=== PATIENT | female | born 1950 | race Caucasian/White ===

== ENCOUNTER → 2022-02-28 07:44 | Outpatient (CLI) | payer MEDICARE, SELFPAY ==
--- NOTE | 2022-02-28 | DI.MG.S_ITS ---
BILATERAL DIGITAL SCREENING MAMMOGRAM 3D/2D WITH CAD: 02/28/2022 CLINICAL: Routine screening. Personal history of left breast cancer. Family history of breast cancer. Comparison is made to exams dated: 03/05/2018 mammogram, 02/28/2018 ultrasound, 02/28/2018 mammogram - [facility], 05/02/2009 mammogram - [facility], and 03/05/2018 ultrasound biopsy - [facility]. Both breasts are heterogeneously dense, which may obscure small masses (category c / 51-75% glandular tissue). Current study was also evaluated with a Computer Aided Detection (CAD) system. There is a possible new asymmetry in the left breast posterior depth superior region seen on the mediolateral oblique view only. No other significant masses, calcifications, or other findings are seen in either breast. IMPRESSION: INCOMPLETE: NEEDS ADDITIONAL IMAGING EVALUATION The possible new asymmetry in the left breast is indeterminate. Additional views with possible ultrasound are recommended. This exam was interpreted at Station ID: [id number]. NOTE: For mammograms, a report in lay terms will be sent to the patient. Approximately 15% of breast malignancies will not be visualized mammographically. In the management of a palpable breast mass, a negative mammogram must not discourage biopsy of a clinically suspicious lesion. Electronically Signed By: Geoffrey Chong M.D., jr/fátima:03/01/2022 13:10:44 letter sent: Additional Imaging Needed ACR BI-RADS Category 0: Incomplete [id number]
== END ==
PROVIDERS: PCP Family Medicine; Referring Provider Family Medicine; Visit Provider Family Medicine
DX: Z12.31 Encounter for screening mammogram for malignant neoplasm of breast (principal); Z85.3 Personal history of malignant neoplasm of breast; Z80.3 Family history of malignant neoplasm of breast
CPT/HCPCS: 77063; 77067

== ENCOUNTER → 2022-03-26 13:28 | Outpatient (CLI) | payer MEDICARE, SELFPAY ==
--- NOTE | 2022-03-26 | DI.MG.S_ITS ---
UNILATERAL LEFT DIGITAL DIAGNOSTIC MAMMOGRAM 3D/2D WITH ADDITIONAL VIEWS: 03/26/2022 CLINICAL: Additional evaluation requested from prior study. Comparison is made to exams dated: 02/28/2022 mammogram - [facility], 03/05/2018 mammogram, and 02/28/2018 mammogram - [facility]. The left breast is heterogeneously dense, which may obscure small masses (category c / 51-75% glandular tissue). There is an oval lymph node in the left breast posterior depth superior region seen on the mediolateral oblique view only. Benign vascular calcifications in the left breast. Several clips. No other significant masses or calcifications are seen in the breast. IMPRESSION: INCOMPLETE: NEEDS ADDITIONAL IMAGING EVALUATION The oval lymph node in the left breast is indeterminate. A targeted ultrasound is recommended and will immediately follow. This exam was interpreted at Station ID: [id number]. NOTE: For mammograms, a report in lay terms will be sent to the patient. Approximately 15% of breast malignancies will not be visualized mammographically. In the management of a palpable breast mass, a negative mammogram must not discourage biopsy of a clinically suspicious lesion. Electronically Signed By: Regan Leach M.D. slc/:03/26/2022 14:10:42 ACR BI-RADS Category 0: Incomplete [id number]
--- NOTE | 2022-03-26 13:29 | DI.US.S_ITS ---
ULTRASOUND OF LEFT AXILLA: 03/26/2022 CLINICAL: Patient returns today to evaluate a focal asymmetry in the left breast. Comparison is made to exams dated: 03/26/2022 mammogram, 02/28/2022 mammogram - [facility], 03/05/2018 ultrasound biopsy, 03/05/2018 mammogram, 02/28/2018 mammogram, and 02/28/2018 ultrasound - [facility]. Color flow and real-time ultrasound of the left axilla were performed. Cuevas scale images of the real-time examination were reviewed. There is a 1.1 cm lymph node with uniform cortical thickening in the left axilla. This lymph node is hypoechoic with no fatty hilum. This correlates with mammography findings. There are calcifications within the mass. Color flow imaging demonstrates that there is vascularity present. There is a second immediately adjacent similar appearing suspicious lymph node. IMPRESSION: SUSPICIOUS OF MALIGNANCY The 1.1 cm lymph node with uniform cortical thickening is at a moderate suspicion for malignancy. An ultrasound guided biopsy of one of the nodes is recommended. Exam findings were discussed with the patient by Dr. Riley. This exam was interpreted at Station ID: [id number]. Electronically Signed By: Regan Leach M.D. slc/:03/26/2022 15:38:06 letter sent: Biopsy Required Ultrasound BI-RADS: 4b Moderate suspicion of malignancy
== END ==
PROVIDERS: PCP Family Medicine; Referring Provider Family Medicine; Visit Provider Family Medicine
DX: R92.8 Other abnormal and inconclusive findings on diagnostic imaging of breast (principal); R59.0 Localized enlarged lymph nodes
CPT/HCPCS: 76642; 77065; G0279

== ENCOUNTER → 2022-04-19 10:08 | Outpatient (CLI) | payer MEDICARE, SELFPAY ==
--- NOTE | 2022-04-19 | DI.MG.S_ITS ---
UNILATERAL LEFT DIGITAL DIAGNOSTIC MAMMOGRAM 3D/2D POST-PROCEDURE IMAGING FOR MARKER PLACEMENT: 04/19/2022 CLINICAL: Left post clip. Comparison is made to exams dated: 03/26/2022 ultrasound, 03/26/2022 mammogram, and 02/28/2022 mammogram - . There is a clip in the left axilla adjacent to the biopsied lymph node. IMPRESSION: POST PROCEDURE MAMMOGRAM FOR MARKER PLACEMENT Biopsy clip in the left axilla. This exam was interpreted at Station ID: [id number]. NOTE: For mammograms, a report in lay terms will be sent to the patient. Approximately 15% of breast malignancies will not be visualized mammographically. In the management of a palpable breast mass, a negative mammogram must not discourage biopsy of a clinically suspicious lesion. Electronically Signed By: Joan Moran M.D. fx/:04/20/2022 13:05:37 Entry: - 04/20/2022 13:05:37 ACR BI-RADS Category Post-procedure mammogram for marker placement
--- NOTE | 2022-04-19 | DI.US.S_ITS ---
ULTRASOUND GUIDED BIOPSY LEFT BREAST USING VACUUM DEVICE WITH POST MAMMOGRAPHIC AND ULTRASOUND IMAGIN04/19/2022 CLINICAL: Left axillary node biopsy. PATIENT CONSENT: Risks (minor bleeding, infection, vasovagal reaction and repeat procedure), benefits and alternatives were explained to the patient and written informed consent was obtained. Correlation is made to exams dated: 04/19/2022 mammogram, 03/26/2022 ultrasound, 03/26/2022 mammogram, 02/28/2022 mammogram - [facility], 03/05/2018 ultrasound biopsy, and 02/28/2018 ultrasound - [facility]. An ultrasound guided biopsy using real-time ultrasound was performed for the lymph node located in the left axillary tail. This was described on the previous ultrasound report. The skin was prepped in the usual manner. Local anesthetic was administered to the access site. The abnormality was approached from the lateral aspect. An 18 gauge biopsy needle was placed adjacent to the abnormality under ultrasound guidance. Once the needle was documented to be in the correct location, five specimens were obtained using the Mammotome biopsy system. Post procedure mammographic and ultrasound imaging demonstrates the clip at the targeted area. The specimens were sent to the laboratory for pathological analysis. IMPRESSION: ULTRASOUND GUIDED BIOPSY HIGH RISK BENIGN Ultrasound guided biopsy of the lymph node in the left axillary tail was successful. 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 Pathology results are concordant with imaging findings. A surgical consultation is recommended and excisional biopsy is recommended. This exam was interpreted at Station ID: [id number]. Joan Sawant M.D. fx,acr/:04/26/2022 16:02:30
--- NOTE | 2022-04-19 | PATH_ITS ---
[facility] Accession Number: [id number] No. of containers..01 Tissue . 01 Material submitted: . axilla - LEFT AXILLA POSTERIOR LYMPH NODE #2 . 01 Diagnosis: Left Axilla Posterior Lymph Node #2, Biopsy: Fibroadipose tissue and rare avulsed fragments of atypical ductal proliferation, cannot further characterize, see microscopic description. No lymphoid tissue is present on multiple deeper levels examined. Recommend excisional biopsy for definitive diagnosis. YANE 04/25/2022 1716 Local . 01 Electronically signed: . Norman Serna MD, Pathologist NPI- [id number] . 01 Gross description: . The specimen is received in formalin labeled with the patient's name, , and Lt. axilla LN, and consists of multiple greer to yellow soft tissue fragments aggregating to 1.5 x 0.2 x 0.1 cm. The specimen is filtered into a biopsy bag and submitted entirely in cassette A1. The specimen was removed on 04/19/2022 at 1200 hours, time in formalin not provided, cold ischemic time cannot be calculated, total fixation time is approximately 38 hours. ([id number]) /YANE 04/20/2022 1056 Local . 01 Microscopic: . Microscopic examination of the left axillary posterior lymph node biopsy reveals fibroadipose tissue and only rare avulsed, detached fragments of atypical ductal proliferation composed of cells with uniform appearance without significant pleomorphism, with focal cribriform formation and with rare mitotic figure. To further characterize those rare clusters of atypical cells and in view of abnormal imaging studies (lymph node and left breast) as well as reported personal history of left breast cancer (per submitted mammography and ultrasound reports) multiple deeper levels and a limited panel of immunostains is performed with the following results: . ER: Atypical cells diffuse, strong positive. GATA3: Atypical cells diffuse strong positive. CK5/6: Loss of expression on the atypical cells. P63: Loss of expression. Smooth muscle actin: Loss of expression. . Strong ER expression in conjunction with loss of CK5/6 expression argues against benign ductal hyperplasia of usual type, and supports atypical ductal hyperplasia (ADH) or ductal carcinoma in situ (DCIS). Although the myoepithelial markers p63 and smooth muscle actin are lost raising the possibility of an invasive process, this cannot be definitely supported due to the lack of architecture in this extremely limited biopsy without stroma around the atypical ducts. In addition, no intact breast tissue and no lymphoid tissue is present, on multiple deeper levels examined. . Recommend further followup and excisonal biopsy to accurately characterize the abormal reported radiologic findings. . As part of ongoing quality control engineering technician, this case was also reviewed by Dr. Neisha Wesley, who agrees with the interpretation. . . * This test was developed and its performance characteristics determined by [facility]. It has not been cleared or approved by the U.S. Food and Drug Administration. The FDA has determined that such clearance or approval is not necessary. This test is used for clinical purposes. It should not be regarded as investigational or for research. . 01 Pathologist provided ICD-10: R92.8 . 01 CPT . 989492, Z33478, K43110 Specimen Comment: A courtesy copy of this report has been sent to [facility] Pathology Performed at: 01 [facility] [address] [place] [address], [place], [place] [id number] MD Carmine Echols MD Phone: [phone]
== END ==
PROVIDERS: PCP Family Medicine; Referring Provider Family Medicine; Visit Provider Family Medicine
DX: N63.32 Unspecified lump in axillary tail of the left breast (principal); R59.0 Localized enlarged lymph nodes
CPT/HCPCS: 38505; 76942; 77065

== ENCOUNTER → 2022-04-26 06:51 | Outpatient (CLI) | payer MEDICARE, SELFPAY ==
--- NOTE | 2022-04-26 06:52 | DI.US.S_ITS ---
PROCEDURE: US SOFT TISSUE HEAD AND NECK INDICATIONS: LUMP IN NECK TECHNIQUE: Real-time scanning was performed of the neck region of interest, with image documentation. COMPARISON: None. FINDINGS: At the patient indicated area of clinical concern, the superficial soft tissues of the right posterior neck, a hypoechoic rounded structure is present measuring 1.3 x 1.3 x 1.3 cm. No internal vascularity visualized on Doppler imaging. There is posterior acoustic enhancement. The finding appears to abut the skin surface. IMPRESSION: A 1.3 cm hypoechoic structure is present within the superficial soft tissues at the patient indicated area of concern. It could represent an epidermoid cyst but other etiologies cannot be definitively excluded. Clinical follow-up is recommended and if indicated, such as an increase in size of the finding or development of symptoms such as pain, repeat imaging such as ultrasound or MR could be performed or surgical excision could be considered. Dictated by: Roberto Schmitz M.D. on 04/26/2022 at 9:48 Approved by: Roberto Schmitz M.D. on 04/26/2022 at 9:54
== END ==
PROVIDERS: PCP Family Medicine; Referring Provider Family Medicine; Visit Provider Family Medicine
DX: R22.1 Localized swelling, mass and lump, neck (principal)
CPT/HCPCS: 76536

== ENCOUNTER 2022-05-15 11:37 | Day surgery (SDC) | payer MEDICARE, SELFPAY ==
[2022-05-11 13:15] VITALS: BMI 28.0
--- NOTE | 2022-05-15 12:13 | SUR.PREOP ---
Pt surgery cancelled by MD due to emergency.
== END 2022-05-15 11:40 | disposition home or self-care (01) ==
LOC: OR 11:38
PROVIDERS: PCP Family Medicine; Referring Provider Surgery; Visit Provider Surgery

== ENCOUNTER 2022-05-18 11:51 | Day surgery (SDC) | payer MEDICARE, SELFPAY ==
[2022-05-16 15:04] VITALS: BMI 28.0
--- NOTE | 2022-05-18 | PATH_ITS ---
[facility] Accession Number: [id number] No. of containers..02 Tissue . 01 Material submitted: . PART A: lymph node - RIGHT AXILLARY NODE PART B: lymph node - LEFT AXILLARY NODE . 01 Clinical history: . B: SINGLE STITCH SUPERIOR, LONG LATERAL, DOUBLE ANTERIOR . 01 Diagnosis: A. Right Axillary Node, Excision: One nodule (19 mm) positive for invasive carcinoma, consistent with breast origin by immunohistochemistry studies. Calcifications present. No lymphoid tissue identified. Please see comment. . B. Left Axillary Node, Excision: One nodule (20 mm) positive for invasive carcinoma, consistent with breast origin by immunohistochemistry studies. Calcifications present. Focally narrowly excised; inked margins not involved by tumor. No lymphoid tissue identified. Second nodule (30 mm) consists of a blood vessel with Monckeberg's medial calcific sclerosis; patchy foreign body giant cell reaction. Please see comment. MRV 05/25/2022 0900 Local . 01 Comment: A and B: Histologic features demonstrate lobulated nodules of tumor in a background of fibroadiopose tissue. Scant breast tissue elements present in part B. No lymphoid tissue is identified in A or B. Histologic features of parts A and B are similar. Immunohistochemistry studies are consistent with invasive breast carcinoma of no special type (ductal). . As part of routine quality control representative, this case was also reviewed by Dr. Anya Calvert, who agrees with the interpretation. . Preliminary results discussed with Alejandro, from Dr. Butler's care team on 05-22-22 at approximately 3:05 p.m. . 01 Electronically signed: . Naila Cummings MD, Pathologist NPI- [id number] . 01 Gross description: . A. Received in formalin, labeled with the patient's name, , and right axillary lymph node, and consists of a single greer lymph node candidate with a small amount of attached yellow adipose measuring 1.9 x 1.5 x 1.3 cm. The specimen is serially sectioned and submitted entirely in cassettes A1-A2. B. Received in formalin, labeled with the patient's name, , and left axillary nod, and consists of two yellow soft tissue fragments. The first is oriented with three sutures, a single stitch superior, a long stitch lateral, and a double stitch anterior per the requisition. The specimen measures 3.0 cm SI, 1.7 cm ML, and 1.7 cm AP and is inked as follows: Anterior yellow, posterior black, medial blue, lateral green, superior orange, inferior red. The specimen is serially sectioned from superior to inferior into five slices. The cut surface is significant for a hard, tubular structure consistent with a possible calcified vessel running from superior to inferior and measuring 0.1 cm in diameter. The remaining cut surface is yellow, soft adipose tissue with no additional lesions identified. The second fragment of tissue is consistent with a lymph node candidate with attached yellow adipose measuring 2.0 x 1.3 x 1.1 cm. The external surface is inked blue. Sectioning reveals a yellow to greer cut surface. The specimen is submitted entirely as follows: B1: First fragment slice 1 perpendicular. B2: First fragment slice 2. B3: First fragment slice 3. B4: First fragment slice 4. B5: First fragment slice 5 perpendicular. B6-B7: Entire second fragment. . The specimen was removed on 05/18/2022, time not provided. Cold ischemic time cannot be calculated. Total fixation time is approximately 53 hours. ([id number]) /[facility] 05/19/2022 1648 Local . 01 Microscopic: . An immunohistochemistry panel is performed to further evaluate the cells of interest. The control stains show appropriate reactivity. . RESULTS: GATA3: Positive. KELLY: Positive. S100: Negative. SOX10: Negative. E-cadherin: Positive, supports ductal differentiation. P63: Negative . Results support a breast carcinoma origin (KELLY, ER, and GATA3 positive) with ductal differentiation (E-cadherin positive). Melanoma and squamous markers are negative (SOX10, S100, P63). . CAP BREAST BIOMARKER REPORTING TEMPLATE: . Estrogen Receptor (ER) Status: Positive. Average intensity of staining: Strong staining, greater than 90% of tumor nuclei. Primary antibody: SP1 Progesterone Receptor (PgR) Status: Positive. Average intensity of staining: Weak staining, approximately 1-10% of tumor nuclei. Primary antibody: 1E2 HER2 (by immunohistochemistry): Negative at 1+/low HER2. Percentage of cells with uniform intense complete membrane stainin. Primary antibody: 4B5 HER2 (ERBB2) (by in situ hybridization): Not performed. . Cold Ischemia time cannot be calculated. Fixation Time: Approximately 53 hours. . Meets requirements in the latest version of the ASCO/CAP guidelines. Testing performed on Block Number: A1. . TECHNICAL NOTE: The scoring criteria for breast biomarkers by immunohistochemistry is based on the current ASCO/CAP guidelines (Manny et al, Arch Pathol Lab Med 2010: 134(6): 907-922 / Yoselin Vanessa, Arch Pathol Lab Med 2014: 138(2):241-256). Deparaffinized sections of formalin fixed tissue (along with appropriate positive controls) are incubated with the above antibody(s). Using the automated [place] stainer, tissue is incubated with the designated antibody* which is then localized by a non-biotin, dual polymer detection system. The external controls are reviewed for appropriate reactivity and found to be adequate. Results on the target cell population are indicated above. These tests have not been validated on decalcified tissue. * This test was developed and its performance characteristics determined by [facility]. It has not been cleared or approved by the U.S. Food and Drug Administration. The FDA has determined that such clearance or approval is not necessary. This test is used for clinical purposes. It should not be regarded as investigational or for research. . 01 Pathologist provided ICD-10: R59.1 . 01 CPT . 456268, 238046, Y51042, Z47993, 020168, 619818, 923750 Specimen Comment: A courtesy copy of this report has been sent to [phone] Performed at: 01 [facility] [address] [place] [address], [place], [place] [id number] MD Carmine Echols MD Phone: [phone]
[2022-05-18 12:22] VITALS: BP 190/96; PULSE 93; RESP 16; TEMP 36.8; O2SAT 96; BMI 28.0
[2022-05-18] MEDS: LACTATED RINGERS 1,000 ML 84 ML IV (12:48)
--- NOTE | 2022-05-18 12:48 | PM.PREOP ---
Pre-operative Note COVID-19 COVID-19 status: Negative Criteria for continued procedure: Expected advancement of disease process Interval Note History & Physical reviewed/Exam performed by Physician: Yes Changes to H&P: No H&P completed within 30 days and has changed as indicated here:: office H and P 05/09/22.
[2022-05-18] MEDS: GABAPENTIN 600 MG TABLET PO (13:04)
[2022-05-18] MEDS: ACETAMINOPHEN 325 MG TABLET 975 MG PO (13:04)
[2022-05-18] MEDS: CEFAZOLIN 2 GM/100 ML PREMIX 100 ML IV (13:06)
--- NOTE | 2022-05-18 13:32 | SUR.OPER ---
Supine on padded OR bed, head on pillow, arms secured on padded arm boards at <90 degrees abduction, legs uncrossed, safety belt at thigh, tape over blanket over lower legs.
[2022-05-18] MEDS: BUPIVACAINE 0.25% (PF) VIAL 30 ML INJ (13:42)
[2022-05-18] MEDS: EPINEPHrine 1 MG/ML 0.15 MG IM (13:42)
[2022-05-18 13:52] VITALS: BP 141/88; PULSE 82; RESP 12; TEMP 36.8; O2SAT 96
--- NOTE | 2022-05-18 13:52 | PM.OP.1 ---
Operative Date/Time/Diagnoses Date of procedure: 05/18/22 Time of procedure: 13:52 Pre-op diagnosis: Bilateral axillary masses Post-op diagnosis: same Procedure & Clinicians Procedure: Excisional biopsy bilateral axillary mass Same procedure as scheduled: Yes Indications: Bilateral axillary mass Surgeon: Angelica Rosenthal Click Yes if Unassisted: Yes Anesthesia Type: General and Local Operative Notes Findings: Right posterior axillary mass likely adenopathy. Left anterior axillary mass combination of breast tissue and adenopathy Closure Type: primary Specimen(s): other (1. Right axillary lymph node, 2. Left breast tissue, 3. Left axillary lymph node ) Estimated Blood Loss (mL): 5 Blood products transfused: none Procedure in detail: Preop diagnosis: Bilateral axillary mass Postop diagnosis: Same Operative procedure: Bilateral axillary mass excisional biopsies Surgeon: Sera Rosenthal MD Findings: Right posterior axillary mass, lymph node Right anterior axillary mass 1. Breast tissue, 2. Lymph node? Anesthetic: General with LMA intubation along with local Procedure: Patient placed in a supine position. Prepped and draped in sterile fashion to expose both axillary areas. Right axilla was treated 1st using 15 blade for sharp incision followed by Metzenbaum scissors for excision of palpable posterior axillary mass. Hemostasis achieved with direct pressure and electrocautery. Skin closed with a running 3-0 Stratafix. Tissue glue over the incision. Left anterior axillary mass was addressed using 15 blade for creation of the wound. And excision of breast tissue using Metzenbaum scissors. Specimen marked single short superior, single long lateral, double short anterior. Hemostasis achieved with electrocautery. Second specimen more posterior to the 1st specimen was taken with Metzenbaum scissors without orientation markings. Again hemostasis achieved with electrocautery and direct pressure. One was closed in a two-layer fashion using interrupted 3-0 Vicryl for subcutaneous tissue. Skin closed with a running 3-0 Stratafix. Tissue glue placed for external dressing. Patient was awakened, extubated, taken to recovery room in stable condition. Needle, instrument, sponge counts were correct. Specimen: 1. Right axillary lymph node, 2. Left breast tissue, 3. Left lymph node. Blood loss: 5 mL Complications: none Post-operative Condition: stable Disposition: PACU
[2022-05-18 13:57] VITALS: BP 150/88; PULSE 82; RESP 16; O2SAT 94
[2022-05-18 14:02] VITALS: BP 158/103; PULSE 85; RESP 12; O2SAT 94
[2022-05-18 14:09] VITALS: BP 150/101; PULSE 78; RESP 16; TEMP 36.6; O2SAT 94
== END 2022-05-18 14:27 | disposition home or self-care (01) ==
PROVIDERS: PCP Family Medicine; Referring Provider Surgery; Visit Provider Surgery
PROC: (CPT 38500; principal; 2022-05-18 13:15)
DX: C77.3 Secondary and unspecified malignant neoplasm of axilla and upper limb lymph nodes (principal); Z17.0 Estrogen receptor positive status [ER+]; Z85.3 Personal history of malignant neoplasm of breast
CPT/HCPCS: 38500; J0171; J0690; J1100; J2405; J2704; J3010

== ENCOUNTER → 2022-05-30 13:57 | Outpatient (CLI) | payer MEDICARE, SELFPAY ==
[2022-05-30 14:34] LABS: Add Manual Diff / Slide Review NO; Basophils Absolute Auto 100 /uL (0-100); Basophils Percent Auto 0.7 % (0-2); Eosinophils Absolute Auto 0 /uL (0-450); Eosinophils Percent Auto 0.3 % (2-4); Hematocrit 40.2 % (36-46); Hemoglobin 13.6 g/dL (12.0-16.0); Lymphocytes Absolute Auto 1600 /uL (1100-4500); Lymphocytes Percent Auto 21.1 % (25-40); Mean Corpuscular HGB Conc 33.9 % (30-36); Mean Corpuscular Hemoglobin 31.6 PG (26-34); Mean Corpuscular Volume 93.2 fL (80-100); Monocytes Absolute Auto 800 /uL (0-900); Monocytes Percent Auto 10.7 % (3-14); Neutrophils Absolute Auto 5300 /uL (1500-7000); Neutrophils Percent Auto 67.2 % (50-75); Platelet Count 310 X10^3/uL (150-400); Red Blood Cell Count 4.32 X10^6/uL (4.0-5.2); Red Cell Distribution Width 13.9 % (11.6-14.8); White Blood Cell Count 7.8 X10^3/uL (4.5-11.0)
[2022-05-30 15:04] LABS: Alanine Aminotransferase 30 IU/L (<35); Albumin 4.6 g/dL (3.5-5.0); Albumin Globulin Ratio 1.4 (1.0-2.8); Alkaline Phosphatase 106 U/L (38-126); Aspartate Aminotransferase 45 IU/L (14-36); BUN Creatinine Ratio 21.7 (6-22); Bilirubin Total 0.5 mg/dL (0.2-1.3); Blood Urea Nitrogen 15 mg/dL (7-17); Calcium 9.4 mg/dL (8.4-10.2); Carbon Dioxide 25 mmol/L (22-32); Chloride 95 mmol/L (98-107); Estimated Glomerular Filt Rate > 60 mL/min (>60); Globulin 3.3 g/dL (1.7-4.1); Glucose 108 mg/dL (80-110); HEMOLYSIS < 15 (0-50); Potassium 4.3 mmol/L (3.4-5.1); Sodium 132 mmol/L (137-145); Total Protein 7.9 g/dL (6.3-8.2)
--- NOTE | 2022-05-31 10:04 | ONC.MSW ---
Description: New Referral Navigation T/C Reason for Referral: Breast Cancer w/lymphadenopathy Activity: Reviewed referral and EMR for medical status, acuity, and immediate needs. Pt recently dx with recurrent breast cancer, first dx in 2019 at [facility], had a lumpectomy followed by radiation. All imaging is in the EMR, pathology is in the EMR. Called pt to discuss referral and hx of breast cancer. Discussed the role of navigation services and assessed immediate needs, no immediate needs identified at this time. Confirmed her initial consult visit for 06/07 at 11:20am.
== END ==
PROVIDERS: PCP Family Medicine; Referring Provider Surgery; Visit Provider Surgery
DX: C50.919 Malignant neoplasm of unspecified site of unspecified female breast (principal)
CPT/HCPCS: 36415; 80053; 85025

== ENCOUNTER → 2022-06-12 12:05 | Outpatient (CLI) | payer MEDICARE, SELFPAY ==
--- NOTE | 2022-06-12 12:06 | DI.MRI.S_ITS ---
BREAST MRI OF BOTH BREASTS: 06/12/2022 CLINICAL: Malignant neoplasm of breast. PROCEDURE: MR BREAST BI WO/W CON INDICATIONS: Breast cancer TECHNIQUE: The patient was placed prone in a dedicated breast imaging coil. Precontrast axial STIR and 3D FLASH without fat saturation sequences were obtained. Both before and after bolus injection of contrast, sequential 1-minute axial 3D FLASH with fat saturation sequences for 3 time points, with subtraction images and maximum intensity projections (MIP's) generated. Delayed sagittal FLASH images with fat saturation were also obtained. Computer-aided detection, including computer algorithm analysis of MRI image data for lesion detection and characterization, pharmacokinetic analysis, with further physician review for interpretation, was performed. COMPARISON: Outside Film, MR, MR BREAST RIGHT WITH/WITHOUT CONTRAST, 04/10/2018, 12:49. FINDINGS: Image quality: Excellent. There is minimal background parenchymal enhancement. Right breast: There are multiple new enhancing breast masses in the right breast when compared with the prior MRI dated April 10, 2018. A financial services representative enhancing nodule is present at 2 o'clock at a middle depth which measures 8 x 9 mm in the axial plane (series 12/image 90). Another enhancing mass is present at a posterior depth at 7 o'clock which measures 1.1 x 1.5 cm (series 12/image 71). 2 similar enhancing mass lesions are present within the inferior aspect of the axilla (series 12/image 40). Left breast: A probable lumpectomy cavity is noted within the upper outer quadrant of the left breast with trace fluid centrally and mild rim enhancement. An enhancing mass is present anterior to this surgical bed. Additionally, multiple other enhancing mass lesions are present which are new when compared with the prior study and are suspicious for recurrent, multicentric disease. 3 financial services representative subcentimeter enhancing masses are visualized at the level of the nipple, 2 of which are on the medial side of the breast and 1 of which is on the lateral side (series 12/image 77). A similar lobulated enhancing mass lesion is present at 12 o'clock at middle depth and measures 1.3 x 1.3 cm in the axial plane (series 12/image 82). Miscellaneous: No abnormal right axillary lymph nodes are visualized. There are multiple abnormal left axillary lymph nodes which appear to have thickened cortices and absence of fatty delisa. Multiple enhancing foci are present within the sternum, some of which have an expansile lytic appearance suggesting multiple bony metastases. There is likely an enhancing expansile lesion at the costosternal junction of an inferior right rib (series 12/image 48). In enhancing soft tissue mass is present within the anterior aspect of an inferior left rib (series 12/image 30). Multiple nonenhancing T1 hypointense, T2 hyperintense foci are present throughout the liver suggesting the presence of hepatic cysts; however these are incompletely characterized on this limited view. IMPRESSION: INCOMPLETE: NEEDS ADDITIONAL IMAGING EVALUATION 1. Multiple bilateral enhancing mass lesions throughout the breast suggesting diffuse metastatic disease. Fat necrosis could also be considered in the differential diagnosis. Second-look ultrasound of the bilateral breasts is recommended to further characterize the enhancing mass lesions in order to differentiate true suspicious masses from fat necrosis. 2. Multiple suspicious bony lesions in the visualized portions of the ribs and the sternum suspicious for multifocal bony metastasis. CT of the chest, abdomen and pelvis is recommended to further characterize the bony abnormalities and evaluate for potential metastatic disease. 3. Multiple abnormal left axillary lymph nodes suspicious for kody metastasis. Electronically Signed By: Minda Lemus M.D. lk/:06/12/2022 16:01:50 letter sent: Additional Imaging Needed ACR BI-RADS Category 0: Incomplete [id number]
== END ==
PROVIDERS: PCP Family Medicine; Referring Provider Surgery; Visit Provider Surgery
DX: C50.919 Malignant neoplasm of unspecified site of unspecified female breast (principal); N63.12 Unspecified lump in the right breast, upper inner quadrant; N63.13 Unspecified lump in the right breast, lower outer quadrant; N63.25 Unspecified lump in the left breast, overlapping quadrants; R59.0 Localized enlarged lymph nodes; M89.9 Disorder of bone, unspecified
CPT/HCPCS: 77049

== ENCOUNTER → 2022-06-16 11:27 | Outpatient (CLI) | payer MEDICARE, SELFPAY ==
[2022-06-16 12:51] LABS: Add Manual Diff / Slide Review NO; Basophils Absolute Auto 100 /uL (0-100); Basophils Percent Auto 0.8 % (0-2); Eosinophils Absolute Auto 0 /uL (0-450); Eosinophils Percent Auto 0.6 % (2-4); Hematocrit 39.8 % (36-46); Hemoglobin 13.5 g/dL (12.0-16.0); Lymphocytes Absolute Auto 2100 /uL (1100-4500); Lymphocytes Percent Auto 29.8 % (25-40); Mean Corpuscular HGB Conc 33.9 % (30-36); Mean Corpuscular Hemoglobin 31.1 PG (26-34); Mean Corpuscular Volume 91.9 fL (80-100); Monocytes Absolute Auto 800 /uL (0-900); Monocytes Percent Auto 11.2 % (3-14); Neutrophils Absolute Auto 4000 /uL (1500-7000); Neutrophils Percent Auto 57.6 % (50-75); Platelet Count 396 X10^3/uL (150-400); Red Blood Cell Count 4.34 X10^6/uL (4.0-5.2); Red Cell Distribution Width 13.5 % (11.6-14.8); White Blood Cell Count 6.9 X10^3/uL (4.5-11.0)
[2022-06-16 13:17] LABS: Alanine Aminotransferase 31 IU/L (<35); Albumin 4.2 g/dL (3.5-5.0); Albumin Globulin Ratio 1.4 (1.0-2.8); Alkaline Phosphatase 134 U/L (38-126); Aspartate Aminotransferase 67 IU/L (14-36); BUN Creatinine Ratio 12.5 (6-22); Bilirubin Total 0.3 mg/dL (0.2-1.3); Blood Urea Nitrogen 8 mg/dL (7-17); Calcium 9.4 mg/dL (8.4-10.2); Carbon Dioxide 26 mmol/L (22-32); Chloride 97 mmol/L (98-107); Estimated Glomerular Filt Rate > 60 mL/min (>60); Glucose 124 mg/dL (80-110); HEMOLYSIS < 15 (0-50); Potassium 4.8 mmol/L (3.4-5.1); Sodium 135 mmol/L (137-145); Total Protein 7.2 g/dL (6.3-8.2)
[2022-06-16 13:48] LABS: Carcinoembryonic Antigen 22.1 ng/mL (0.1-3.0)
[2022-06-16 13:48] LABS: TSH w/ Reflex to FT4 1.75 uIU/mL (0.47-4.68)
[2022-06-21 14:58] LABS: Cancer Antigen 27.29 33.4 U/mL (0.0-38.6)
== END ==
PROVIDERS: PCP Family Medicine; Referring Provider Internal Medicine Hematology & Oncology; Visit Provider Internal Medicine Hematology & Oncology
DX: C44.90 Unspecified malignant neoplasm of skin, unspecified (principal); C50.919 Malignant neoplasm of unspecified site of unspecified female breast; E07.9 Disorder of thyroid, unspecified; C77.3 Secondary and unspecified malignant neoplasm of axilla and upper limb lymph nodes
CPT/HCPCS: 36415; 80053; 82378; 84443; 85025; 86300

== ENCOUNTER → 2022-06-18 15:14 | Outpatient (CLI) | payer MEDICARE, SELFPAY ==
--- NOTE | 2022-06-18 | DI.MRI.S_ITS ---
PROCEDURE: MR ORBITS FACE NECK WO/W CON INDICATIONS: cardiomyopathy TECHNIQUE: Noncontrast sagittal T1 spin echo, axial FLAIR, axial gradient echo, axial diffusion and ADC acquired through the brain. Coronal STIR, thin-slice axial T1 spin echo through the orbits. After the administration of contrast, thin-slice axial and coronal T1 spin echo with fat saturation through the orbits, axial and coronal and sagittal T1 spin echo with fat saturation through the brain. COMPARISON: None. FINDINGS: Image quality: Excellent. Orbits: Globes are symmetrical. Note is made of bilateral lens replacements.The optic nerves are normal in size, without abnormal signal or enhancement. No retrobulbar masses or fat abnormalities. The extra-ocular muscles are normal and symmetric in appearance. Lacrimal glands are normal. Optic chiasm is normal. Periorbital soft tissues appear normal. CSF spaces: Ventricles are normal in size and shape. Basal cisterns are patent. No extra-axial fluid collections. Brain: No intracranial bleeds or mass effects. No abnormal intracranial enhancement. Cuevas-white matter interface is intact. Diffusion weighted images demonstrate no acute ischemic insults. Pituitary gland appears normal, without sellar or suprasellar masses. Brainstem appears normal. Normal intravascular flow voids are present. Skull and face: Several foci of abnormally increased bone marrow signal can be seen within the calvarium. There is soft tissue thickening with enhancement seen adjacent to the right temporal lesion. Sinuses: Prominent abnormal fluid can be seen within the left mastoid air cells. The right mastoid air cells appear clear. No significant paranasal sinus disease can be seen. IMPRESSION: No significant orbital abnormality is seen. No orbital masses are seen. High suspicion for calvarial metastatic disease. Adjacent to the right temporal lesion, there is thickening and enhancement seen involving the scalp, which is attributed to metastatic disease. - If it would be helpful for clinical management decision making in this patient with this given history, a percutaneous biopsy of the right scalp lesion is likely possible. - A dedicated whole bladder nuclear medicine bone scan may also be helpful for further evaluation. Dictated by: Rock Cedeno M.D. on 06/18/2022 at 15:49 Approved by: Rock Cedeno M.D. on 06/18/2022 at 15:53
== END ==
PROVIDERS: PCP Family Medicine; Referring Provider Internal Medicine Hematology & Oncology; Visit Provider Internal Medicine Hematology & Oncology
DX: C79.51 Secondary malignant neoplasm of bone (principal); C50.919 Malignant neoplasm of unspecified site of unspecified female breast; I42.7 Cardiomyopathy due to drug and external agent; H53.9 Unspecified visual disturbance; R22.0 Localized swelling, mass and lump, head
CPT/HCPCS: 70543; 93005

== ENCOUNTER → 2022-07-18 14:54 | Outpatient (CLI) | payer MEDICARE, SELFPAY ==
[2022-07-18 15:54] LABS: Add Manual Diff / Slide Review NO; Basophils Absolute Auto 0 /uL (0-100); Basophils Percent Auto 0.8 % (0-2); Eosinophils Absolute Auto 0 /uL (0-450); Eosinophils Percent Auto 0.5 % (2-4); Hematocrit 33.8 % (36-46); Hemoglobin 11.7 g/dL (12.0-16.0); Lymphocytes Absolute Auto 1500 /uL (1100-4500); Lymphocytes Percent Auto 54.1 % (25-40); Mean Corpuscular HGB Conc 34.6 % (30-36); Mean Corpuscular Volume 92.6 fL (80-100); Monocytes Absolute Auto 100 /uL (0-900); Monocytes Percent Auto 5.4 % (3-14); Neutrophils Absolute Auto 1100 /uL (1500-7000); Neutrophils Percent Auto 39.2 % (50-75); Platelet Count 285 X10^3/uL (150-400); Red Blood Cell Count 3.65 X10^6/uL (4.0-5.2); Red Cell Distribution Width 13.8 % (11.6-14.8); White Blood Cell Count 2.7 X10^3/uL (4.5-11.0)
[2022-07-18 16:10] LABS: Alanine Aminotransferase 20 IU/L (<35); Albumin 4.1 g/dL (3.5-5.0); Albumin Globulin Ratio 1.5 (1.0-2.8); Alkaline Phosphatase 114 U/L (38-126); Aspartate Aminotransferase 31 IU/L (14-36); BUN Creatinine Ratio 17.5 (6-22); Bilirubin Total 0.7 mg/dL (0.2-1.3); Blood Urea Nitrogen 14 mg/dL (7-17); Carbon Dioxide 27 mmol/L (22-32); Chloride 97 mmol/L (98-107); Estimated Glomerular Filt Rate > 60 mL/min (>60); Globulin 2.7 g/dL (1.7-4.1); Glucose 96 mg/dL (80-110); HEMOLYSIS < 15 (0-50); Potassium 4.4 mmol/L (3.4-5.1); Sodium 133 mmol/L (137-145); Total Protein 6.8 g/dL (6.3-8.2)
[2022-07-18 16:37] LABS: Carcinoembryonic Antigen 46.5 ng/mL (0.1-3.0)
[2022-07-19 14:09] LABS: CA 15-3 32.2 U/mL (0.0-25.0)
== END ==
PROVIDERS: PCP Family Medicine; Referring Provider Student in an Organized Health Care Education/Training Program; Visit Provider Student in an Organized Health Care Education/Training Program
DX: C50.412 Malignant neoplasm of upper-outer quadrant of left female breast (principal); Z17.0 Estrogen receptor positive status [ER+]
CPT/HCPCS: 36415; 80053; 82378; 85025; 86300

== ENCOUNTER → 2022-08-08 11:49 | Outpatient (CLI) | payer MEDICARE, SELFPAY ==
[2022-08-08 12:56] LABS: Add Manual Diff / Slide Review NO; Basophils Absolute Auto 100 /uL (0-100); Basophils Percent Auto 1.6 % (0-2); Eosinophils Absolute Auto 0 /uL (0-450); Eosinophils Percent Auto 0.1 % (2-4); Hematocrit 33.5 % (36-46); Hemoglobin 11.4 g/dL (12.0-16.0); Lymphocytes Absolute Auto 1600 /uL (1100-4500); Lymphocytes Percent Auto 51.4 % (25-40); Mean Corpuscular HGB Conc 33.9 % (30-36); Mean Corpuscular Hemoglobin 32.1 PG (26-34); Mean Corpuscular Volume 94.8 fL (80-100); Monocytes Absolute Auto 700 /uL (0-900); Monocytes Percent Auto 20.8 % (3-14); Neutrophils Absolute Auto 800 /uL (1500-7000); Neutrophils Percent Auto 26.1 % (50-75); Platelet Count 358 X10^3/uL (150-400); Red Blood Cell Count 3.53 X10^6/uL (4.0-5.2); White Blood Cell Count 3.2 X10^3/uL (4.5-11.0)
[2022-08-08 13:30] LABS: Alanine Aminotransferase 24 IU/L (<35); Albumin 4.5 g/dL (3.5-5.0); Albumin Globulin Ratio 1.7 (1.0-2.8); Alkaline Phosphatase 131 U/L (38-126); Aspartate Aminotransferase 37 IU/L (14-36); BUN Creatinine Ratio 16.7 (6-22); Bilirubin Total 0.4 mg/dL (0.2-1.3); Blood Urea Nitrogen 10 mg/dL (7-17); Calcium 8.7 mg/dL (8.4-10.2); Carbon Dioxide 28 mmol/L (22-32); Chloride 94 mmol/L (98-107); Estimated Glomerular Filt Rate > 60 mL/min (>60); Globulin 2.7 g/dL (1.7-4.1); Glucose 104 mg/dL (80-110); HEMOLYSIS < 15 (0-50); Potassium 4.7 mmol/L (3.4-5.1); Sodium 131 mmol/L (137-145); Total Protein 7.2 g/dL (6.3-8.2)
[2022-08-15 14:50] LABS: Add Manual Diff / Slide Review NO; Basophils Absolute Auto 100 /uL (0-100); Basophils Percent Auto 1.3 % (0-2); Eosinophils Absolute Auto 0 /uL (0-450); Eosinophils Percent Auto 0.4 % (2-4); Hematocrit 33.8 % (36-46); Hemoglobin 11.6 g/dL (12.0-16.0); Lymphocytes Absolute Auto 2200 /uL (1100-4500); Lymphocytes Percent Auto 41.4 % (25-40); Mean Corpuscular HGB Conc 34.4 % (30-36); Mean Corpuscular Hemoglobin 32.9 PG (26-34); Mean Corpuscular Volume 95.5 fL (80-100); Monocytes Absolute Auto 900 /uL (0-900); Monocytes Percent Auto 17.5 % (3-14); Neutrophils Absolute Auto 2000 /uL (1500-7000); Neutrophils Percent Auto 39.4 % (50-75); Platelet Count 400 X10^3/uL (150-400); Red Blood Cell Count 3.54 X10^6/uL (4.0-5.2); Red Cell Distribution Width 18.2 % (11.6-14.8); White Blood Cell Count 5.2 X10^3/uL (4.5-11.0)
[2022-08-15 15:23] LABS: Alanine Aminotransferase 26 IU/L (<35); Albumin 4.5 g/dL (3.5-5.0); Albumin Globulin Ratio 1.5 (1.0-2.8); Alkaline Phosphatase 152 U/L (38-126); Aspartate Aminotransferase 37 IU/L (14-36); BUN Creatinine Ratio 21.3 (6-22); Bilirubin Total 0.5 mg/dL (0.2-1.3); Blood Urea Nitrogen 13 mg/dL (7-17); Calcium 8.5 mg/dL (8.4-10.2); Carbon Dioxide 27 mmol/L (22-32); Chloride 97 mmol/L (98-107); Estimated Glomerular Filt Rate > 60 mL/min (>60); Glucose 110 mg/dL (80-110); HEMOLYSIS < 15 (0-50); Potassium 4.1 mmol/L (3.4-5.1); Sodium 135 mmol/L (137-145); Total Protein 7.5 g/dL (6.3-8.2)
== END ==
PROVIDERS: PCP Family Medicine; Referring Provider Student in an Organized Health Care Education/Training Program; Visit Provider Student in an Organized Health Care Education/Training Program
DX: C50.412 Malignant neoplasm of upper-outer quadrant of left female breast (principal); Z17.0 Estrogen receptor positive status [ER+]
CPT/HCPCS: 36415; 80053; 85025

== ENCOUNTER → 2022-09-20 13:04 | Outpatient (CLI) | payer MEDICARE, SELFPAY ==
[2022-09-20 14:25] LABS: Add Manual Diff / Slide Review NO; Basophils Absolute Auto 100 /uL (0-100); Basophils Percent Auto 3.3 % (0-2); Eosinophils Absolute Auto 0 /uL (0-450); Eosinophils Percent Auto 0.3 % (2-4); Hematocrit 34.5 % (36-46); Lymphocytes Absolute Auto 1400 /uL (1100-4500); Lymphocytes Percent Auto 43.1 % (25-40); Mean Corpuscular HGB Conc 34.7 % (30-36); Monocytes Absolute Auto 500 /uL (0-900); Monocytes Percent Auto 14.6 % (3-14); Neutrophils Absolute Auto 1200 /uL (1500-7000); Neutrophils Percent Auto 38.7 % (50-75); Platelet Count 324 X10^3/uL (150-400); Red Blood Cell Count 3.42 X10^6/uL (4.0-5.2); Red Cell Distribution Width 22.6 % (11.6-14.8); White Blood Cell Count 3.2 X10^3/uL (4.5-11.0)
[2022-09-20 14:35] LABS: Macrocytosis 2+
== END ==
PROVIDERS: PCP Family Medicine; Referring Provider Student in an Organized Health Care Education/Training Program; Visit Provider Student in an Organized Health Care Education/Training Program
DX: Z17.0 Estrogen receptor positive status [ER+] (principal); C50.412 Malignant neoplasm of upper-outer quadrant of left female breast
CPT/HCPCS: 36415; 85025

== ENCOUNTER → 2022-10-29 16:11 | Outpatient (CLI) | payer MEDICARE, SELFPAY ==
[2022-10-29 17:27] LABS: Add Manual Diff / Slide Review NO; Basophils Absolute Auto 100 /uL (0-100); Basophils Percent Auto 2.1 % (0-2); Eosinophils Absolute Auto 0 /uL (0-450); Eosinophils Percent Auto 0.6 % (2-4); Hemoglobin 11.3 g/dL (12.0-16.0); Lymphocytes Absolute Auto 1700 /uL (1100-4500); Lymphocytes Percent Auto 47.4 % (25-40); Mean Corpuscular HGB Conc 34.2 % (30-36); Mean Corpuscular Hemoglobin 35.7 PG (26-34); Mean Corpuscular Volume 104.4 fL (80-100); Monocytes Absolute Auto 600 /uL (0-900); Monocytes Percent Auto 15.8 % (3-14); Neutrophils Absolute Auto 1200 /uL (1500-7000); Neutrophils Percent Auto 34.1 % (50-75); Platelet Count 297 X10^3/uL (150-400); Red Blood Cell Count 3.16 X10^6/uL (4.0-5.2); Red Cell Distribution Width 17.9 % (11.6-14.8); White Blood Cell Count 3.6 X10^3/uL (4.5-11.0)
== END ==
PROVIDERS: PCP Family Medicine; Referring Provider Nurse Practitioner; Visit Provider Nurse Practitioner
DX: Z17.0 Estrogen receptor positive status [ER+] (principal); C50.412 Malignant neoplasm of upper-outer quadrant of left female breast
CPT/HCPCS: 36415; 85025

== ENCOUNTER → 2022-11-26 14:10 | Outpatient (CLI) | payer MEDICARE, SELFPAY ==
[2022-11-26 14:57] LABS: Add Manual Diff / Slide Review NO; Basophils Absolute Auto 0 /uL (0-100); Basophils Percent Auto 1.4 % (0-2); Eosinophils Absolute Auto 0 /uL (0-450); Eosinophils Percent Auto 0.4 % (2-4); Hematocrit 33.6 % (36-46); Hemoglobin 11.5 g/dL (12.0-16.0); Lymphocytes Absolute Auto 1600 /uL (1100-4500); Lymphocytes Percent Auto 58.3 % (25-40); Mean Corpuscular HGB Conc 34.4 % (30-36); Mean Corpuscular Hemoglobin 36.7 PG (26-34); Mean Corpuscular Volume 106.7 fL (80-100); Monocytes Absolute Auto 400 /uL (0-900); Monocytes Percent Auto 14.6 % (3-14); Neutrophils Absolute Auto 700 /uL (1500-7000); Neutrophils Percent Auto 25.3 % (50-75); Platelet Count 228 X10^3/uL (150-400); Red Blood Cell Count 3.15 X10^6/uL (4.0-5.2); Red Cell Distribution Width 17.3 % (11.6-14.8); White Blood Cell Count 2.7 X10^3/uL (4.5-11.0)
[2022-11-26 15:17] LABS: Alanine Aminotransferase 26 IU/L (<35); Albumin 4.6 g/dL (3.5-5.0); Albumin Globulin Ratio 1.8 (1.0-2.8); Alkaline Phosphatase 93 U/L (38-126); Aspartate Aminotransferase 39 IU/L (14-36); Bilirubin Total 0.3 mg/dL (0.2-1.3); Blood Urea Nitrogen 15 mg/dL (7-17); Calcium 9.7 mg/dL (8.4-10.2); Carbon Dioxide 27 mmol/L (22-32); Chloride 99 mmol/L (98-107); Estimated Glomerular Filt Rate > 60 mL/min (>60); Globulin 2.6 g/dL (1.7-4.1); Glucose 95 mg/dL (80-110); HEMOLYSIS < 15 (0-50); Potassium 4.7 mmol/L (3.4-5.1); Sodium 136 mmol/L (137-145); Total Protein 7.2 g/dL (6.3-8.2)
== END ==
PROVIDERS: PCP Family Medicine; Referring Provider Internal Medicine Hematology & Oncology; Visit Provider Internal Medicine Hematology & Oncology
DX: Z17.0 Estrogen receptor positive status [ER+] (principal); C50.412 Malignant neoplasm of upper-outer quadrant of left female breast
CPT/HCPCS: 36415; 80053; 85025

== ENCOUNTER → 2022-12-03 12:58 | Outpatient (CLI) | payer MEDICARE, SELFPAY ==
[2022-12-03 14:32] LABS: Add Manual Diff / Slide Review NO; Basophils Absolute Auto 0 /uL (0-100); Basophils Percent Auto 1.4 % (0-2); Eosinophils Absolute Auto 0 /uL (0-450); Eosinophils Percent Auto 0.7 % (2-4); Hematocrit 34.4 % (36-46); Hemoglobin 11.7 g/dL (12.0-16.0); Lymphocytes Absolute Auto 1600 /uL (1100-4500); Lymphocytes Percent Auto 47.5 % (25-40); Mean Corpuscular Hemoglobin 36.2 PG (26-34); Mean Corpuscular Volume 106.6 fL (80-100); Monocytes Absolute Auto 700 /uL (0-900); Monocytes Percent Auto 20.8 % (3-14); Neutrophils Absolute Auto 1000 /uL (1500-7000); Neutrophils Percent Auto 29.6 % (50-75); Platelet Count 350 X10^3/uL (150-400); Red Blood Cell Count 3.23 X10^6/uL (4.0-5.2); Red Cell Distribution Width 16.8 % (11.6-14.8); White Blood Cell Count 3.4 X10^3/uL (4.5-11.0)
== END ==
PROVIDERS: PCP Family Medicine; Referring Provider Internal Medicine Hematology & Oncology; Visit Provider Internal Medicine Hematology & Oncology
DX: D70.2 Other drug-induced agranulocytosis (principal)
CPT/HCPCS: 36415; 85025

== ENCOUNTER → 2023-01-01 09:51 | Outpatient (CLI) | payer MEDICARE, SELFPAY ==
[2023-01-01 11:18] LABS: Hematocrit 32.1 % (36-46); Hemoglobin 11.1 g/dL (12.0-16.0); Mean Corpuscular HGB Conc 34.4 % (30-36); Mean Corpuscular Hemoglobin 36.9 PG (26-34); Mean Corpuscular Volume 107.3 fL (80-100); Platelet Count 220 X10^3/uL (150-400); Red Cell Distribution Width 16.9 % (11.6-14.8)
[2023-01-01 11:23] LABS: Alanine Aminotransferase 31 IU/L (<35); Albumin 4.5 g/dL (3.5-5.0); Albumin Globulin Ratio 1.6 (1.0-2.8); Alkaline Phosphatase 66 U/L (38-126); Aspartate Aminotransferase 52 IU/L (14-36); BUN Creatinine Ratio 17.5 (6-22); Bilirubin Total 0.6 mg/dL (0.2-1.3); Blood Urea Nitrogen 17 mg/dL (7-17); Calcium 9.6 mg/dL (8.4-10.2); Carbon Dioxide 28 mmol/L (22-32); Chloride 104 mmol/L (98-107); Estimated Glomerular Filt Rate > 60 mL/min (>60); Globulin 2.8 g/dL (1.7-4.1); Glucose 115 mg/dL (80-110); Sodium 139 mmol/L (137-145); Total Protein 7.3 g/dL (6.3-8.2)
[2023-01-01 11:24] LABS: Add Manual Diff / Slide Review YES
[2023-01-01 11:26] LABS: HEMOLYSIS 56 (0-50)
[2023-01-01 11:45] LABS: Macrocytosis 1+; Neutrophils Absolute Manual 360 /uL (3000-5900); Total Cells Counted 100
[2023-01-01 11:51] LABS: Carcinoembryonic Antigen 37.7 ng/mL (0.1-3.0)
== END ==
PROVIDERS: PCP Family Medicine; Referring Provider Student in an Organized Health Care Education/Training Program; Visit Provider Student in an Organized Health Care Education/Training Program
DX: C50.412 Malignant neoplasm of upper-outer quadrant of left female breast (principal); Z17.0 Estrogen receptor positive status [ER+]
CPT/HCPCS: 36415; 80053; 82378; 85007; 85025; 86300

== ENCOUNTER → 2023-01-16 15:13 | Outpatient (CLI) | payer MEDICARE, SELFPAY ==
[2023-01-16 15:32] LABS: Add Manual Diff / Slide Review NO; Basophils Absolute Auto 100 /uL (0-100); Basophils Percent Auto 1.4 % (0-2); Eosinophils Absolute Auto 0 /uL (0-450); Eosinophils Percent Auto 0.1 % (2-4); Hematocrit 37.3 % (36-46); Hemoglobin 12.7 g/dL (12.0-16.0); Lymphocytes Absolute Auto 1800 /uL (1100-4500); Lymphocytes Percent Auto 31.4 % (25-40); Mean Corpuscular HGB Conc 33.9 % (30-36); Mean Corpuscular Hemoglobin 35.9 PG (26-34); Mean Corpuscular Volume 105.9 fL (80-100); Monocytes Absolute Auto 500 /uL (0-900); Monocytes Percent Auto 9.3 % (3-14); Neutrophils Absolute Auto 3300 /uL (1500-7000); Neutrophils Percent Auto 57.8 % (50-75); Platelet Count 401 X10^3/uL (150-400); Red Blood Cell Count 3.52 X10^6/uL (4.0-5.2); Red Cell Distribution Width 16.3 % (11.6-14.8); White Blood Cell Count 5.7 X10^3/uL (4.5-11.0)
== END ==
PROVIDERS: PCP Family Medicine; Referring Provider Nurse Practitioner; Visit Provider Nurse Practitioner
DX: C50.412 Malignant neoplasm of upper-outer quadrant of left female breast (principal); Z17.0 Estrogen receptor positive status [ER+]
CPT/HCPCS: 36415; 85025

== ENCOUNTER → 2023-02-20 08:43 | Outpatient (CLI) | payer MEDICARE, SELFPAY ==
[2023-02-20 10:15] LABS: Add Manual Diff / Slide Review NO; Basophils Absolute Auto 0 /uL (0-100); Basophils Percent Auto 1.6 % (0-2); Eosinophils Absolute Auto 0 /uL (0-450); Eosinophils Percent Auto 0.4 % (2-4); Hematocrit 33.9 % (36-46); Hemoglobin 11.6 g/dL (12.0-16.0); Lymphocytes Absolute Auto 1300 /uL (1100-4500); Lymphocytes Percent Auto 56.9 % (25-40); Mean Corpuscular HGB Conc 34.2 % (30-36); Mean Corpuscular Hemoglobin 37.3 PG (26-34); Monocytes Absolute Auto 400 /uL (0-900); Monocytes Percent Auto 19.2 % (3-14); Neutrophils Absolute Auto 500 /uL (1500-7000); Neutrophils Percent Auto 21.9 % (50-75); Platelet Count 213 X10^3/uL (150-400); Red Blood Cell Count 3.11 X10^6/uL (4.0-5.2); Red Cell Distribution Width 16.4 % (11.6-14.8); White Blood Cell Count 2.3 X10^3/uL (4.5-11.0)
[2023-02-20 10:44] LABS: Alanine Aminotransferase 24 IU/L (<35); Albumin 4.6 g/dL (3.5-5.0); Albumin Globulin Ratio 1.6 (1.0-2.8); Alkaline Phosphatase 93 U/L (38-126); Aspartate Aminotransferase 36 IU/L (14-36); BUN Creatinine Ratio 26.2 (6-22); Bilirubin Total 0.5 mg/dL (0.2-1.3); Blood Urea Nitrogen 16 mg/dL (7-17); Calcium 9.9 mg/dL (8.4-10.2); Carbon Dioxide 28 mmol/L (22-32); Chloride 98 mmol/L (98-107); Estimated Glomerular Filt Rate > 60 mL/min (>60); Globulin 2.8 g/dL (1.7-4.1); Glucose 99 mg/dL (80-110); HEMOLYSIS < 15 (0-50); Potassium 4.6 mmol/L (3.4-5.1); Sodium 135 mmol/L (137-145); Total Protein 7.4 g/dL (6.3-8.2)
[2023-02-20 11:12] LABS: Carcinoembryonic Antigen 5.7 ng/mL (0.1-3.0)
[2023-02-21 11:54] LABS: CA 15-3 45.4 U/mL (0.0-25.0)
== END ==
LOC: LAB 08:45
PROVIDERS: PCP Family Medicine; Referring Provider Student in an Organized Health Care Education/Training Program; Visit Provider Student in an Organized Health Care Education/Training Program
DX: C50.412 Malignant neoplasm of upper-outer quadrant of left female breast (principal); Z17.0 Estrogen receptor positive status [ER+]
CPT/HCPCS: 36415; 80053; 82378; 85025; 86300

== ENCOUNTER → 2023-02-27 08:50 | Outpatient (CLI) | payer MEDICARE, SELFPAY ==
[2023-02-27 09:24] LABS: Add Manual Diff / Slide Review NO; Basophils Absolute Auto 100 /uL (0-100); Basophils Percent Auto 2.2 % (0-2); Eosinophils Absolute Auto 0 /uL (0-450); Eosinophils Percent Auto 0.8 % (2-4); Hematocrit 36.8 % (36-46); Hemoglobin 12.4 g/dL (12.0-16.0); Lymphocytes Absolute Auto 1900 /uL (1100-4500); Lymphocytes Percent Auto 53.9 % (25-40); Mean Corpuscular HGB Conc 33.6 % (30-36); Mean Corpuscular Hemoglobin 36.1 PG (26-34); Mean Corpuscular Volume 107.4 fL (80-100); Monocytes Absolute Auto 600 /uL (0-900); Monocytes Percent Auto 18.4 % (3-14); Neutrophils Absolute Auto 900 /uL (1500-7000); Neutrophils Percent Auto 24.7 % (50-75); Platelet Count 285 X10^3/uL (150-400); Red Blood Cell Count 3.43 X10^6/uL (4.0-5.2); Red Cell Distribution Width 15.9 % (11.6-14.8); White Blood Cell Count 3.5 X10^3/uL (4.5-11.0)
== END ==
PROVIDERS: PCP Family Medicine; Referring Provider Student in an Organized Health Care Education/Training Program; Visit Provider Student in an Organized Health Care Education/Training Program
DX: D70.2 Other drug-induced agranulocytosis (principal)
CPT/HCPCS: 36415; 85025

== ENCOUNTER → 2023-03-06 13:20 | Outpatient (CLI) | payer MEDICARE, SELFPAY ==
[2023-03-06 14:06] LABS: Add Manual Diff / Slide Review NO; Basophils Absolute Auto 100 /uL (0-100); Basophils Percent Auto 1.4 % (0-2); Eosinophils Absolute Auto 0 /uL (0-450); Eosinophils Percent Auto 1.2 % (2-4); Hemoglobin 12.3 g/dL (12.0-16.0); Lymphocytes Absolute Auto 2100 /uL (1100-4500); Lymphocytes Percent Auto 53.7 % (25-40); Mean Corpuscular HGB Conc 33.1 % (30-36); Mean Corpuscular Volume 108.5 fL (80-100); Monocytes Absolute Auto 400 /uL (0-900); Monocytes Percent Auto 10.3 % (3-14); Neutrophils Absolute Auto 1300 /uL (1500-7000); Neutrophils Percent Auto 33.4 % (50-75); Platelet Count 347 X10^3/uL (150-400); Red Blood Cell Count 3.41 X10^6/uL (4.0-5.2); Red Cell Distribution Width 15.6 % (11.6-14.8); White Blood Cell Count 3.9 X10^3/uL (4.5-11.0)
[2023-03-06 15:22] LABS: Alanine Aminotransferase 30 IU/L (<35); Albumin 4.6 g/dL (3.5-5.0); Albumin Globulin Ratio 1.5 (1.0-2.8); Alkaline Phosphatase 63 U/L (38-126); Aspartate Aminotransferase 42 IU/L (14-36); BUN Creatinine Ratio 18.9 (6-22); Bilirubin Total 0.4 mg/dL (0.2-1.3); Blood Urea Nitrogen 14 mg/dL (7-17); Calcium 8.8 mg/dL (8.4-10.2); Carbon Dioxide 25 mmol/L (22-32); Chloride 106 mmol/L (98-107); Estimated Glomerular Filt Rate > 60 mL/min (>60); Glucose 80 mg/dL (80-110); HEMOLYSIS < 15 (0-50); Potassium 4.3 mmol/L (3.4-5.1); Sodium 143 mmol/L (137-145); Total Protein 7.6 g/dL (6.3-8.2)
[2023-03-06 15:50] LABS: Carcinoembryonic Antigen 28.8 ng/mL (0.1-3.0)
[2023-03-07 06:37] LABS: CA 15-3 44.1 U/mL (0.0-25.0)
== END ==
LOC: LAB 13:23
PROVIDERS: PCP Family Medicine; Referring Provider Student in an Organized Health Care Education/Training Program; Visit Provider Student in an Organized Health Care Education/Training Program
DX: C50.412 Malignant neoplasm of upper-outer quadrant of left female breast (principal); Z17.0 Estrogen receptor positive status [ER+]
CPT/HCPCS: 36415; 80053; 82378; 85025; 86300

== ENCOUNTER → 2023-04-02 09:24 | Outpatient (CLI) | payer MEDICARE, SELFPAY ==
[2023-04-02 13:30] LABS: Add Manual Diff / Slide Review NO; Basophils Absolute Auto 100 /uL (0-100); Basophils Percent Auto 0.8 % (0-2); Eosinophils Absolute Auto 0 /uL (0-450); Eosinophils Percent Auto 0.3 % (2-4); Hematocrit 33.1 % (36-46); Hemoglobin 11.3 g/dL (12.0-16.0); Lymphocytes Absolute Auto 2000 /uL (1100-4500); Lymphocytes Percent Auto 26.1 % (25-40); Mean Corpuscular HGB Conc 34.2 % (30-36); Mean Corpuscular Hemoglobin 36.6 PG (26-34); Monocytes Absolute Auto 1200 /uL (0-900); Monocytes Percent Auto 15.5 % (3-14); Neutrophils Absolute Auto 4400 /uL (1500-7000); Neutrophils Percent Auto 57.3 % (50-75); Platelet Count 119 X10^3/uL (150-400); Red Cell Distribution Width 16.1 % (11.6-14.8); White Blood Cell Count 7.7 X10^3/uL (4.5-11.0)
[2023-04-02 13:43] LABS: Alanine Aminotransferase 22 IU/L (<35); Albumin 4.6 g/dL (3.5-5.0); Albumin Globulin Ratio 1.5 (1.0-2.8); Alkaline Phosphatase 78 U/L (38-126); Aspartate Aminotransferase 30 IU/L (14-36); BUN Creatinine Ratio 40.9 (6-22); Bilirubin Total 0.5 mg/dL (0.2-1.3); Blood Urea Nitrogen 27 mg/dL (7-17); Calcium 9.2 mg/dL (8.4-10.2); Carbon Dioxide 26 mmol/L (22-32); Chloride 102 mmol/L (98-107); Estimated Glomerular Filt Rate > 60 mL/min (>60); Glucose 105 mg/dL (80-110); HEMOLYSIS < 15 (0-50); Potassium 4.3 mmol/L (3.4-5.1); Sodium 138 mmol/L (137-145); Total Protein 7.6 g/dL (6.3-8.2)
[2023-04-02 14:13] LABS: Carcinoembryonic Antigen 15.6 ng/mL (0.1-3.0)
[2023-04-02 20:48] LABS: Folate > 20.0 ng/mL (2.76-20.0); Vitamin B12 > 1000 pg/mL (239-931)
[2023-04-03 08:35] LABS: CA 15-3 38.9 U/mL (0.0-25.0)
== END ==
PROVIDERS: PCP Family Medicine; Referring Provider Student in an Organized Health Care Education/Training Program; Visit Provider Student in an Organized Health Care Education/Training Program
DX: C50.412 Malignant neoplasm of upper-outer quadrant of left female breast (principal); Z17.0 Estrogen receptor positive status [ER+]; Z79.899 Other long term (current) drug therapy; R79.89 Other specified abnormal findings of blood chemistry
CPT/HCPCS: 36415; 80053; 82378; 82607; 82746; 85025; 86300

== ENCOUNTER → 2023-04-29 08:10 | Outpatient (CLI) | payer MEDICARE, SELFPAY ==
--- NOTE | 2023-04-29 08:20 | DI.ECHO.S_ITS ---
[facility]---------+ [facility] +---------+ : : [address] : : : : [id number] : : : : Phone: [phone]+ Echocardiogram Report + + :Name: ESTHELA BUSBY Study Date: 04/29/2023 Height: 63 in : :[facility] ReadingLocation: Weight: 150 lb : : Gender: Female BSA: 1.7 m2 : :: 1950 Age: 73 yrs BP: 176/100 mmHg: :Reason For Study: FATIGUE, MURMUR, AV BLOCK : :Ordering Physician: ELEUTERIO, : :ANIL Performed By: Genesis Kraft : :Referring: ANIL MCCLELLAN : + + Interpretation Summary The ejection fraction is estimated to be 60-65%. There is mild mitral regurgitation. There is trace aortic regurgitation. There is mild tricuspid regurgitation. The right ventricular systolic pressure is estimated to be at least 40 mmHg based on an estimated right atrial pressure of 3 mm Hg. Procedure: A two-dimensional transthoracic echocardiogram with color flow and Doppler was performed. The study quality was technically adequate. There is no prior echocardiogram noted for this patient. The heart rate ranged between 79-89 bpm during the study. Left Ventricle: The left ventricle is normal in size and wall thickness. The ejection fraction is estimated to be 60-65%. Left ventricular wall motion is normal. Diastolic parameters suggest a relaxation abnormality of the left ventricle, consistent with probable normal filling pressures. Right Ventricle: The right ventricle is normal in size and function. Atria: The left atrial size is normal. Right atrial size is normal. There is no Doppler evidence for an interatrial shunt. Mitral Valve: The mitral valve leaflets are slightly calcified. There is mild mitral regurgitation. Aortic Valve: The aortic valve is trileaflet. The aortic valve opens well. There is no aortic valve stenosis. There is trace aortic regurgitation. Tricuspid Valve: The tricuspid valve is normal in structure and function. There is mild tricuspid regurgitation. The right ventricular systolic pressure is estimated to be at least 40 mmHg based on an estimated right atrial pressure of 3 mm Hg. Pulmonic Valve: The pulmonic valve leaflets are thin and pliable; valve motion is normal. There is trace pulmonic regurgitation. Great Vessels: The aortic root is normal size. The dimensions of the ascending aorta are normal. The IVC is of normal diameter and collapses greater than 50% with a sniff. This suggests a low right atrial pressure of 3 mm Hg. Pericardium/ Pleura There is no pericardial effusion. There is no pleural effusion. MMode/2D Measurements & Calculations LVIDd: 4.7 cm LVOT diam: 2.0 cm LVIDs: 3.5 cm Ao root diam: 3.9 cm FS: 26.6 % asc Aorta Diam: 3.8 cm EPSS: 0.76 cm Ao Arch Diam (Prox Trans): 2.8 cm IVSd: 0.83 cm LVPWd: 0.66 cm LV alvarado. diameter/BSA (cm/m^2): 2.8 LV sys. diameter/BSA (cm/m^2): 2.0 LA A2 area: 20.6 cm2 RA long axis: 5.0 cm LA A4 area: 12.8 cm2 RA area: 12.5 cm2 LA length (vol): 4.6 cm RA vol: 26.3 ml LA vol: 48.6 ml RA : 15.4 ml/m2 LA vol index: 28.4 ml/m2 IVC diam: 2.0 cm RVD1 (basal): 3.6 cm TAPSE: 1.9 cm Doppler Measurements & Calculations Ao V2 max: 181.9 cm/sec LVOT Max [place]: 128.0 cm/sec Ao V2 mean: 126.4 cm/sec LV V1 max P.6 mmHg Ao max P.2 mmHg LV V1 VTI: 24.3 cm Ao mean P.2 mmHg ABHISHEK(I,D): 2.0 cm2 Ao V2 VTI: 37.5 cm ABHISHEK(V,D): 2.2 cm2 sev ratio: 0.65 ABHISHEK indexed to BSA (cm^2/m^2): 1.2 MV E max [place]: 74.1 cm/sec TR max [place]: 302.1 cm/sec MV A max [place]: 108.4 cm/sec TR max P.5 mmHg MV E/A: 0.68 PA V2 max: 96.8 cm/sec Med Peak E' [place]: 11.0 cm/sec PA V2 mean: 73.2 cm/sec E/E' med: 6.7 PA mean P.3 mmHg Lat Peak E' [place]: 8.9 cm/sec PA pr(Accel): 46.5 mmHg E/E' lat: 8.3 E/e' average: 7.5 MV dec time: 0.30 sec SV(LVOT): 76.5 ml Reading Physician:12:32 PM
== END ==
LOC: ECHO 08:11
PROVIDERS: PCP Family Medicine; Referring Provider Family Medicine; Visit Provider Family Medicine
DX: I08.1 Rheumatic disorders of both mitral and tricuspid valves (principal); C50.412 Malignant neoplasm of upper-outer quadrant of left female breast; Z17.0 Estrogen receptor positive status [ER+]; E07.9 Disorder of thyroid, unspecified; R03.0 Elevated blood-pressure reading, without diagnosis of hypertension; R01.1 Cardiac murmur, unspecified
CPT/HCPCS: 36415; 80053; 82378; 85007; 85025; 86300; 93306

== ENCOUNTER → 2023-04-29 08:51 | Outpatient (CLI) | payer MEDICARE, SELFPAY ==
[2023-04-29 09:40] LABS: Hematocrit 32.5 % (36-46); Hemoglobin 11.1 g/dL (12.0-16.0); Mean Corpuscular HGB Conc 34.2 % (30-36); Mean Corpuscular Volume 107.9 fL (80-100); Platelet Count 152 X10^3/uL (150-400); Red Blood Cell Count 3.01 X10^6/uL (4.0-5.2); Red Cell Distribution Width 17.1 % (11.6-14.8); White Blood Cell Count 8.4 X10^3/uL (4.5-11.0)
[2023-04-29 09:41] LABS: Add Manual Diff / Slide Review YES
[2023-04-29 10:09] LABS: Alanine Aminotransferase 20 IU/L (<35); Albumin 4.3 g/dL (3.5-5.0); Albumin Globulin Ratio 1.5 (1.0-2.8); Alkaline Phosphatase 91 U/L (38-126); Aspartate Aminotransferase 30 IU/L (14-36); BUN Creatinine Ratio 23.3 (6-22); Bilirubin Total 0.5 mg/dL (0.2-1.3); Blood Urea Nitrogen 17 mg/dL (7-17); Calcium 9.2 mg/dL (8.4-10.2); Carbon Dioxide 29 mmol/L (22-32); Chloride 105 mmol/L (98-107); Estimated Glomerular Filt Rate > 60 mL/min (>60); Globulin 2.9 g/dL (1.7-4.1); Glucose 95 mg/dL (80-110); HEMOLYSIS < 15 (0-50); Potassium 4.7 mmol/L (3.4-5.1); Sodium 139 mmol/L (137-145); Total Protein 7.2 g/dL (6.3-8.2)
[2023-04-29 10:18] LABS: Macrocytosis 1+; Neutrophils Absolute Manual 4032 /uL (3000-5900); Total Cells Counted 100
[2023-04-29 10:19] LABS: Anisocytosis 1+
[2023-04-29 10:29] LABS: Carcinoembryonic Antigen 13.5 ng/mL (0.1-3.0)
[2023-05-01 00:11] LABS: CA 15-3 41.2 U/mL (0.0-25.0)
== END ==
LOC: LAB 08:52
PROVIDERS: PCP Family Medicine; Referring Provider Student in an Organized Health Care Education/Training Program; Visit Provider Student in an Organized Health Care Education/Training Program
DX: C50.412 Malignant neoplasm of upper-outer quadrant of left female breast (principal); Z17.0 Estrogen receptor positive status [ER+]
CPT/HCPCS: 36415; 80053; 82378; 85007; 85025; 86300

== ENCOUNTER → 2023-05-27 14:44 | Outpatient (CLI) | payer MEDICARE, SELFPAY ==
[2023-05-27 15:40] LABS: Hematocrit 32.2 % (36-46); Mean Corpuscular HGB Conc 34.2 % (30-36); Mean Corpuscular Hemoglobin 37.5 PG (26-34); Mean Corpuscular Volume 109.7 fL (80-100); Platelet Count 167 X10^3/uL (150-400); Red Blood Cell Count 2.94 X10^6/uL (4.0-5.2); Red Cell Distribution Width 17.1 % (11.6-14.8); White Blood Cell Count 10.4 X10^3/uL (4.5-11.0)
[2023-05-27 15:41] LABS: Add Manual Diff / Slide Review YES
[2023-05-27 16:01] LABS: Alanine Aminotransferase 21 IU/L (<35); Albumin 4.9 g/dL (3.5-5.0); Albumin Globulin Ratio 1.9 (1.0-2.8); Alkaline Phosphatase 88 U/L (38-126); Aspartate Aminotransferase 34 IU/L (14-36); BUN Creatinine Ratio 26.1 (6-22); Bilirubin Total 0.6 mg/dL (0.2-1.3); Blood Urea Nitrogen 18 mg/dL (7-17); Calcium 9.8 mg/dL (8.4-10.2); Carbon Dioxide 26 mmol/L (22-32); Chloride 102 mmol/L (98-107); Estimated Glomerular Filt Rate > 60 mL/min (>60); Globulin 2.6 g/dL (1.7-4.1); Glucose 96 mg/dL (80-110); HEMOLYSIS < 15 (0-50); Potassium 4.4 mmol/L (3.4-5.1); Sodium 136 mmol/L (137-145); Total Protein 7.5 g/dL (6.3-8.2)
[2023-05-27 16:34] LABS: Carcinoembryonic Antigen 16.1 ng/mL (0.1-3.0)
[2023-05-27 22:01] LABS: Neutrophils Absolute Manual 6656 /uL (3000-5900); Nucleated Red Blood Cells 2 #/Diff; Platelet Estimate Adequate on smear; RBC Morphology Normal Morphology; Total Cells Counted 100
[2023-05-27 22:02] LABS: Macrocytosis 1+; Toxic Granulation Present
[2023-05-28 10:50] LABS: CA 15-3 34.8 U/mL (0.0-25.0)
== END ==
PROVIDERS: PCP Family Medicine; Referring Provider Internal Medicine Medical Oncology; Visit Provider Internal Medicine Medical Oncology
DX: C50.412 Malignant neoplasm of upper-outer quadrant of left female breast (principal); Z17.0 Estrogen receptor positive status [ER+]
CPT/HCPCS: 36415; 80053; 82378; 85007; 85025; 86300

== ENCOUNTER → 2023-06-24 15:26 | Outpatient (CLI) | payer MEDICARE, SELFPAY ==
[2023-06-24 16:52] LABS: Hematocrit 30.1 % (36-46); Hemoglobin 10.4 g/dL (12.0-16.0); Mean Corpuscular HGB Conc 34.6 % (30-36); Mean Corpuscular Hemoglobin 37.8 PG (26-34); Mean Corpuscular Volume 109.2 fL (80-100); Platelet Count 336 X10^3/uL (150-400); Red Blood Cell Count 2.76 X10^6/uL (4.0-5.2); Red Cell Distribution Width 14.8 % (11.6-14.8); White Blood Cell Count 12.9 X10^3/uL (4.5-11.0)
[2023-06-24 16:58] LABS: Add Manual Diff / Slide Review YES
[2023-06-24 17:13] LABS: Neutrophils Absolute Manual 7482 /uL (3000-5900); RBC Morphology Normal Morphology; Total Cells Counted 100
[2023-06-24 20:30] LABS: Alanine Aminotransferase 17 IU/L (<35); Albumin 4.5 g/dL (3.5-5.0); Albumin Globulin Ratio 1.5 (1.0-2.8); Alkaline Phosphatase 118 U/L (38-126); Aspartate Aminotransferase 39 IU/L (14-36); BUN Creatinine Ratio 31.7 (6-22); Bilirubin Total 0.4 mg/dL (0.2-1.3); Blood Urea Nitrogen 20 mg/dL (7-17); Calcium 9.3 mg/dL (8.4-10.2); Carbon Dioxide 28 mmol/L (22-32); Chloride 100 mmol/L (98-107); Estimated Glomerular Filt Rate > 60 mL/min (>60); Glucose 100 mg/dL (80-110); HEMOLYSIS < 15 (0-50); Potassium 4.1 mmol/L (3.4-5.1); Sodium 136 mmol/L (137-145); Total Protein 7.5 g/dL (6.3-8.2)
[2023-06-24 20:59] LABS: Carcinoembryonic Antigen 11.7 ng/mL (0.1-3.0)
[2023-06-26 11:41] LABS: CA 15-3 38.1 U/mL (0.0-25.0); Cancer Antigen 27.29 43.9 U/mL (0.0-38.6)
== END ==
PROVIDERS: PCP Family Medicine; Referring Provider Internal Medicine Medical Oncology; Visit Provider Internal Medicine Medical Oncology
DX: C50.919 Malignant neoplasm of unspecified site of unspecified female breast (principal); Z17.0 Estrogen receptor positive status [ER+]
CPT/HCPCS: 36415; 80053; 82378; 85007; 85025; 86300

== ENCOUNTER → 2023-07-01 13:58 | Outpatient (CLI) | payer MEDICARE, SELFPAY ==
[2023-07-01 15:41] LABS: Hematocrit 32.2 % (36-46); Hemoglobin 11.1 g/dL (12.0-16.0); Mean Corpuscular HGB Conc 34.4 % (30-36); Mean Corpuscular Hemoglobin 37.8 PG (26-34); Mean Corpuscular Volume 109.9 fL (80-100); Platelet Count 240 X10^3/uL (150-400); Red Blood Cell Count 2.93 X10^6/uL (4.0-5.2); Red Cell Distribution Width 15.6 % (11.6-14.8); White Blood Cell Count 2.5 X10^3/uL (4.5-11.0)
[2023-07-01 15:42] LABS: Add Manual Diff / Slide Review YES
[2023-07-01 16:11] LABS: Alanine Aminotransferase 19 IU/L (<35); Albumin 4.3 g/dL (3.5-5.0); Albumin Globulin Ratio 1.8 (1.0-2.8); Alkaline Phosphatase 80 U/L (38-126); Aspartate Aminotransferase 33 IU/L (14-36); BUN Creatinine Ratio 12.6 (6-22); Bilirubin Total 0.3 mg/dL (0.2-1.3); Blood Urea Nitrogen 11 mg/dL (7-17); Calcium 9.2 mg/dL (8.4-10.2); Carbon Dioxide 33 mmol/L (22-32); Chloride 102 mmol/L (98-107); Estimated Glomerular Filt Rate > 60 mL/min (>60); Globulin 2.4 g/dL (1.7-4.1); Glucose 100 mg/dL (80-110); HEMOLYSIS < 15 (0-50); Potassium 4.7 mmol/L (3.4-5.1); Sodium 141 mmol/L (137-145); Total Protein 6.7 g/dL (6.3-8.2)
[2023-07-01 16:40] LABS: Carcinoembryonic Antigen 9.4 ng/mL (0.1-3.0)
[2023-07-01 19:28] LABS: Macrocytosis 2+
[2023-07-01 19:58] LABS: Neutrophils Absolute Manual 850 /uL (3000-5900); Platelet Estimate Adequate on smear; Total Cells Counted 100
[2023-07-02 07:36] LABS: CA 15-3 40.6 U/mL (0.0-25.0)
[2023-07-02 08:28] LABS: Cancer Antigen 27.29 39.6 U/mL (0.0-38.6)
== END ==
PROVIDERS: PCP Family Medicine; Referring Provider Internal Medicine Medical Oncology; Visit Provider Internal Medicine Medical Oncology
DX: C50.912 Malignant neoplasm of unspecified site of left female breast (principal); Z17.0 Estrogen receptor positive status [ER+]
CPT/HCPCS: 36415; 80053; 82378; 85007; 85025; 86300

== ENCOUNTER → 2023-07-23 11:30 | Outpatient (CLI) | payer MEDICARE, SELFPAY ==
[2023-07-23 14:56] LABS: Albumin 4.4 g/dL (3.5-5.0); Albumin Globulin Ratio 1.7 (1.0-2.8); Alkaline Phosphatase 94 U/L (38-126); Aspartate Aminotransferase 32 IU/L (14-36); BUN Creatinine Ratio 15.3 (6-22); Bilirubin Total 0.5 mg/dL (0.2-1.3); Blood Urea Nitrogen 11 mg/dL (7-17); Carbon Dioxide 29 mmol/L (22-32); Chloride 104 mmol/L (98-107); Estimated Glomerular Filt Rate > 60 mL/min (>60); Globulin 2.6 g/dL (1.7-4.1); Glucose 84 mg/dL (80-110); HEMOLYSIS < 15 (0-50); Sodium 138 mmol/L (137-145)
[2023-07-23 14:58] LABS: Add Manual Diff / Slide Review YES; Hematocrit 32.1 % (36-46); Hemoglobin 11.2 g/dL (12.0-16.0); Mean Corpuscular HGB Conc 34.9 % (30-36); Mean Corpuscular Hemoglobin 38.9 PG (26-34); Mean Corpuscular Volume 111.5 fL (80-100); Platelet Count 197 X10^3/uL (150-400); Red Blood Cell Count 2.88 X10^6/uL (4.0-5.2); Red Cell Distribution Width 14.8 % (11.6-14.8); White Blood Cell Count 12.3 X10^3/uL (4.5-11.0)
[2023-07-23 14:59] LABS: Alanine Aminotransferase 16 IU/L (<35); Calcium 8.8 mg/dL (8.4-10.2); Potassium 4.4 mmol/L (3.4-5.1)
[2023-07-23 15:10] LABS: Neutrophils Absolute Manual 7380 /uL (3000-5900); Total Cells Counted 100
[2023-07-23 15:11] LABS: Macrocytosis 1+
[2023-07-23 15:28] LABS: Carcinoembryonic Antigen 12.8 ng/mL (0.1-3.0)
[2023-07-24 23:40] LABS: CA 15-3 37.3 U/mL (0.0-25.0)
== END ==
LOC: LAB 11:33
PROVIDERS: PCP Family Medicine; Referring Provider Internal Medicine Medical Oncology; Visit Provider Internal Medicine Medical Oncology
DX: C50.412 Malignant neoplasm of upper-outer quadrant of left female breast (principal); Z17.0 Estrogen receptor positive status [ER+]
CPT/HCPCS: 36415; 80053; 82378; 85007; 85025; 86300

== ENCOUNTER → 2023-08-19 07:36 | Outpatient (CLI) | payer MEDICARE, SELFPAY ==
[2023-08-19 09:04] LABS: Hematocrit 33.7 % (36-46); Hemoglobin 11.5 g/dL (12.0-16.0); Mean Corpuscular HGB Conc 34.2 % (30-36); Mean Corpuscular Hemoglobin 37.8 PG (26-34); Mean Corpuscular Volume 110.6 fL (80-100); Platelet Count 234 X10^3/uL (150-400); Red Blood Cell Count 3.04 X10^6/uL (4.0-5.2); Red Cell Distribution Width 14.1 % (11.6-14.8); White Blood Cell Count 13.2 X10^3/uL (4.5-11.0)
[2023-08-19 09:06] LABS: Add Manual Diff / Slide Review YES
[2023-08-19 09:22] LABS: Alanine Aminotransferase 18 IU/L (<35); Albumin 4.5 g/dL (3.5-5.0); Albumin Globulin Ratio 1.6 (1.0-2.8); Alkaline Phosphatase 117 U/L (38-126); Aspartate Aminotransferase 30 IU/L (14-36); BUN Creatinine Ratio 18.9 (6-22); Bilirubin Total 0.6 mg/dL (0.2-1.3); Blood Urea Nitrogen 14 mg/dL (7-17); Carbon Dioxide 31 mmol/L (22-32); Chloride 96 mmol/L (98-107); Estimated Glomerular Filt Rate > 60 mL/min (>60); Globulin 2.9 g/dL (1.7-4.1); Glucose 137 mg/dL (80-110); HEMOLYSIS < 15 (0-50); Potassium 5.1 mmol/L (3.4-5.1); Sodium 135 mmol/L (137-145); Total Protein 7.4 g/dL (6.3-8.2)
[2023-08-19 09:28] LABS: Neutrophils Absolute Manual 9636 /uL (3000-5900); Total Cells Counted 100
[2023-08-19 09:31] LABS: Dohle Bodies 1+; Macrocytosis 2+; Toxic Granulation Present
[2023-08-19 09:53] LABS: Carcinoembryonic Antigen 10.2 ng/mL (0.1-3.0)
[2023-08-20 07:36] LABS: CA 15-3 36.3 U/mL (0.0-25.0)
== END ==
LOC: LAB 07:38
PROVIDERS: PCP Family Medicine; Referring Provider Internal Medicine Medical Oncology; Visit Provider Internal Medicine Medical Oncology
DX: C50.412 Malignant neoplasm of upper-outer quadrant of left female breast (principal); Z17.0 Estrogen receptor positive status [ER+]
CPT/HCPCS: 36415; 80053; 82378; 85007; 85025; 86300

== ENCOUNTER → 2023-09-17 13:30 | Outpatient (CLI) | payer MEDICARE, SELFPAY ==
[2023-09-17 14:49] LABS: Hematocrit 33.7 % (36-46); Hemoglobin 11.4 g/dL (12.0-16.0); Mean Corpuscular Hemoglobin 37.7 PG (26-34); Mean Corpuscular Volume 110.9 fL (80-100); Platelet Count 243 X10^3/uL (150-400); Red Blood Cell Count 3.04 X10^6/uL (4.0-5.2); Red Cell Distribution Width 14.3 % (11.6-14.8); White Blood Cell Count 12.5 X10^3/uL (4.5-11.0)
[2023-09-17 14:54] LABS: Add Manual Diff / Slide Review YES
[2023-09-17 15:04] LABS: Alanine Aminotransferase 16 IU/L (<35); Albumin 4.4 g/dL (3.5-5.0); Albumin Globulin Ratio 1.9 (1.0-2.8); Alkaline Phosphatase 101 U/L (38-126); Aspartate Aminotransferase 28 IU/L (14-36); BUN Creatinine Ratio 19.7 (6-22); Bilirubin Total 0.4 mg/dL (0.2-1.3); Blood Urea Nitrogen 14 mg/dL (7-17); Calcium 9.2 mg/dL (8.4-10.2); Carbon Dioxide 25 mmol/L (22-32); Chloride 104 mmol/L (98-107); Estimated Glomerular Filt Rate > 60 mL/min (>60); Globulin 2.3 g/dL (1.7-4.1); Glucose 102 mg/dL (80-110); HEMOLYSIS < 15 (0-50); Potassium 4.9 mmol/L (3.4-5.1); Sodium 136 mmol/L (137-145); Total Protein 6.7 g/dL (6.3-8.2)
[2023-09-17 15:31] LABS: Carcinoembryonic Antigen 11.5 ng/mL (0.1-3.0)
[2023-09-17 18:42] LABS: Macrocytosis 3+; Neutrophils Absolute Manual 7625 /uL (3000-5900); Platelet Estimate Adequate on smear; Total Cells Counted 100
[2023-09-18 06:11] LABS: Cancer Antigen 27.29 36.3 U/mL (0.0-38.6)
== END ==
PROVIDERS: PCP Family Medicine; Referring Provider Internal Medicine Medical Oncology; Visit Provider Internal Medicine Medical Oncology
DX: C50.412 Malignant neoplasm of upper-outer quadrant of left female breast (principal); Z17.0 Estrogen receptor positive status [ER+]
CPT/HCPCS: 36415; 80053; 82378; 85007; 85025; 86300

== ENCOUNTER → 2023-09-25 15:44 | Outpatient (CLI) | payer MEDICARE, SELFPAY ==
[2023-09-25 17:23] LABS: Uric Acid 7.2 mg/dL (2.5-6.2)
== END ==
PROVIDERS: PCP Family Medicine; Referring Provider Family Medicine; Visit Provider Family Medicine
DX: M10.9 Gout, unspecified (principal)
CPT/HCPCS: 36415; 84550

== ENCOUNTER → 2023-10-15 10:52 | Outpatient (CLI) | payer MEDICARE, SELFPAY ==
[2023-10-15 14:38] LABS: Hematocrit 34.5 % (36-46); Hemoglobin 11.9 g/dL (12.0-16.0); Mean Corpuscular HGB Conc 34.4 % (30-36); Mean Corpuscular Hemoglobin 38.1 PG (26-34); Mean Corpuscular Volume 110.7 fL (80-100); Platelet Count 245 X10^3/uL (150-400); Red Blood Cell Count 3.12 X10^6/uL (4.0-5.2); Red Cell Distribution Width 15.1 % (11.6-14.8)
[2023-10-15 14:39] LABS: Add Manual Diff / Slide Review YES
[2023-10-15 14:54] LABS: Alanine Aminotransferase 20 IU/L (<35); Albumin 4.7 g/dL (3.5-5.0); Albumin Globulin Ratio 1.7 (1.0-2.8); Alkaline Phosphatase 107 U/L (38-126); Aspartate Aminotransferase 34 IU/L (14-36); BUN Creatinine Ratio 18.8 (6-22); Bilirubin Total 0.5 mg/dL (0.2-1.3); Blood Urea Nitrogen 16 mg/dL (7-17); Calcium 9.5 mg/dL (8.4-10.2); Carbon Dioxide 22 mmol/L (22-32); Chloride 102 mmol/L (98-107); Estimated Glomerular Filt Rate > 60 mL/min (>60); Globulin 2.8 g/dL (1.7-4.1); Glucose 105 mg/dL (80-110); HEMOLYSIS < 15 (0-50); Potassium 4.6 mmol/L (3.4-5.1); Sodium 137 mmol/L (137-145); Total Protein 7.5 g/dL (6.3-8.2)
[2023-10-15 15:16] LABS: Neutrophils Absolute Manual 9000 /uL (3000-5900); Nucleated Red Blood Cells 1 #/Diff; Total Cells Counted 100
[2023-10-15 15:17] LABS: Macrocytosis 2+
[2023-10-15 15:25] LABS: Carcinoembryonic Antigen 12.6 ng/mL (0.1-3.0)
[2023-10-16 10:53] LABS: Uric Acid 8.3 mg/dL (2.5-6.2)
[2023-10-17 06:06] LABS: Cancer Antigen 27.29 58.9 U/mL (0.0-38.6)
== END ==
PROVIDERS: PCP Family Medicine; Referring Provider Internal Medicine Medical Oncology; Visit Provider Internal Medicine Medical Oncology
DX: C50.412 Malignant neoplasm of upper-outer quadrant of left female breast (principal); Z17.0 Estrogen receptor positive status [ER+]; M10.9 Gout, unspecified
CPT/HCPCS: 36415; 80053; 82378; 84550; 85007; 85025; 86300

== ENCOUNTER → 2023-11-12 06:53 | Outpatient (CLI) | payer MEDICARE, SELFPAY ==
[2023-11-12 08:22] LABS: Add Manual Diff / Slide Review NO; Basophils Absolute Auto 100 /uL (0-100); Basophils Percent Auto 0.5 % (0-2); Eosinophils Absolute Auto 0 /uL (0-450); Eosinophils Percent Auto 0.2 % (2-4); Hematocrit 34.2 % (36-46); Hemoglobin 11.5 g/dL (12.0-16.0); Lymphocytes Absolute Auto 1200 /uL (1100-4500); Mean Corpuscular HGB Conc 33.7 % (30-36); Mean Corpuscular Hemoglobin 38.1 PG (26-34); Monocytes Absolute Auto 1400 /uL (0-900); Monocytes Percent Auto 11.7 % (3-14); Neutrophils Absolute Auto 9500 /uL (1500-7000); Neutrophils Percent Auto 77.6 % (50-75); Platelet Count 186 X10^3/uL (150-400); Red Blood Cell Count 3.03 X10^6/uL (4.0-5.2); Red Cell Distribution Width 15.7 % (11.6-14.8); White Blood Cell Count 12.3 X10^3/uL (4.5-11.0)
[2023-11-12 08:36] LABS: Anisocytosis 1+
[2023-11-12 08:44] LABS: Alanine Aminotransferase 15 IU/L (<35); Albumin 4.4 g/dL (3.5-5.0); Albumin Globulin Ratio 1.9 (1.0-2.8); Alkaline Phosphatase 86 U/L (38-126); Aspartate Aminotransferase 26 IU/L (14-36); BUN Creatinine Ratio 14.5 (6-22); Bilirubin Total 0.4 mg/dL (0.2-1.3); Blood Urea Nitrogen 10 mg/dL (7-17); Calcium 9.2 mg/dL (8.4-10.2); Carbon Dioxide 29 mmol/L (22-32); Chloride 101 mmol/L (98-107); Estimated Glomerular Filt Rate > 60 mL/min (>60); Globulin 2.3 g/dL (1.7-4.1); Glucose 101 mg/dL (80-110); HEMOLYSIS < 15 (0-50); Potassium 4.2 mmol/L (3.4-5.1); Sodium 137 mmol/L (137-145); Total Protein 6.7 g/dL (6.3-8.2)
[2023-11-12 08:47] LABS: Cholesterol 159 mg/dL (140-199); HDL Cholesterol 84 mg/dL (40-60); LDL Cholesterol Calculated 57 mg/dL (<100); Triglycerides 92 mg/dL (35-150); Uric Acid 3.8 mg/dL (2.5-6.2)
[2023-11-12 09:13] LABS: TSH w/ Reflex to FT4 1.82 uIU/mL (0.47-4.68)
[2023-11-12 09:14] LABS: Carcinoembryonic Antigen 11.6 ng/mL (0.1-3.0)
[2023-11-13 06:05] LABS: Cancer Antigen 27.29 49.6 U/mL (0.0-38.6)
[2023-11-13 08:36] LABS: CA 15-3 44.5 U/mL (0.0-25.0)
== END ==
PROVIDERS: PCP Family Medicine; Referring Provider Internal Medicine Medical Oncology; Visit Provider Internal Medicine Medical Oncology
DX: Z00.00 Encounter for general adult medical examination without abnormal findings (principal); C50.412 Malignant neoplasm of upper-outer quadrant of left female breast; Z17.0 Estrogen receptor positive status [ER+]; M1A.9XX0 Chronic gout, unspecified, without tophus (tophi); E07.9 Disorder of thyroid, unspecified; R03.0 Elevated blood-pressure reading, without diagnosis of hypertension; F10.21 Alcohol dependence, in remission
CPT/HCPCS: 36415; 80053; 80061; 82378; 84443; 84550; 85025; 86300

== ENCOUNTER → 2023-12-09 10:32 | Outpatient (CLI) | payer MEDICARE, SELFPAY ==
[2023-12-09 11:44] LABS: Hematocrit 32.5 % (36-46); Hemoglobin 11.2 g/dL (12.0-16.0); Mean Corpuscular HGB Conc 34.4 % (30-36); Mean Corpuscular Hemoglobin 38.6 PG (26-34); Mean Corpuscular Volume 112.3 fL (80-100); Platelet Count 105 X10^3/uL (150-400); Red Cell Distribution Width 15.2 % (11.6-14.8); White Blood Cell Count 5.7 X10^3/uL (4.5-11.0)
[2023-12-09 11:59] LABS: Add Manual Diff / Slide Review YES
[2023-12-09 12:20] LABS: Alanine Aminotransferase 16 IU/L (<35); Albumin Globulin Ratio 1.7 (1.0-2.8); Alkaline Phosphatase 89 U/L (38-126); Aspartate Aminotransferase 29 IU/L (14-36); BUN Creatinine Ratio 29.4 (6-22); Bilirubin Total 0.5 mg/dL (0.2-1.3); Blood Urea Nitrogen 20 mg/dL (7-17); Calcium 8.8 mg/dL (8.4-10.2); Carbon Dioxide 25 mmol/L (22-32); Chloride 104 mmol/L (98-107); Estimated Glomerular Filt Rate > 60 mL/min (>60); Globulin 2.4 g/dL (1.7-4.1); Glucose 102 mg/dL (80-110); HEMOLYSIS < 15 (0-50); Potassium 4.1 mmol/L (3.4-5.1); Sodium 139 mmol/L (137-145); Total Protein 6.4 g/dL (6.3-8.2)
[2023-12-09 12:52] LABS: Carcinoembryonic Antigen 11.5 ng/mL (0.1-3.0)
[2023-12-09 13:45] LABS: Neutrophils Absolute Manual 4332 /uL (3000-5900); Platelet Estimate Decreased on smear; RBC Morphology Normal Morphology; Total Cells Counted 100
[2023-12-10 07:10] LABS: CA 15-3 44.7 U/mL (0.0-25.0)
[2023-12-10 08:36] LABS: Cancer Antigen 27.29 54.7 U/mL (0.0-38.6)
== END ==
LOC: LAB 10:35
PROVIDERS: PCP Family Medicine; Referring Provider Internal Medicine Medical Oncology; Visit Provider Internal Medicine Medical Oncology
DX: C50.412 Malignant neoplasm of upper-outer quadrant of left female breast (principal); Z17.0 Estrogen receptor positive status [ER+]; M1A.9XX0 Chronic gout, unspecified, without tophus (tophi)
CPT/HCPCS: 36415; 80053; 82378; 84550; 85007; 85025; 86300

== ENCOUNTER → 2024-01-06 12:30 | Outpatient (CLI) | payer MEDICARE, SELFPAY ==
[2024-01-06 14:06] LABS: Hematocrit 31.9 % (36-46); Hemoglobin 10.9 g/dL (12.0-16.0); Mean Corpuscular HGB Conc 34.1 % (30-36); Mean Corpuscular Hemoglobin 38.4 PG (26-34); Mean Corpuscular Volume 112.8 fL (80-100); Platelet Count 165 X10^3/uL (150-400); Red Blood Cell Count 2.83 X10^6/uL (4.0-5.2); Red Cell Distribution Width 15.6 % (11.6-14.8); White Blood Cell Count 8.1 X10^3/uL (4.5-11.0)
[2024-01-06 14:07] LABS: Add Manual Diff / Slide Review YES
[2024-01-06 14:19] LABS: Alanine Aminotransferase 19 IU/L (<35); Albumin Globulin Ratio 1.7 (1.0-2.8); Alkaline Phosphatase 97 U/L (38-126); Aspartate Aminotransferase 32 IU/L (14-36); BUN Creatinine Ratio 34.8 (6-22); Bilirubin Total 0.4 mg/dL (0.2-1.3); Blood Urea Nitrogen 23 mg/dL (7-17); Calcium 9.1 mg/dL (8.4-10.2); Carbon Dioxide 28 mmol/L (22-32); Chloride 104 mmol/L (98-107); Estimated Glomerular Filt Rate > 60 mL/min (>60); Globulin 2.3 g/dL (1.7-4.1); Glucose 79 mg/dL (80-110); HEMOLYSIS < 15 (0-50); Potassium 3.9 mmol/L (3.4-5.1); Sodium 139 mmol/L (137-145); Total Protein 6.3 g/dL (6.3-8.2)
[2024-01-06 14:20] LABS: Uric Acid 4.3 mg/dL (2.5-6.2)
[2024-01-06 14:29] LABS: Anisocytosis 1+; Macrocytosis 1+; Neutrophils Absolute Manual 6480 /uL (3000-5900); Total Cells Counted 100
[2024-01-06 14:50] LABS: Carcinoembryonic Antigen 11.5 ng/mL (0.1-3.0)
[2024-01-08 04:36] LABS: Cancer Antigen 27.29 57.8 U/mL (0.0-38.6)
[2024-01-08 07:11] LABS: CA 15-3 53.7 U/mL (0.0-25.0)
== END ==
LOC: LAB 12:33
PROVIDERS: PCP Family Medicine; Referring Provider Internal Medicine Medical Oncology; Visit Provider Internal Medicine Medical Oncology
DX: C50.412 Malignant neoplasm of upper-outer quadrant of left female breast (principal); M1A.9XX0 Chronic gout, unspecified, without tophus (tophi); Z17.0 Estrogen receptor positive status [ER+]
CPT/HCPCS: 36415; 80053; 82378; 84550; 85007; 85025; 86300

== ENCOUNTER → 2024-02-03 15:43 | Outpatient (CLI) | payer MEDICARE, SELFPAY ==
[2024-02-03 17:42] LABS: Hemoglobin 11.3 g/dL (12.0-16.0); Mean Corpuscular HGB Conc 34.3 % (30-36); Mean Corpuscular Hemoglobin 39.1 PG (26-34); Mean Corpuscular Volume 113.8 fL (80-100); Platelet Count 173 X10^3/uL (150-400); Red Cell Distribution Width 15.6 % (11.6-14.8); White Blood Cell Count 9.2 X10^3/uL (4.5-11.0)
[2024-02-03 17:46] LABS: Add Manual Diff / Slide Review YES
[2024-02-03 18:06] LABS: Alanine Aminotransferase 22 IU/L (<35); Albumin 4.8 g/dL (3.5-5.0); Albumin Globulin Ratio 1.8 (1.0-2.8); Alkaline Phosphatase 94 U/L (38-126); Aspartate Aminotransferase 42 IU/L (14-36); BUN Creatinine Ratio 20.6 (6-22); Bilirubin Total 0.6 mg/dL (0.2-1.3); Blood Urea Nitrogen 14 mg/dL (7-17); Calcium 8.8 mg/dL (8.4-10.2); Carbon Dioxide 28 mmol/L (22-32); Chloride 101 mmol/L (98-107); Estimated Glomerular Filt Rate > 60 mL/min (>60); Globulin 2.6 g/dL (1.7-4.1); Glucose 88 mg/dL (80-110); HEMOLYSIS < 15 (0-50); Potassium 4.3 mmol/L (3.4-5.1); Sodium 137 mmol/L (137-145); Total Protein 7.4 g/dL (6.3-8.2)
[2024-02-03 18:35] LABS: Carcinoembryonic Antigen 12.5 ng/mL (0.1-3.0); Neutrophils Absolute Manual 7176 /uL (3000-5900); Nucleated Red Blood Cells 1 #/Diff; Total Cells Counted 100
[2024-02-03 18:40] LABS: Macrocytosis 2+; Toxic Granulation Present
== END ==
PROVIDERS: PCP Family Medicine; Referring Provider Student in an Organized Health Care Education/Training Program; Visit Provider Student in an Organized Health Care Education/Training Program
DX: C50.412 Malignant neoplasm of upper-outer quadrant of left female breast (principal); Z17.0 Estrogen receptor positive status [ER+]
CPT/HCPCS: 36415; 80053; 82378; 85007; 85025

== ENCOUNTER → 2024-03-04 15:48 | Outpatient (CLI) | payer MEDICARE, SELFPAY ==
[2024-03-04 16:20] LABS: Hematocrit 32.2 % (36-46); Hemoglobin 11.1 g/dL (12.0-16.0); Mean Corpuscular HGB Conc 34.4 % (30-36); Mean Corpuscular Hemoglobin 39.5 PG (26-34); Mean Corpuscular Volume 114.9 fL (80-100); Platelet Count 135 X10^3/uL (150-400); Red Blood Cell Count 2.81 X10^6/uL (4.0-5.2); Red Cell Distribution Width 14.7 % (11.6-14.8)
[2024-03-04 16:36] LABS: Alanine Aminotransferase 23 IU/L (<35); Albumin 4.4 g/dL (3.5-5.0); Albumin Globulin Ratio 1.6 (1.0-2.8); Alkaline Phosphatase 110 U/L (38-126); Aspartate Aminotransferase 47 IU/L (14-36); BUN Creatinine Ratio 31.4 (6-22); Bilirubin Total 0.3 mg/dL (0.2-1.3); Blood Urea Nitrogen 22 mg/dL (7-17); Calcium 8.8 mg/dL (8.4-10.2); Carbon Dioxide 27 mmol/L (22-32); Chloride 101 mmol/L (98-107); Estimated Glomerular Filt Rate > 60 mL/min (>60); Globulin 2.7 g/dL (1.7-4.1); Glucose 90 mg/dL (80-110); HEMOLYSIS < 15 (0-50); Potassium 3.7 mmol/L (3.4-5.1); Sodium 136 mmol/L (137-145); Total Protein 7.1 g/dL (6.3-8.2)
[2024-03-04 16:38] LABS: Uric Acid 3.6 mg/dL (2.5-6.2)
[2024-03-04 16:41] LABS: Add Manual Diff / Slide Review YES
[2024-03-04 16:52] LABS: Neutrophils Absolute Manual 8100 /uL (3000-5900); Nucleated Red Blood Cells 2 #/Diff; Total Cells Counted 100
[2024-03-04 17:04] LABS: Macrocytosis 1+
[2024-03-04 17:07] LABS: Carcinoembryonic Antigen 11.4 ng/mL (0.1-3.0)
== END ==
PROVIDERS: PCP Family Medicine; Referring Provider Student in an Organized Health Care Education/Training Program; Visit Provider Student in an Organized Health Care Education/Training Program
DX: C50.412 Malignant neoplasm of upper-outer quadrant of left female breast (principal); Z17.0 Estrogen receptor positive status [ER+]; M1A.9XX0 Chronic gout, unspecified, without tophus (tophi)
CPT/HCPCS: 36415; 80053; 82378; 84550; 85007; 85025

== ENCOUNTER → 2024-03-19 14:10 | Outpatient (CLI) | payer MEDICARE, SELFPAY ==
[2024-03-19 14:59] LABS: Add Manual Diff / Slide Review NO; Basophils Absolute Auto 100 /uL (0-100); Basophils Percent Auto 1.9 % (0-2); Eosinophils Absolute Auto 0 /uL (0-450); Eosinophils Percent Auto 0.9 % (2-4); Hematocrit 34.5 % (36-46); Hemoglobin 11.9 g/dL (12.0-16.0); Lymphocytes Absolute Auto 300 /uL (1100-4500); Lymphocytes Percent Auto 12.5 % (25-40); Mean Corpuscular HGB Conc 34.4 % (30-36); Mean Corpuscular Hemoglobin 39.2 PG (26-34); Mean Corpuscular Volume 113.8 fL (80-100); Monocytes Absolute Auto 200 /uL (0-900); Neutrophils Absolute Auto 2100 /uL (1500-7000); Neutrophils Percent Auto 75.7 % (50-75); Platelet Count 297 X10^3/uL (150-400); Red Blood Cell Count 3.03 X10^6/uL (4.0-5.2); Red Cell Distribution Width 14.4 % (11.6-14.8); White Blood Cell Count 2.8 X10^3/uL (4.5-11.0)
[2024-03-19 15:20] LABS: Macrocytosis 1+
[2024-03-19 15:26] LABS: Alanine Aminotransferase 25 IU/L (<35); Albumin 4.5 g/dL (3.5-5.0); Albumin Globulin Ratio 1.8 (1.0-2.8); Alkaline Phosphatase 88 U/L (38-126); Aspartate Aminotransferase 48 IU/L (14-36); BUN Creatinine Ratio 23.3 (6-22); Bilirubin Total 0.5 mg/dL (0.2-1.3); Blood Urea Nitrogen 20 mg/dL (7-17); Calcium 9.1 mg/dL (8.4-10.2); Carbon Dioxide 27 mmol/L (22-32); Chloride 102 mmol/L (98-107); Estimated Glomerular Filt Rate > 60 mL/min (>60); Globulin 2.5 g/dL (1.7-4.1); Glucose 97 mg/dL (80-110); HEMOLYSIS < 15 (0-50); Potassium 4.9 mmol/L (3.4-5.1); Sodium 137 mmol/L (137-145)
[2024-03-19 16:00] LABS: Carcinoembryonic Antigen 11.7 ng/mL (0.1-3.0)
== END ==
LOC: LAB 14:14
PROVIDERS: PCP Family Medicine; Referring Provider Student in an Organized Health Care Education/Training Program; Visit Provider Student in an Organized Health Care Education/Training Program
DX: C50.412 Malignant neoplasm of upper-outer quadrant of left female breast (principal); Z17.0 Estrogen receptor positive status [ER+]
CPT/HCPCS: 36415; 80053; 82378; 85025

== ENCOUNTER → 2024-04-01 14:03 | Outpatient (CLI) | payer MEDICARE, SELFPAY ==
[2024-04-01 15:38] LABS: Alanine Aminotransferase 25 IU/L (<35); Albumin 4.4 g/dL (3.5-5.0); Albumin Globulin Ratio 1.5 (1.0-2.8); Alkaline Phosphatase 119 U/L (38-126); Aspartate Aminotransferase 43 IU/L (14-36); BUN Creatinine Ratio 22.2 (6-22); Bilirubin Total 0.3 mg/dL (0.2-1.3); Blood Urea Nitrogen 16 mg/dL (7-17); Calcium 9.3 mg/dL (8.4-10.2); Carbon Dioxide 27 mmol/L (22-32); Chloride 101 mmol/L (98-107); Estimated Glomerular Filt Rate > 60 mL/min (>60); Globulin 2.9 g/dL (1.7-4.1); Glucose 93 mg/dL (80-110); HEMOLYSIS < 15 (0-50); Potassium 4.6 mmol/L (3.4-5.1); Sodium 137 mmol/L (137-145); Total Protein 7.3 g/dL (6.3-8.2)
[2024-04-01 15:48] LABS: Add Manual Diff / Slide Review YES; Hematocrit 36.5 % (36-46); Hemoglobin 12.6 g/dL (12.0-16.0); Mean Corpuscular HGB Conc 34.5 % (30-36); Mean Corpuscular Hemoglobin 39.4 PG (26-34); Mean Corpuscular Volume 113.9 fL (80-100); Platelet Count 210 X10^3/uL (150-400); Red Cell Distribution Width 14.6 % (11.6-14.8)
[2024-04-01 16:07] LABS: Carcinoembryonic Antigen 12.1 ng/mL (0.1-3.0)
[2024-04-01 16:39] LABS: Macrocytosis 1+; Neutrophils Absolute Manual 6320 /uL (3000-5900); Total Cells Counted 100
== END ==
PROVIDERS: PCP Family Medicine; Referring Provider Student in an Organized Health Care Education/Training Program; Visit Provider Student in an Organized Health Care Education/Training Program
DX: C50.412 Malignant neoplasm of upper-outer quadrant of left female breast (principal); Z17.0 Estrogen receptor positive status [ER+]
CPT/HCPCS: 36415; 80053; 82378; 85007; 85025

== ENCOUNTER → 2024-04-27 14:48 | Outpatient (CLI) | payer MEDICARE, SELFPAY ==
[2024-04-27 15:37] LABS: Add Manual Diff / Slide Review YES; Hematocrit 37.8 % (36-46); Hemoglobin 12.9 g/dL (12.0-16.0); Mean Corpuscular HGB Conc 34.2 % (30-36); Mean Corpuscular Hemoglobin 39.1 PG (26-34); Mean Corpuscular Volume 114.4 fL (80-100); Platelet Count 243 X10^3/uL (150-400); Red Cell Distribution Width 14.3 % (11.6-14.8); White Blood Cell Count 12.4 X10^3/uL (4.5-11.0)
[2024-04-27 15:52] LABS: Neutrophils Absolute Manual 10168 /uL (3000-5900); Total Cells Counted 100
[2024-04-27 15:53] LABS: Alanine Aminotransferase 25 IU/L (<35); Albumin 4.4 g/dL (3.5-5.0); Albumin Globulin Ratio 1.8 (1.0-2.8); Alkaline Phosphatase 162 U/L (38-126); Aspartate Aminotransferase 40 IU/L (14-36); Bilirubin Total 0.5 mg/dL (0.2-1.3); Blood Urea Nitrogen 17 mg/dL (7-17); Calcium 9.1 mg/dL (8.4-10.2); Carbon Dioxide 23 mmol/L (22-32); Chloride 101 mmol/L (98-107); Estimated Glomerular Filt Rate > 60 mL/min (>60); Globulin 2.5 g/dL (1.7-4.1); Glucose 107 mg/dL (80-110); HEMOLYSIS < 15 (0-50); Macrocytosis 2+; Potassium 4.6 mmol/L (3.4-5.1); Sodium 137 mmol/L (137-145); Total Protein 6.9 g/dL (6.3-8.2)
[2024-04-27 16:24] LABS: Carcinoembryonic Antigen 11.3 ng/mL (0.1-3.0)
== END ==
PROVIDERS: PCP Family Medicine; Referring Provider Student in an Organized Health Care Education/Training Program; Visit Provider Student in an Organized Health Care Education/Training Program
DX: C50.412 Malignant neoplasm of upper-outer quadrant of left female breast (principal); Z17.0 Estrogen receptor positive status [ER+]
CPT/HCPCS: 36415; 80053; 82378; 85007; 85025

== ENCOUNTER → 2024-05-26 10:21 | Outpatient (CLI) | payer MEDICARE, SELFPAY ==
[2024-05-26 10:57] LABS: Add Manual Diff / Slide Review NO; Basophils Absolute Auto 100 /uL (0-100); Basophils Percent Auto 0.6 % (0-2); Eosinophils Absolute Auto 0 /uL (0-450); Eosinophils Percent Auto 0.4 % (2-4); Hematocrit 35.8 % (36-46); Hemoglobin 12.2 g/dL (12.0-16.0); Lymphocytes Absolute Auto 600 /uL (1100-4500); Lymphocytes Percent Auto 6.1 % (25-40); Mean Corpuscular HGB Conc 34.1 % (30-36); Mean Corpuscular Hemoglobin 39.3 PG (26-34); Mean Corpuscular Volume 115.2 fL (80-100); Monocytes Absolute Auto 1300 /uL (0-900); Monocytes Percent Auto 13.9 % (3-14); Neutrophils Absolute Auto 7100 /uL (1500-7000); Platelet Count 167 X10^3/uL (150-400); Red Cell Distribution Width 14.5 % (11.6-14.8)
[2024-05-26 11:06] LABS: Anisocytosis 1+
[2024-05-26 11:34] LABS: Alanine Aminotransferase 23 IU/L (<35); Albumin 4.2 g/dL (3.5-5.0); Albumin Globulin Ratio 1.8 (1.0-2.8); Alkaline Phosphatase 147 U/L (38-126); Aspartate Aminotransferase 43 IU/L (14-36); BUN Creatinine Ratio 17.6 (6-22); Bilirubin Total 0.4 mg/dL (0.2-1.3); Blood Urea Nitrogen 12 mg/dL (7-17); Calcium 8.6 mg/dL (8.4-10.2); Carbon Dioxide 26 mmol/L (22-32); Chloride 104 mmol/L (98-107); Estimated Glomerular Filt Rate > 60 mL/min (>60); Globulin 2.4 g/dL (1.7-4.1); Glucose 109 mg/dL (80-110); HEMOLYSIS < 15 (0-50); Potassium 4.5 mmol/L (3.4-5.1); Sodium 139 mmol/L (137-145); Total Protein 6.6 g/dL (6.3-8.2)
[2024-05-26 12:00] LABS: Carcinoembryonic Antigen 11.1 ng/mL (0.1-3.0)
== END ==
PROVIDERS: PCP Family Medicine; Referring Provider Student in an Organized Health Care Education/Training Program; Visit Provider Student in an Organized Health Care Education/Training Program
DX: C50.412 Malignant neoplasm of upper-outer quadrant of left female breast (principal); Z17.0 Estrogen receptor positive status [ER+]
CPT/HCPCS: 36415; 80053; 82378; 85025

== ENCOUNTER → 2024-06-01 09:18 | Outpatient (CLI) | payer MEDICARE, SELFPAY ==
[2024-06-01 16:08] LABS: Add Manual Diff / Slide Review NO; Basophils Absolute Auto 0 /uL (0-100); Basophils Percent Auto 1.2 % (0-2); Eosinophils Absolute Auto 0 /uL (0-450); Eosinophils Percent Auto 0.4 % (2-4); Hemoglobin 12.3 g/dL (12.0-16.0); Lymphocytes Absolute Auto 400 /uL (1100-4500); Mean Corpuscular HGB Conc 34.2 % (30-36); Mean Corpuscular Hemoglobin 39.3 PG (26-34); Monocytes Absolute Auto 500 /uL (0-900); Monocytes Percent Auto 12.8 % (3-14); Neutrophils Absolute Auto 3200 /uL (1500-7000); Neutrophils Percent Auto 75.6 % (50-75); Platelet Count 246 X10^3/uL (150-400); Red Blood Cell Count 3.13 X10^6/uL (4.0-5.2); Red Cell Distribution Width 14.5 % (11.6-14.8); White Blood Cell Count 4.2 X10^3/uL (4.5-11.0)
[2024-06-01 16:23] LABS: Alanine Aminotransferase 25 IU/L (<35); Albumin 4.2 g/dL (3.5-5.0); Albumin Globulin Ratio 1.7 (1.0-2.8); Alkaline Phosphatase 127 U/L (38-126); Aspartate Aminotransferase 45 IU/L (14-36); BUN Creatinine Ratio 28.4 (6-22); Bilirubin Total 0.6 mg/dL (0.2-1.3); Blood Urea Nitrogen 23 mg/dL (7-17); Calcium 9.2 mg/dL (8.4-10.2); Carbon Dioxide 25 mmol/L (22-32); Chloride 99 mmol/L (98-107); Estimated Glomerular Filt Rate > 60 mL/min (>60); Globulin 2.5 g/dL (1.7-4.1); Glucose 90 mg/dL (80-110); HEMOLYSIS < 15 (0-50); Potassium 4.4 mmol/L (3.4-5.1); Sodium 135 mmol/L (137-145); Total Protein 6.7 g/dL (6.3-8.2)
[2024-06-01 16:49] LABS: Macrocytosis 2+
[2024-06-01 16:53] LABS: Carcinoembryonic Antigen 10.9 ng/mL (0.1-3.0)
== END ==
PROVIDERS: PCP Family Medicine; Referring Provider Student in an Organized Health Care Education/Training Program; Visit Provider Student in an Organized Health Care Education/Training Program
DX: C50.412 Malignant neoplasm of upper-outer quadrant of left female breast (principal); Z17.0 Estrogen receptor positive status [ER+]
CPT/HCPCS: 36415; 80053; 82378; 85025

== ENCOUNTER → 2024-06-09 15:40 | Outpatient (CLI) | payer MEDICARE, SELFPAY ==
[2024-06-09 16:26] LABS: Creatine Kinase 47 U/L (30-135); Uric Acid 4.3 mg/dL (2.5-6.2)
[2024-06-09 16:38] LABS: Troponin I < 0.012 ng/mL (0.01-0.034)
[2024-06-09 16:59] LABS: TSH w/ Reflex to FT4 7.91 uIU/mL (0.47-4.68)
[2024-06-09 17:17] LABS: Vitamin B12 Reflex MMA if <400 > 1000 pg/mL (239-931)
[2024-06-09 17:26] LABS: Free T4, Direct Thyroxine 0.99 ng/dL (0.78-2.19)
== END ==
PROVIDERS: PCP Family Medicine; Referring Provider Family Medicine; Visit Provider Family Medicine
DX: E07.9 Disorder of thyroid, unspecified (principal); C50.919 Malignant neoplasm of unspecified site of unspecified female breast; M10.9 Gout, unspecified; C77.3 Secondary and unspecified malignant neoplasm of axilla and upper limb lymph nodes; R71.8 Other abnormality of red blood cells; R03.0 Elevated blood-pressure reading, without diagnosis of hypertension
CPT/HCPCS: 36415; 82550; 82607; 84439; 84443; 84484; 84550

== ENCOUNTER → 2024-06-15 09:22 | Outpatient (CLI) | payer MEDICARE, SELFPAY ==
--- NOTE | 2024-06-15 09:23 | DI.ECHO.S_ITS ---
[place]---------+ [facility] : : [address] : [address] : : [id number] : : Phone: [phone] Echocardiogram Report + + :Name: ESTHELA BUSBY Study Date: 06/15/2024 Height: 62.5 in: :[facility] ReadingLocation: Weight: 145 lb : : Gender: Female BSA: 1.7 m2 : :: 1950 Age: 74 yrs BP: 150/96 mmHg: :Reason For Study: TACHYCARDIA, ON CHEMO : :Ordering Physician: ELEUTERIO : :ANIL Performed By: Genesis Kraft : :Referring: ANIL MCCLELLAN : + + Interpretation Summary The ejection fraction is estimated to be 55-60%. Left ventricular global longitudinal strain average is -16.8%. Diastolic function could not be accurately assessed due to tachycardia. The right ventricle is normal in size and function. There is mild mitral regurgitation. There is mild aortic regurgitation. Pulmonary artery pressures cannot be estimated because of the lack of a measurable TR jet velocity but the IVC suggests a CVP of around 3 mmHg. The ascending aorta is mildly enlarged. No significant change compared to prior study 04/29/2023. Procedure: A two-dimensional transthoracic echocardiogram with color flow and Doppler was performed. The study quality was technically adequate. Comparison is made with the echocardiogram of 04/29/2023. The patient was in sinus tachycardia with heart rates between 90-101 bpm during the exam. Left Ventricle: The left ventricle is normal in size and wall thickness. The ejection fraction is estimated to be 55-60%. Left ventricular global longitudinal strain average is -16.8%. Diastolic function could not be accurately assessed due to tachycardia. Right Ventricle: The right ventricle is normal in size and function. Atria: The left atrial size is normal. Right atrial size is normal. There is no Doppler evidence for an interatrial shunt. Mitral Valve: The mitral valve leaflets are mildly calcified. The mitral valve mean gradient is 1.9 mmHg. There is no mitral valve stenosis. There is mild mitral regurgitation. Aortic Valve: The aortic valve is trileaflet. The aortic valve opens well. There is no aortic valve stenosis. There is mild aortic regurgitation. Tricuspid Valve: The tricuspid valve leaflets are thin and pliable. No tricuspid regurgitation. Pulmonary artery pressures cannot be estimated because of the lack of a measurable TR jet velocity but the IVC suggests a CVP of around 3 mmHg. Pulmonic Valve: The pulmonic valve leaflets are thin and pliable; valve motion is normal. There is no pulmonic valvular regurgitation. Great Vessels: The aortic root is normal size. The ascending aorta is mildly enlarged. The IVC is of normal diameter and collapses greater than 50% with a sniff. This suggests a low right atrial pressure of 3 mm Hg. Pericardium/ Pleura There is no pericardial effusion. There is no pleural effusion. MMode/2D Measurements & Calculations LVIDd: 4.7 cm LVOT diam: 2.1 cm LVIDs: 3.0 cm Ao root diam: 3.9 cm FS: 35.1 % asc Aorta Diam: 3.7 cm IVSd: 0.70 cm Ao Arch Diam (Prox Trans): 2.8 cm LVPWd: 0.69 cm LV alvarado. diameter/BSA (cm/m^2): 2.8 LV sys. diameter/BSA (cm/m^2): 1.8 LA A2 area: 17.3 cm2 RA long axis: 5.1 cm LA A4 area: 11.9 cm2 RA area: 12.7 cm2 LA length (vol): 4.7 cm RA vol: 26.9 ml LA vol: 37.1 ml RA : 16.0 ml/m2 LA vol index: 22.1 ml/m2 IVC diam: 1.4 cm RVD1 (basal): 2.6 cm RVD2 (mid): 2.4 cm TAPSE: 1.4 cm Doppler Measurements & Calculations Ao V2 max: 140.9 cm/sec LVOT Max [place]: 112.3 cm/sec Ao V2 mean: 100.9 cm/sec LV V1 max P.0 mmHg Ao max P.0 mmHg LV V1 VTI: 21.0 cm Ao mean P.5 mmHg ABHISHEK(I,D): 2.9 cm2 Ao V2 VTI: 26.0 cm ABHISHEK(V,D): 2.8 cm2 sev ratio: 0.81 ABHISHEK indexed to BSA (cm^2/m^2): 1.7 AI P1/2t: 349.8 msec AI dec slope: 407.2 cm/sec2 Med Peak E' [place]: 9.6 cm/sec MV V2 mean: 64.6 cm/sec Lat Peak E' [place]: 5.8 cm/sec MV mean P.9 mmHg MVA(VTI): 4.0 cm2 MV V2 VTI: 18.6 cm SV(LVOT): 74.6 ml Reading Physician:12:39 PM
== END ==
PROVIDERS: PCP Family Medicine; Referring Provider Family Medicine; Visit Provider Family Medicine
DX: I77.89 Other specified disorders of arteries and arterioles (principal); I44.0 Atrioventricular block, first degree; R00.0 Tachycardia, unspecified; C50.919 Malignant neoplasm of unspecified site of unspecified female breast; C77.3 Secondary and unspecified malignant neoplasm of axilla and upper limb lymph nodes; I08.0 Rheumatic disorders of both mitral and aortic valves; R71.8 Other abnormality of red blood cells; E07.9 Disorder of thyroid, unspecified; R03.0 Elevated blood-pressure reading, without diagnosis of hypertension
CPT/HCPCS: 93306

== ENCOUNTER → 2024-06-22 08:01 | Outpatient (CLI) | payer MEDICARE, SELFPAY ==
--- NOTE | 2024-07-20 15:31 | PC.NURSE ---
Cardiac Rehab: Dylano uploaded and sent to [facility]. Noted from Milly CARMONA notification. This RN called [facility] and spoke to profile trimmer to inform PCP Dylano has been uploaded and sent.
== END ==
LOC: CAR 08:01
PROVIDERS: PCP Family Medicine; Referring Provider Family Medicine; Visit Provider Family Medicine
DX: R00.2 Palpitations (principal); R00.0 Tachycardia, unspecified; E07.9 Disorder of thyroid, unspecified; R03.0 Elevated blood-pressure reading, without diagnosis of hypertension; C77.3 Secondary and unspecified malignant neoplasm of axilla and upper limb lymph nodes
CPT/HCPCS: 93242

== ENCOUNTER → 2024-08-19 07:00 | Outpatient (CLI) | payer MEDICARE, SELFPAY ==
[2024-08-19 07:44] LABS: Blood Urea Nitrogen 13 mg/dL (7-17); Calcium 9.1 mg/dL (8.4-10.2); Carbon Dioxide 26 mmol/L (22-32); Chloride 105 mmol/L (98-107); Estimated Glomerular Filt Rate > 60 mL/min (>60); Glucose 109 mg/dL (70-99); HEMOLYSIS < 15 (0-50); Potassium 4.8 mmol/L (3.4-5.1); Sodium 139 mmol/L (137-145)
[2024-08-19 07:57] LABS: Glucose 108 mg/dL (70-99)
[2024-08-19 08:32] LABS: TSH w/ Reflex to FT4 0.43 uIU/mL (0.47-4.68)
[2024-08-19 14:09] LABS: Free T4, Direct Thyroxine 1.61 ng/dL (0.78-2.19)
== END ==
PROVIDERS: PCP Family Medicine
DX: E07.9 Disorder of thyroid, unspecified (principal); C50.412 Malignant neoplasm of upper-outer quadrant of left female breast; Z17.0 Estrogen receptor positive status [ER+]
CPT/HCPCS: 36415; 80048; 82947; 84439; 84443

== ENCOUNTER → 2024-12-24 10:59 | Outpatient (CLI) | payer MEDICARE, SELFPAY ==
[2024-12-24 11:39] LABS: Add Manual Diff / Slide Review NO; Hematocrit 35.0 % (36-46); Hemoglobin 12.1 g/dL (12.0-16.0); Lymphocytes Absolute Auto 700 /uL (1100-4500); Mean Corpuscular HGB Conc 34.5 % (30-36); Mean Corpuscular Hemoglobin 36.4 PG (26-34); Mean Corpuscular Volume 105.5 fL (80-100); Platelet Count 251 X10^3/uL (150-400)
[2024-12-24 11:59] LABS: Alanine Aminotransferase 37 IU/L (<35); Albumin 3.6 g/dL (3.5-5.0); Albumin Globulin Ratio 1.7 (1.0-2.8); Alkaline Phosphatase 121 U/L (38-126); Blood Urea Nitrogen 13 mg/dL (7-17); Calcium 8.3 mg/dL (8.4-10.2); Carbon Dioxide 25 mmol/L (22-32); Chloride 103 mmol/L (98-107); Estimated Glomerular Filt Rate > 60 mL/min (>60); Globulin 2.1 g/dL (1.7-4.1); Glucose 124 mg/dL (70-99); HEMOLYSIS < 15 (0-50); Potassium 4.1 mmol/L (3.4-5.1); Sodium 136 mmol/L (137-145); Total Protein 5.7 g/dL (6.3-8.2)
[2024-12-24 12:29] LABS: Carcinoembryonic Antigen 12.8 ng/mL (0.1-3.0)
== END ==
PROVIDERS: PCP Family Medicine; Referring Provider Student in an Organized Health Care Education/Training Program; Visit Provider Student in an Organized Health Care Education/Training Program
DX: C50.412 Malignant neoplasm of upper-outer quadrant of left female breast (principal); Z17.0 Estrogen receptor positive status [ER+]
CPT/HCPCS: 36415; 80053; 82378; 85025

== ENCOUNTER → 2024-12-26 10:52 | Outpatient (CLI) | payer MEDICARE, SELFPAY ==
--- NOTE | 2024-12-26 10:53 | DI.RAD.S_ITS ---
PROCEDURE: XR FINGER RT MIN 2V INDICATIONS: redness, pain to 5th MCP joint area TECHNIQUE: AP hand, 2 views of the 5th finger(s) acquired. COMPARISON: None. FINDINGS: Bones: No fractures or dislocations. No suspicious bony lesions. Mild joint space narrowing of the interphalangeal joint and base of the thumb. Soft tissues: Soft tissue edema of the 5th digit. IMPRESSION: Soft tissue edema of the 5th digit without osseous erosions. Dictated by: David Chong M.D. on 12/26/2024 at 10:11 Approved by: David Chong M.D. on 12/26/2024 at 10:13
[2024-12-26 11:26] LABS: Add Manual Diff / Slide Review NO; Hematocrit 36.2 % (36-46); Hemoglobin 12.4 g/dL (12.0-16.0); Lymphocytes Absolute Auto 800 /uL (1100-4500); Mean Corpuscular HGB Conc 34.3 % (30-36); Mean Corpuscular Hemoglobin 36.4 PG (26-34); Mean Corpuscular Volume 106.1 fL (80-100); Platelet Count 264 X10^3/uL (150-400)
[2024-12-26 11:47] LABS: Uric Acid 4.3 mg/dL (2.5-6.2)
== END ==
PROVIDERS: PCP Family Medicine; Referring Provider Physician Assistant; Visit Provider Physician Assistant
DX: M79.644 Pain in right finger(s) (principal)
CPT/HCPCS: 36415; 73140; 84550; 85025; 85651

== ENCOUNTER 2025-01-09 19:04 | Inpatient (IN) | payer MEDICARE, SELFPAY ==
[2025-01-09] VITALS (15 sets, daily range): BP systolic 78–109; BP diastolic 47–58; PULSE 102–135; RESP 11–27; TEMP 36.7–37.6; O2SAT 84–99; BMI 26.1
--- NOTE | 2025-01-09 19:13 | ED.WEAKNESS ---
HPI - Weakness General Chief complaint: Weakness Stated complaint: Generalized weakness Time Seen by Provider: 01/09/25 19:12 History of Present Illness HPI Narrative: 75-year-old female with a past medical history of metastatic/recurrent breast cancer, alcoholism in remission for 4 years is followed at [facility]. Patient is metastatic disease has progressed nerve brought into the ED via EMS from home for evaluation of generalized weakness, she states that she had a treatment for her recurrent/metastatic left breast cancer 14 days ago, she states that she is supposed to see her oncologist on Saturday. 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 He denies any symptoms such as headache visual disturbance chest pain shortness breath fever chills nausea vomiting abdominal pain or any other GI/ symptoms at this time. She states that she just feels generalized weak. On my exam no focal deficits NIH of 0. According to medics patient was slightly hypotensive prior to arrival receive a proximally 100 cc of fluids. Related Data Home Medications ?Medication ?Instructions ?Recorded ?Confirmed acetaminophen 325 mg capsule 325 mg PO QID PRN Pain (Scale 06/18/22 12/26/24 (Tylenol) Score 4-6) zoledronic acid 4 mg/5 mL 4 mg IV .q3 mos 05/13/23 12/26/24 intravenous solution alprazolam 1 mg tablet mg PO 09/20/23 12/26/24 calcium carb 1,000 mg-mag hydrox tab PO 09/25/23 12/26/24 200 mg-simeth 40 mg chewable tablet capecitabine 500 mg tablet mg PO 12/26/24 12/26/24 lidocaine-prilocaine 2.5 %-2.5 % topical 12/26/24 12/26/24 topical cream lorazepam 0.5 mg tablet mg PO 12/26/24 12/26/24 metronidazole 0.75 % topical gel topical BID 12/26/24 12/26/24 olanzapine 5 mg tablet 5 mg PO ONCE PM 12/26/24 12/26/24 ondansetron 8 mg disintegrating 8 mg PO Q8H PRN nausea/vomiting 12/26/24 12/26/24 tablet prochlorperazine maleate 10 mg 10 mg PO Q6H PRN nausea/vomiting 12/26/24 12/26/24 tablet Previous Rx's ?Medication ?Instructions ?Recorded levothyroxine 125 mcg tablet 62.5 mcg (1/2 x 125 mcg) PO DAILY 11/24/24 #45 tabs allopurinol 100 mg tablet 100 mg PO DAILY #90 tabs 12/24/24 Allergies Allergy/AdvReac Type Severity Reaction Status Date / Time No Known Drug Allergies Allergy Verified 01/09/25 19:13 Review of Systems Review of Systems Narrative: General: Positive generalized weakness Denies fever, chills, weight loss HEENT: Denies headache, eye drainage, eye irritation, head trauma, sore throat, voice change Cardiovascular: Denies any chest pain, palpitations, tachycardia Respiratory: Denies any shortness of breath, cough, wheeze, stridor GI/: Denies any abdominal pain, nausea, vomiting, diarrhea, bright red blood per rectum, melanotic stools, urinary frequency, urinary retention, dysuria, hematuria MSK: Denies any joint pain, muscle pains, swelling Skin: Denies any rashes, lesions, discoloration Neuro: Denies any headache, lightheadedness, dizziness, fainting, weakness Psych: Denies SI/HI Patient History Medical History (Updated 01/09/25 @ 22:20 by Navid Silverman DO) History of alcoholism Arthritis Depression Anxiety Hemorrhoids Fibroids Skin cancer Thyroid disease Breast cancer, left (2019) Surgical History (Updated 06/07/22 @ 12:48 by Esther Loaiza MD) Hx of bilateral breast reduction surgery History of lumpectomy of left breast (2019) Social History household members: other alcohol intake: former substance use type: does not use Exam Narrative Exam Narrative: General: Cooperative, well-developed, not in acute distress HEENT: Normocephalic, atraumatic, PERRLA, normal sclera, eyelids normal Neck: Active full range of motion, atraumatic Chest: Normal to inspection, negative crepitus, no overlying erythema ecchymosis Respiratory: Normal respiratory effort, not in acute respiratory distress, clear to auscultation bilaterally negative cough, wheeze, tachypnea, rhonchi, rales Cardiology: Regular rate rhythm negative gallop, murmur, rubs GI/: No tenderness to palpation, soft, non rigid, normal to inspection, exam deferred MSK: Full active range of motion in all 4 extremities, atraumatic, no tenderness to palpation of any bony prominences Skin: Patient with right subclavicular port, No rashes or lesions noted Neuro: Patient is blind at baseline to the right eye, she has no focal deficits NIH of 0 Alert awake oriented x3, moves all 4 extremities spontaneously, cranial nerves intact, able to answer all questions appropriately follows commands appropriately Psych: Cooperative, negative suicidal or homicidal ideations Initial Vital Signs Initial Vital Signs: Vital Signs Temperature 99.7 F H 01/09/25 19:14 Pulse Rate 123 H 01/09/25 19:14 Respiratory Rate 21 01/09/25 19:14 Blood Pressure 109/55 L 01/09/25 19:14 Pulse Oximetry 92 01/09/25 19:14 Oxygen Delivery Method Room Air 01/09/25 19:14 Course Orders Ordered: ED Orders 01/09/25 19:00 Complete Blood Count AUTO DIFF Stat Comprehensive Metabolic Panel Stat Lactate (Lactic Acid) Stat Lipase Stat Magnesium Stat NT-proBNP (BNP-Adult 18+) Stat PTT Partial Thromboplastin Wagner Stat Prothrombin Time INR Stat Troponin & CK Cardiac Panel Stat 01/09/25 19:15 XR chest 1V Stat EKG-12 Lead Stat 01/09/25 19:16 CT head/brain wo con Stat 01/09/25 19:30 Blood Culture Stat 01/09/25 19:39 Respiratory Panel (Film Array) Stat 01/09/25 20:10 CT angio chest PE protocol Stat 01/09/25 20:11 CT abdomen pelvis w con Stat 01/09/25 20:53 EKG-12 Lead Stat 01/09/25 20:54 EKG-12 Lead Stat 01/09/25 22:18 GI Panel (Film Array) Stat Discontinued Medications Sodium Chloride (Normal Saline 0.9%) 1,000 mls @ 1,000 mls/hr IV BOLUS ONE Stop: 01/09/25 20:18 Last Infusion: 01/09/25 20:32 Dose: Infused Documented By: Admin: 01/09/25 19:30 Dose: 1,000 mls/hr Documented By: DARIEL Vancomycin HCl/Dextrose (Vancomycin) 1,500 mg in 300 mls @ 200 mls/hr IV NOW ONE Stop: 01/09/25 21:37 Last Admin: 01/09/25 20:52 Dose: 200 mls/hr Documented By: DARIEL Piperacillin Sod/Tazobactam (Sod 4.5 gm/ Sodium Chloride) 100 mls @ 200 mls/hr IV STAT ONE Stop: 01/09/25 20:09 Last Infusion: 01/09/25 20:59 Dose: Infused Documented By: Admin: 01/09/25 20:28 Dose: 200 mls/hr Documented By: DARIEL Potassium Chloride (Potassium Chloride 20 Meq Tab) 40 meq PO NOW ONE Stop: 01/09/25 20:20 Last Admin: 01/09/25 20:51 Dose: 40 meq Documented By: ELIAS Vital Signs Vital signs: Vital Signs - 8 hr 01/09/25 19:14 01/09/25 20:58 Temperature 99.7 F H Pulse Rate 123 H 130 H Respiratory Rate 21 18 Blood Pressure 109/55 L 102/52 L Pulse Oximetry 92 98 Oxygen Delivery Method Room Air Room Air MDM - Weakness Lab Data 01/09/25 19:00 01/09/25 19:00 Labs: Lab Results 01/09/25 01/09/25 01/09/25 Range/Units 19:00 19:00 19:39 WBC 2.8 L (4.5-11.0) X10^3/uL RBC 3.65 L (4.0-5.2) X10^6/uL Hgb 13.2 (12.0-16.0) g/dL Hct 38.6 (36-46) % MCV 105.9 H (80-100) fL MCH 36.1 H (26-34) PG MCHC 34.1 (30-36) % RDW 17.2 H (11.6-14.8) % Plt Count 219 (150-400) X10^3/uL Neut % (Auto) 71.4 (50-75) % Lymph % (Auto) 9.7 L (25-40) % [place] % (Auto) 17.1 H (3-14) % Eos % (Auto) 1.3 L (2-4) % Baso % (Auto) 0.5 (0-2) % Neut # (Auto) 2000 (1909-0503) /uL Lymph # (Auto) 300 L (5363-3492) /uL [place] # (Auto) 500 (0-900) /uL Eos # (Auto) 0 (0-450) /uL Baso # (Auto) 0 (0-100) /uL PT 28.0 H (9.4-12.5) SECONDS INR 2.5 H (0.9-1.3) APTT 29 (25.1-36.5) SECONDS Sodium 130 L (137-145) mmol/L Potassium 3.3 L (3.4-5.1) mmol/L Chloride 95 L (98-107) mmol/L Carbon Dioxide 28 (22-32) mmol/L BUN 17 (7-17) mg/dL Creatinine 0.58 (0.52-1.04) mg/dL Estimated GFR > 60 (>60) mL/min BUN/Creatinine Ratio 29.3 H (6-22) Glucose 151 H (70-99) mg/dL Lactate 2.0 (0.7-2.1) mmol/L Calcium 7.5 L (8.4-10.2) mg/dL Magnesium 1.9 (1.6-2.3) mg/dL Total Bilirubin 1.3 (0.2-1.3) mg/dL AST 54 H (14-36) IU/L ALT 24 (<35) IU/L Alkaline Phosphatase 111 (38-126) U/L Total Creatine Kinase Cancelled 131 Troponin I < 0.012 (0.01-0.034) ng/mL NT-Pro-B Natriuret Pep 1150 H (<450) pg/mL Total Protein 5.6 L (6.3-8.2) g/dL Albumin 2.9 L (3.5-5.0) g/dL Globulin 2.7 (1.7-4.1) g/dL Albumin/Globulin Ratio 1.1 (1.0-2.8) Lipase 67 (23-300) U/L Chlamy pneumoniae PCR Not detected (Not Detect) Adenovirus (PCR) Not detected (Not Detect) B. pertussis DNA (PCR) Not detected (Not Detect) B.parapertussis DNA PCR Not detected (Not Detecte) Coronavirus OC43 (PCR) Not detected (Not Detect) Coronavirus HKU1 (PCR) Not detected (Not Detect) Coronavirus 229E (PCR) Not detected (Not Detect) SARS-CoV-2 (PCR) Not detected (Not Detecte) Coronavirus NL63 (PCR) Not detected (Not Detect) Human Metapneumovir PCR Not detected (Not Detect) Influenza Type A (PCR) Not detected (Not Detect) Influenza Type B (PCR) Not detected (Not Detect) M. pneumoniae (PCR) Not detected (Not Detect) Parainfluenza 1 (PCR) Not detected (Not Detect) Parainfluenza 2 (PCR) Not detected (Not Detect) Parainfluenza 3 (PCR) Not detected (Not Detect) Parainfluenza 4 (PCR) Not detected (Not Detect) RSV (PCR) Not detected (Not Detect) Entero/Rhino (PCR) Not detected (Not Detect) ECG Data Interpretation: EKG interpreted ED physician, sinus tachycardia 132 beats per minute QTC 447, normal axis, nonspecific ST changes, no STEMI MDM Narrative Medical decision making narrative: 75-year-old female with a past medical history of metastatic/recurrent left-sided breast cancer currently undergoing treatment last treatment of (capecitabine) was 14 days ago at [facility], she does have baseline blindness of her right eye, hunting from home via EMS for evaluation of generalized weakness. She has no focal deficits NIH of 0 at time of evaluation. Was also informed by medics patient was slightly hypotensive prior to arrival. Patient lab work did show a leukopenia of 2.8, slightly decreased secondary to patient's recent chemotherapy, patient also with noted slight hypokalemia 3.3 this was repleted, also with a slight hypocalcemia calcemia 7.5 and hypoalbuminemia of 2.9, corrected 8.4, troponin negative, EKG nonischemic in nature. Did order broad-spectrum antibiotics given leukopenia, as well as patient stating was feeling febrile with generalized weakness. Additional information was obtained patient states that she has been having diarrhea ongoing for the past several days last loose stool was this afternoon. Patient's CT scan of head without any acute intracranial abnormality, chest x-ray without any acute findings, CTA of the chest no PE, however noted dilated main pulmonary arteries seen in pulmonary hypertension, she has osseous metastatic disease noted, bilateral pulmonary nodules noted as well. EKG just showing sinus tachycardia, respiratory panel negative CT scan of the abdomen showing enteritis versus possible early/partial small bowel obstruction therefore discussed case with general surgery Dr. Butler, who agrees we will just medically managed at this time, states will see patient in the morning no additional/repeat imaging necessary at this time, no necessary NG tube placement at this time. Given patient with eyes weakness unable to stand bear weight ambulate at her baseline, as well as persistent tachycardia patient will be admitted to the ED for further evaluation treatment. The patient's management plan was discussed Dr. Schmitz, who agrees to admit the patient to their service and assumes care of this patient at this time. Full admission orders will be placed by the primary team. Discharge Plan Departure Patient Disposition: Admitted As Inpatient Clinical Impression: Leukopenia, Generalized weakness, Tachycardia
--- NOTE | 2025-01-09 19:15 | DI.RAD.S_ITS ---
PROCEDURE: XR CHEST 1V INDICATIONS: weakness TECHNIQUE: One view of the chest was acquired. COMPARISON: Outside CT chest abdomen pelvis 06/19/2023. FINDINGS: Surgical changes and devices: Right chest wall port catheter with distal tip projecting over the right atrium. Lungs and pleura: Bilateral nodular opacities. Streaky opacities in the lingula. No significant pleural effusions or pneumothorax. Mediastinum: Mediastinal contours appear normal. Heart size is normal. Bones and chest wall: No suspicious bony lesions. Overlying soft tissues appear unremarkable. IMPRESSION: Lingular streaky opacities favored to represent atelectasis. Bilateral nodular opacities, which may represent nodules seen on prior CT in June 2023 Approved by: Cristy Richmond M.D.,Ph.D. on 01/09/2025 at 20:43
--- NOTE | 2025-01-09 19:16 | DI.CT.S_ITS ---
PROCEDURE: CT HEAD/BRAIN WO CON INDICATIONS: gen weakness TECHNIQUE: Noncontrast 4.5 mm thick angled axial sections acquired from the foramen magnum to the vertex, with coronal and sagittal reformats. For radiation dose reduction, the following was used: automated exposure control, adjustment of mA and/or kV according to patient size. COMPARISON: None. FINDINGS: Image quality: Diagnostic. CSF spaces: Basal cisterns are patent. No extra-axial fluid collections. The ventricles are symmetric in size and shape. Brain: No intracranial bleeds or mass effect. There is cerebral volume loss, with resultant ventricular and sulcal prominence. There are periventricular and deep white matter chronic small vessel ischemic changes. There is intracranial internal carotid artery atherosclerosis. Skull and face: Calvarium and visualized facial bones appear intact, without suspicious lesions. Sinuses: Visualized sinuses and mastoids are clear. IMPRESSION: No acute intracranial pathology. Approved by: Cristy Richmond M.D.,Ph.D. on 01/09/2025 at 20:58
[2025-01-09] MEDS: SODIUM CHLORIDE 0.9% 1,000 ML 1000 ML IV (19:30)
[2025-01-09 19:38] LABS: INR 2.5 (0.9-1.3); Prothrombin Time 28.0 SECONDS (9.4-12.5)
[2025-01-09 19:40] LABS: Add Manual Diff / Slide Review NO; Hematocrit 38.6 % (36-46); Hemoglobin 13.2 g/dL (12.0-16.0); Lymphocytes Absolute Auto 300 /uL (1100-4500); Mean Corpuscular HGB Conc 34.1 % (30-36); Mean Corpuscular Hemoglobin 36.1 PG (26-34); Mean Corpuscular Volume 105.9 fL (80-100); PTT Partial Thromboplastin Tim 29 SECONDS (25.1-36.5); Platelet Count 219 X10^3/uL (150-400)
[2025-01-09 19:42] LABS: Alanine Aminotransferase 24 IU/L (<35); Albumin 2.9 g/dL (3.5-5.0); Albumin Globulin Ratio 1.1 (1.0-2.8); Alkaline Phosphatase 111 U/L (38-126); Blood Urea Nitrogen 17 mg/dL (7-17); Calcium 7.5 mg/dL (8.4-10.2); Carbon Dioxide 28 mmol/L (22-32); Chloride 95 mmol/L (98-107); Estimated Glomerular Filt Rate > 60 mL/min (>60); Globulin 2.7 g/dL (1.7-4.1); Glucose 151 mg/dL (70-99); HEMOLYSIS < 15 (0-50); Lactate (Lactic Acid) 2.0 mmol/L (0.7-2.1); Lipase 67 U/L (23-300); Magnesium 1.9 mg/dL (1.6-2.3); Potassium 3.3 mmol/L (3.4-5.1); Sodium 130 mmol/L (137-145); Total Protein 5.6 g/dL (6.3-8.2)
[2025-01-09 19:43] LABS: Creatine Kinase 131 U/L (30-135)
--- NOTE | 2025-01-09 19:43 | EKG_ITS ---
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
[2025-01-09 19:51] LABS: NT-proBNP (BNP-Adult 18+) 1150 pg/mL (<450)
[2025-01-09 19:55] LABS: Troponin I < 0.012 ng/mL (0.01-0.034)
--- NOTE | 2025-01-09 20:10 | DI.CT.S_ITS ---
PROCEDURE: CT ANGIO CHEST PE PROTOCOL INDICATIONS: Tachycardia, rule out PE, history of left breast CA TECHNIQUE: After the administration of intravenous contrast, 2 mm thick sections acquired from the pulmonary apices to the posterior costophrenic angles. 3-dimensional maximum intensity projection (MIP) coronal and sagittal reformats were then acquired through the thorax. For radiation dose reduction, the following was used: automated exposure control, adjustment of mA and/or kV according to patient size. COMPARISON: Outside CT chest abdomen pelvis 06/19/2023, same-day CT abdomen pelvis with contrast 01/09/2025. FINDINGS: Image quality: Diagnostic. Pulmonary arteries: Main pulmonary artery is dilated measuring 3.7 cm in caliber. Pulmonary arteries demonstrate no intraluminal filling defects to suggest central pulmonary embolism. Lower Neck: No enlarged lymph nodes. Thyroid: No thyroid nodules which require sonographic follow up, per consensus guidelines. Axillae: No enlarged lymph nodes. Chest Wall: Right chest wall port catheter with tip terminating in the right atrium. Bones: Diffuse osseous metastases seen throughout the axial and appendicular skeleton. Healing sternal fracture. Chronic T12 compression fracture. Lungs and Pleura: No pneumothorax. Trace left pleural effusion. Medial right middle lobe and right lower lobe opacities with associated volume loss. Smooth interlobular septal thickening predominantly upper lobes. There is right upper lobe irregular solid nodule measuring 1.4 x 0.8 cm (5/100), previously 1.4 x 1.1 cm on 06/19/2023). Left lower lobe solid nodule measuring 1.3 x 0.9 cm (5/143), previously 1.0 x 0.7 cm. Lingular atelectasis. Additional bilateral solid nodules are again seen some which have decreased in size since June 2023 exam. Heart: Heart size is normal. No pericardial effusion. Thoracic Vessels: No aortic aneurysm. Mediastinum and Krista: No enlarged lymph nodes. Esophagus: No wall thickening. No hiatal hernia. Upper Abdomen: Separately dictated IMPRESSION: No pulmonary embolus. Dilated main pulmonary artery measuring up to 3.7 cm which can be seen in the setting of pulmonary hypertension. Bilateral pulmonary nodules, some of which have increased in size, others have decreased in size since prior CT in June 2023. Lingular and medial right lung atelectasis, although underlying malignancy cannot entirely be excluded. Diffuse osseous metastasis. Chronic T12 compression fracture. Approved by: Cristy Richmond M.D.,Ph.D. on 01/09/2025 at 21:11
--- NOTE | 2025-01-09 20:11 | DI.CT.S_ITS ---
PROCEDURE: CT ABDOMEN PELVIS W CON INDICATIONS: History of metastatic cancer, sepsis TECHNIQUE: After the administration of intravenous contrast, axial sections acquired from the lung bases to the pubic symphysis. Coronal and sagittal reformats were performed. For radiation dose reduction, the following was used: automated exposure control, adjustment of mA and/or kV according to patient size. COMPARISON: Same-day CT chest PE 01/09/2025, outside CT chest abdomen pelvis 06/19/2023 FINDINGS: Image quality: Diagnostic. Lower Chest: Separately dictated ABDOMEN: Liver: Multiple low-density lesions, many of which are new since prior CT in June 2023. Gallbladder: Layering sludge, small stones in the dependent portion of the gallbladder. No significant wall thickening or pericholecystic fluid. Biliary ducts: No biliary dilation. Pancreas: No ductal dilation. Spleen: Size is within normal limits. Adrenal Glands: No adrenal nodules. Kidneys and Ureters: No hydronephrosis. No solid mass. No complex renal cystic lesion which requires follow up. Stomach and Bowel: Distal small bowel wall thickening and dilation measuring up to 3.3 cm in caliber. No transition point identified. Peritoneum: Trace free fluid in the abdomen and pelvis. No free air. Ventral Wall: No significant ventral hernia. Abdominal Nodes: No retroperitoneal or mesenteric adenopathy by size criteria. Vessels: Aorta and inferior vena cava are normal in size. PELVIS: Pelvic Organs: Calcified uterine fibroids.. Bladder: No bladder wall thickening, accounting for underdistention. Pelvic Nodes: No enlarged lymph nodes. Miscellaneous: No inguinal hernias are seen. Bones: Diffuse osseous metastases. Chronic T12 compression fracture. IMPRESSION: Distal small bowel wall thickening with a few loops of fluid filled and dilated small bowel measuring up to 3.3 cm in caliber without definite transition point identified. Findings may represent enteritis. Early/partial small bowel obstruction cannot be excluded. Multiple hepatic hypodensities, new since prior CT in June 2023 concerning for metastatic disease. Trace abdominal ascites. Diffuse osseous metastasis. T12 chronic compression deformity. Approved by: Cristy Richmond M.D.,Ph.D. on 01/09/2025 at 22:19
[2025-01-09] MEDS: PIPERACILLIN/TAZO 4.5 GM in SODIUM CHLORIDE 0.9% 100 ML IV (20:28)
[2025-01-09 20:36] LABS: Coronavirus NL 63 Not Detected (Not Detect); SARS- CoV-2 Not Detected (Not Detecte)
[2025-01-09] MEDS: POTASSIUM CHLORIDE 20 MEQ TAB 40 MEQ PO (20:51)
[2025-01-09] MEDS: VANCOMYCIN 1,500 MG/300 ML PIGGYBACK 200 MG IV (20:52)
--- NOTE | 2025-01-09 21:00 | EKG_ITS ---
[address] [address] Test Date: 2025-01-09 Pat Name: Marry Mg Department: [facility] Room: Gender: Female Environmental Field Professional: SANGITA : 1950 Requested By: Order Number: [id number] Reading MD: Afshin Faustin Measurements Intervals [place] Rate: 108 P: [place]: QRS: -35 QRSD: 72 T: 18 QT: 326 QTc: 436 Interpretive Statements Accelerated Junctional rhythm with premature supraventricular complexes Left axis deviation Inferior infarct , age undetermined Anterior infarct , age undetermined Electronically Signed On 01-16-2025 7:22:45 PST by Afshin Faustin
[2025-01-09] MEDS: SODIUM CHLORIDE 0.9% 1,000 ML 100 ML IV (23:07)
[2025-01-10] VITALS (7 sets, daily range): BP systolic 91–124; BP diastolic 45–78; PULSE 74–109; RESP 16–20; TEMP 36.3–36.8; O2SAT 94–99; BMI 26.1
--- NOTE | 2025-01-10 00:20 | PC.NURSE ---
Patient admitted to ACU at 23:50. Alert and oriented x 4. Hypotensive, received order for 1L NS bolus. NPO. Oriented to room and call light. Call light within reach.
[2025-01-10] MEDS: SODIUM CHLORIDE 0.9% 1,000 ML 1000 ML IV ×2 (00:55→08:34)
--- NOTE | 2025-01-10 01:49 | PM.HP.1 ---
History of Present Illness History of Present Illness Date Patient Seen: 01/10/25 Time Patient Seen: 01:49 Chief complaint: Generalized weakness Narrative: 75-year-old female with past medical history of metastatic and recurrent breast cancer currently on chemotherapy, alcoholism in remission for the last 4 years, anxiety, and hypothyroidism presents with generalized weakness. Per the patient report the patient had treatment for her recurrent metastatic left breast cancer 14 days ago. Since then the patient has had increasing generalized weakness. The patient however denies any recent fever, chills, nausea, vomiting, diarrhea, chest pain or shortness of breath. Denies any dysuria or coughing. When EMS arrived the patient was found to be slightly hypotensive and IV fluid bolus was given. In the emergency room, the patient was having low normal blood pressure with initial blood pressure 109/55. The patient however was saturating well on room air without any signs of fever. Labs shows a WBC of 2.8 potassium 3.3 sodium 130 and the rest are relatively benign with negative viral respiratory panel. Lactate is also normal. The patient was initially given vancomycin and Zosyn due to concern of sepsis with hypotension. The patient was in sinus tachycardic with heart rate in the [address] angio of the chest shows no PE and chest x-ray shows no acute finding. CT scan of the abdomen shows enteritis versus possible early partial small bowel obstruction. General surgeon Dr. Urena was consulted who agreed that the patient should be admitted for medical management and will see the patient in the morning. FOR[facility] Medical History (Updated 01/09/25 @ 22:20 by Navid Silverman DO) History of alcoholism Arthritis Depression Anxiety Hemorrhoids Fibroids Skin cancer Thyroid disease Breast cancer, left (2019) Surgical History (Updated 06/07/22 @ 12:48 by Esther Loaiza MD) Hx of bilateral breast reduction surgery History of lumpectomy of left breast (2019) Social History household members: other Smoking Status: Never smoker alcohol intake: former substance use type: does not use Meds Home Medications and Allergies Home Medications ?Medication ?Instructions ?Recorded ?Confirmed ?Type acetaminophen 325 mg capsule 325 mg PO QID PRN Pain (Scale 06/18/22 01/10/25 History (Tylenol) Score 4-6) zoledronic acid 4 mg/5 mL 4 mg IV .q3 mos 05/13/23 01/10/25 History intravenous solution alprazolam 1 mg tablet 1 mg PO Q6H PRN anxiety 09/20/23 01/10/25 History calcium carb 1,000 mg-mag hydrox 1 tab PO DAILY 09/25/23 01/10/25 History 200 mg-simeth 40 mg chewable tablet levothyroxine 125 mcg tablet 62.5 mcg (1/2 x 125 mcg) PO DAILY 11/24/24 01/10/25 Rx #45 tabs allopurinol 100 mg tablet 100 mg PO DAILY #90 tabs 12/24/24 01/10/25 Rx capecitabine 500 mg tablet 500 mg PO .COMPLEX 12/26/24 01/10/25 History lidocaine-prilocaine 2.5 %-2.5 % See Rx Instructions topical 12/26/24 01/10/25 History topical cream .COMPLEX metronidazole 0.75 % topical gel 1 applic topical BID 12/26/24 01/10/25 History olanzapine 5 mg tablet 5 mg PO ONCE PM 12/26/24 01/10/25 History Allergies Allergy/AdvReac Type Severity Reaction Status Date / Time No Known Drug Allergies Allergy Verified 01/09/25 19:13 Review of Systems Review of Systems ROS: Yes All systems reviewed with the patient and are negative except as otherwise documented Exam Vital Signs (past 8 hours): - 01/09/25 19:14 01/09/25 19:20 01/09/25 19:22 Temperature 99.7 F H Pulse Rate 123 H 117 H 120 H Respiratory Rate 21 21 Blood Pressure 109/55 L Pulse Oximetry 92 91 92 Oxygen Delivery Method Room Air Oxygen Flow Rate 01/09/25 19:22 01/09/25 19:30 01/09/25 19:30 Temperature Pulse Rate 121 H Respiratory Rate 23 Blood Pressure 109/55 L 93/55 L Pulse Oximetry 93 Oxygen Delivery Method Oxygen Flow Rate 01/09/25 20:28 01/09/25 20:30 01/09/25 20:47 Temperature Pulse Rate 135 H 132 H Respiratory Rate 23 21 Blood Pressure 102/52 L Pulse Oximetry 84 L 90 L Oxygen Delivery Method Oxygen Flow Rate 01/09/25 20:47 01/09/25 20:58 01/09/25 21:00 Temperature Pulse Rate 125 H 130 H 129 H Respiratory Rate 25 H 18 23 Blood Pressure 102/52 L Pulse Oximetry 94 98 99 Oxygen Delivery Method Room Air Oxygen Flow Rate 01/09/25 21:00 01/09/25 21:30 01/09/25 21:30 Temperature Pulse Rate 121 H Respiratory Rate 11 L Blood Pressure 99/58 L 80/52 L Pulse Oximetry 98 Oxygen Delivery Method Oxygen Flow Rate 01/09/25 21:32 01/09/25 22:00 01/09/25 22:00 Temperature Pulse Rate 125 H 109 H Respiratory Rate 27 H 25 H Blood Pressure 89/57 L Pulse Oximetry 97 98 Oxygen Delivery Method Oxygen Flow Rate 01/09/25 22:30 01/09/25 22:30 01/09/25 22:53 Temperature Pulse Rate 102 H Respiratory Rate 18 Blood Pressure 83/52 L Pulse Oximetry 97 Oxygen Delivery Method Nasal Cannula Oxygen Flow Rate 01/09/25 23:00 01/09/25 23:00 01/09/25 23:53 Temperature 98.0 F Pulse Rate 118 H 118 H Respiratory Rate 17 20 Blood Pressure 94/51 L 78/47 L Pulse Oximetry 96 94 Oxygen Delivery Method Oxygen Flow Rate 0 01/10/25 01:05 Temperature Pulse Rate 109 H Respiratory Rate Blood Pressure 93/45 L Pulse Oximetry 99 Oxygen Delivery Method Oxygen Flow Rate 2 Oxygen Delivery Method Nasal Cannula Oxygen Flow Rate 2 Narrative Exam Narrative: Physical Exam: GENERAL: The patient is not in any acute distressed. Awake and alert. HEENT: Nonicteric sclerae, PERRLA, EOMI. Oropharynx clear. Moist mucous membranes. Conjunctivae appear well perfused. HEART: Regular rate and rhythm without murmurs. No lower extremities edema. LUNGS: Clear to auscultation bilaterally. No wheezing, crackles or rhonchi ABDOMEN: Soft, positive bowel sounds, nontender. SKIN: No rash, no excessive bruising, petechiae, or purpura. NEUROLOGIC: AxO x 3. Cranial nerves II-XII intact without motor/sensory deficit. Objective Labs 01/09/25 19:00 01/09/25 19:00 Labs: Laboratory Results - last 24 hr 01/09/25 01/09/25 01/09/25 19:00 19:00 19:39 WBC 2.8 L RBC 3.65 L Hgb 13.2 Hct 38.6 MCV 105.9 H MCH 36.1 H MCHC 34.1 RDW 17.2 H Plt Count 219 Neut % (Auto) 71.4 Lymph % (Auto) 9.7 L [place] % (Auto) 17.1 H Eos % (Auto) 1.3 L Baso % (Auto) 0.5 Neut # (Auto) 2000 Lymph # (Auto) 300 L [place] # (Auto) 500 Eos # (Auto) 0 Baso # (Auto) 0 PT 28.0 H INR 2.5 H APTT 29 Sodium 130 L Potassium 3.3 L Chloride 95 L Carbon Dioxide 28 BUN 17 Creatinine 0.58 Estimated GFR > 60 BUN/Creatinine Ratio 29.3 H Glucose 151 H Lactate 2.0 Calcium 7.5 L Magnesium 1.9 Total Bilirubin 1.3 AST 54 H ALT 24 Alkaline Phosphatase 111 Total Creatine Kinase Cancelled 131 Troponin I < 0.012 NT-Pro-B Natriuret Pep 1150 H Total Protein 5.6 L Albumin 2.9 L Globulin 2.7 Albumin/Globulin Ratio 1.1 Lipase 67 Chlamy pneumoniae PCR Not detected Adenovirus (PCR) Not detected B. pertussis DNA (PCR) Not detected B.parapertussis DNA PCR Not detected Coronavirus OC43 (PCR) Not detected Coronavirus HKU1 (PCR) Not detected Coronavirus 229E (PCR) Not detected SARS-CoV-2 (PCR) Not detected Coronavirus NL63 (PCR) Not detected Human Metapneumovir PCR Not detected Influenza Type A (PCR) Not detected Influenza Type B (PCR) Not detected M. pneumoniae (PCR) Not detected Parainfluenza 1 (PCR) Not detected Parainfluenza 2 (PCR) Not detected Parainfluenza 3 (PCR) Not detected Parainfluenza 4 (PCR) Not detected RSV (PCR) Not detected Entero/Rhino (PCR) Not detected Assessment & Plan Assessment & Plan narrative: Enteritis with possible early small obstruction. Met the patient to medical telemetry under observation. Of note the patient is medically stable at this time. General surgery Dr. Butler consulted. NPO. IV fluid. IV antiemetics. Hold off any antibiotics for now. Generalized weakness. Likely due to dehydration as above. Treat as above with IV fluid and monitor. PT OT. Dehydration. IV fluid. Leukopenic. Likely related to recent chemotherapy. Monitor for now. Lactate normal and patient afebrile. No signs of infection. UA still pending so we will continue to follow-up follow that. Patient did receive empiric vancomycin and Zosyn in the ER. Will hold off any further antibiotics until evidence of infection. Anxiety. Resume home medication. Hypothyroidism. Resume home Synthroid. DVT prophylaxis heparin subcu. CODE STATUS DNR/DNI. Disposition likely home in 1 to 2 days. - As the provider of this telehealth evaluation, requested by the patient's evaluating physician, I attest that I introduced myself to the patient, provided my credentials and determined that telemedicine via a real-time, 2 way interactive audio and video platform is an appropriate and effective means of providing this service. - I reviewed the patient's chart and had a discussion with the member of the patient's treatment team. - The patient and I mutually agreed with continuation of this evaluation via telemedicine. The patient consented for the telemedicine evaluation. - This virtual encounter was taken place from [place] by Dr. Soto Schmitz. The patient was evaluated at [facility]. The encounter was approximately 35 minutes. The nurse was present during the entire time of the encounter and was able assists with the stethoscope to listen to the patients. Time-Based Coding :: [TOTAL MINUTES] spent with patient and on the chart (including review of chart, obtaining history, exam, reviewing outside data, placing orders, documenting exam and treatment plan, and counseling patient) on [DATE].
[2025-01-10 02:07] LABS: Appearance Urine UA CLEAR; Bilirubin Urine UA 2+ (NEGATIVE); Color Urine UA YELLOW; Glucose Urine UA NEGATIVE (Negative); Ketones Urine UA 1+ (NEGATIVE); Leukocyte Esterase Urine UA NEGATIVE (NEGATIVE); Nitrite Urine UA POSITIVE (Negative); Occult Blood Urine UA NEGATIVE (Negative); Protein Urine UA 1+ (Negative); Specific Gravity Urine UA 1.015 (1.000-1.035); Urobilinogen Urine UA 0.2 E.U./dL (0.2)
[2025-01-10 02:25] LABS: pH Urine UA 5.5 (4.5-8.0)
[2025-01-10 02:26] LABS: Culture Indicated Urine Specimen Cultured; Ictotest Urine Negative (Negative)
[2025-01-10 03:22] LABS: Clostridium difficile toxin AB Not Detected (Not Detect); Enteroaggregative E.coli Not Detected (Not Detect); Enteropathogenic E.coli Not Detected (Not Detect); Enterotoxigenic E.coli It/st Not Detected (Not Detect); Plesiomonsa shigelloides Not Detected (Not Detect); Shiga-like toxin-prod E.coli Not Detected (Not Detect)
[2025-01-10] MEDS: LEVOTHYROXINE 125 MCG TABLET 62.5 MCG PO (06:14)
[2025-01-10 07:38] LABS: Hematocrit 29.9 % (36-46); Hemoglobin 10.1 g/dL (12.0-16.0); Mean Corpuscular HGB Conc 33.8 % (30-36); Mean Corpuscular Hemoglobin 35.9 PG (26-34); Mean Corpuscular Volume 106.2 fL (80-100); Platelet Count 154 X10^3/uL (150-400)
[2025-01-10 07:55] LABS: Blood Urea Nitrogen 15 mg/dL (7-17); Carbon Dioxide 23 mmol/L (22-32); Chloride 105 mmol/L (98-107); Estimated Glomerular Filt Rate > 60 mL/min (>60); Glucose 120 mg/dL (70-99); HEMOLYSIS < 15 (0-50); Sodium 131 mmol/L (137-145)
[2025-01-10 08:00] LABS: Potassium 3.1 mmol/L (3.4-5.1)
[2025-01-10 08:15] LABS: Calcium 6.3 mg/dL (8.4-10.2)
[2025-01-10 08:20] LABS: Add Manual Diff / Slide Review YES
[2025-01-10 08:24] LABS: Band Neutrophils Percent 6.0 % (3-7); Eosinophils Percent Manual 5.0 % (2-4); Lymphocytes Percent Manual 14.0 % (25-45); Monocytes Percent Manual 18.0 % (2-11); Neutrophils Absolute Manual 1449 /uL (3000-5900); Segmented Neutrophils Percent 57.0 % (38-70); Total Cells Counted 100
[2025-01-10 08:25] LABS: Anisocytosis 1+; Macrocytosis 1+; Toxic Granulation Present
--- NOTE | 2025-01-10 09:08 | P.CONS_ITS ---
History of Present Illness Consult details Date Patient Seen: 01/10/25 Time Patient Seen: 09:08 Chief complaint: Generalized weakness Reason for consult: Abnormal CT scan Narrative: Marry is a 75-year-old woman with metastatic breast cancer who presented to the emergency room last night for weakness. She also endorses that she has had occasional vomiting and diarrhea for several weeks. A CT scan showed some dilated, thickened loops of small bowel in the radiologist suggested a possibility of a bowel obstruction. She has been fatigued and sleeping a lot. She is not certain if she has been passing flatus because she is sleeping most of the time. Meds Home Medications and Allergies Home Medications ?Medication ?Instructions ?Recorded ?Confirmed ?Type acetaminophen 325 mg capsule 325 mg PO QID PRN Pain (S desirae 06/18/22 01/10/25 History (Tylenol) Score 4-6) zoledronic acid 4 mg/5 mL 4 mg IV .q3 mos 05/13/23 History intravenous solution alprazolam 1 mg tablet 1 mg PO Q6H PRN anxiety 11/0401/10/25 History calcium carb 1,000 mg-mag hydrox 1 tab PO DAILY 01/10/25 History 200 mg-simeth 40 mg chewable tablet levothyroxine 125 mcg tablet 62.5 mcg (1/2 x 125 mcg) PO DAILY 11/24/24 01/10/25 Rx #45 tabs allopurinol 100 mg tablet 100 mg PO DAILY #90 tabs 01/10/25 Rx capecitabine 500 mg tablet 500 mg PO .COMPLEX 12/26/24 01/10/25 History lidocaine-prilocaine 2.5 %-2.5 % See Rx Instructions t opical 12/26/24 01/10/25 History topical cream .COMPLEX metronidazole 0.75 % topical gel 1 applic topical BID 12/26/24 01/10/25 History olanzapine 5 mg tablet 5 mg PO ONCE PM 12/26/24 History Allergies Allergy/AdvReac Type Severity Reaction Status Date / Time No Known Drug Allergies Allergy Verified 01/09/25 19:13 Exam Vital Signs (past 8 hours): - 01/10/25 02:51 01/10/25 04:00 01/10/25 08:14 Temperature 97.4 F L 98.0 F Pulse Rate 74 107 H Respiratory Rate 20 16 Blood Pressure 91/47 L 96/58 L Pulse Oximetry 99 98 98 Oxygen Delivery Method Nasal Cannula Oxygen Flow Rate 2 2 Fraction of Inspired Oxygen 28 Fraction of Inspired Oxygen 28 SaO2/FiO2 Ratio 353 Oxygen Delivery Method Nasal Cannula Oxygen Flow Rate 2 Narrative Exam Narrative: Abdomen is soft, nontender Objective Labs 01/10/25 07:00 01/10/25 07:00 Labs: Laboratory Results - last 24 hr 01/09/25 01/09/25 01/09/25 19:00 19:00 19:39 WBC 2.8 L RBC 3.65 L Hgb 13.2 Hct 38.6 MCV 105.9 H MCH 36.1 H MCHC 34.1 RDW 17.2 H Plt Count 219 Neut % (Auto) 71.4 Lymph % (Auto) 9.7 L [place] % (Auto) 17.1 H Eos % (Auto) 1.3 L Baso % (Auto) 0.5 Neut # (Auto) 2000 Lymph # (Auto) 300 L [place] # (Auto) 500 Eos # (Auto) 0 Baso # (Auto) 0 Total Counted Seg Neutrophils % Band Neutrophils % Lymphocytes % (Manual) Monocytes % (Manual) Eosinophils % (Manual) Neutrophils # (Manual) Toxic Granulation RBC Morphology Anisocytosis Macrocytosis PT 28.0 H INR 2.5 H APTT 29 Sodium 130 L Potassium 3.3 L Chloride 95 L Carbon Dioxide 28 BUN 17 Creatinine 0.58 Estimated GFR > 60 BUN/Creatinine Ratio 29.3 H Glucose 151 H Lactate 2.0 Calcium 7.5 L Magnesium 1.9 Total Bilirubin 1.3 AST 54 H ALT 24 Alkaline Phosphatase 111 Total Creatine Kinase Cancelled 131 Troponin I < 0.012 NT-Pro-B Natriuret Pep 1150 H Total Protein 5.6 L Albumin 2.9 L Globulin 2.7 Albumin/Globulin Ratio 1.1 Lipase 67 Urine Color Urine Appearance Urine pH Ur Specific [place] Urine Protein Urine Glucose (UA) Urine Ketones Urine Occult Blood Urine Nitrate Urine Bilirubin Ur Bilirubin Confirm Urine Urobilinogen Ur Leukocyte Esterase Urine RBC Urine WBC Ur Squamous Epith Cells Urine Bacteria Ur Culture Indicated? Vol Urine Centrifuged Stl C. cayetanensis PCR Stool Rotavirus (PCR) Stool Adenovirus (PCR) Stool Astrovirus (PCR) Stool Cryptosporidium PCR Stl E.coli Shiga Tox PCR St Sh/Enteroin Ecoli PCR Stl Enterotoxigenic E PCR Stool EPEC (PCR) Stl E. histolytica PCR Stool Giardia Lamblia PCR Stool Sapovirus (PCR) Stl P. shigelloides PCR St Y.enterocolitica PCR Stool Vibrio (PCR) Stl Vibrio cholerae PCR Stl Enteroaggr Ecoli PCR Stl Norovirus GI/GII PCR Chlamy pneumoniae PCR Not detected Adenovirus (PCR) Not detected B. pertussis DNA (PCR) Not detected B.parapertussis DNA PCR Not detected Campylobacter (PCR) C. difficile Tox (PCR) Coronavirus OC43 (PCR) Not detected Coronavirus HKU1 (PCR) Not detected Coronavirus 229E (PCR) Not detected SARS-CoV-2 (PCR) Not detected Coronavirus NL63 (PCR) Not detected Human Metapneumovir PCR Not detected Influenza Type A (PCR) Not detected Influenza Type B (PCR) Not detected M. pneumoniae (PCR) Not detected Parainfluenza 1 (PCR) Not detected Parainfluenza 2 (PCR) Not detected Parainfluenza 3 (PCR) Not detected Parainfluenza 4 (PCR) Not detected RSV (PCR) Not detected Entero/Rhino (PCR) Not detected Salmonella (PCR) 01/10/25 01/10/25 01/10/25 01:25 01:35 07:00 WBC 2.3 L RBC 2.81 L Hgb 10.1 L Hct 29.9 L MCV 106.2 H MCH 35.9 H MCHC 33.8 RDW 17.4 H Plt Count 154 Neut % (Auto) Not Reportable Lymph % (Auto) Not Reportable [place] % (Auto) Not Reportable Eos % (Auto) Not Reportable Baso % (Auto) Not Reportable Neut # (Auto) Lymph # (Auto) Not Reportable [place] # (Auto) Not Reportable Eos # (Auto) Baso # (Auto) Not Reportable Total Counted 100 Seg Neutrophils % 57.0 Band Neutrophils % 6.0 Lymphocytes % (Manual) 14.0 L Monocytes % (Manual) 18.0 H Eosinophils % (Manual) 5.0 H Neutrophils # (Manual) 1449 L Toxic Granulation Present H RBC Morphology See below Anisocytosis 1+ H Macrocytosis 1+ H PT INR APTT Sodium 131 L Potassium 3.1 L Chloride 105 Carbon Dioxide 23 BUN 15 Creatinine 0.48 L Estimated GFR > 60 BUN/Creatinine Ratio 31.3 H Glucose 120 H Lactate Calcium 6.3 L* Magnesium Total Bilirubin AST ALT Alkaline Phosphatase Total Creatine Kinase Troponin I NT-Pro-B Natriuret Pep Total Protein Albumin Globulin Albumin/Globulin Ratio Lipase Urine Color Yellow Urine Appearance Clear Urine pH 5.5 Ur Specific [place] 1.015 Urine Protein 1+ H Urine Glucose (UA) Negative Urine Ketones 1+ H Urine Occult Blood Negative Urine Nitrate Positive H Urine Bilirubin 2+ H Ur Bilirubin Confirm Negative Urine Urobilinogen 0.2 Ur Leukocyte Esterase Negative Urine RBC None seen Urine WBC 0-1/hpf Ur Squamous Epith Cells 1-5 /hpf Urine Bacteria Occasional (0-1) Ur Culture Indicated? Specimen cultured Vol Urine Centrifuged 10ml (spun) Stl C. cayetanensis PCR Not detected Stool Rotavirus (PCR) Not detected Stool Adenovirus (PCR) Not detected Stool Astrovirus (PCR) Not detected Stool Cryptosporidium PCR Not detected Stl E.coli Shiga Tox PCR Not detected St Sh/Enteroin Ecoli PCR Not detected Stl Enterotoxigenic E PCR Not detected Stool EPEC (PCR) Not detected Stl E. histolytica PCR Not detected Stool Giardia Lamblia PCR Not detected Stool Sapovirus (PCR) Not detected Stl P. shigelloides PCR Not detected St Y.enterocolitica PCR Not detected Stool Vibrio (PCR) Not detected Stl Vibrio cholerae PCR Not detected Stl Enteroaggr Ecoli PCR Not detected Stl Norovirus GI/GII PCR Not detected Chlamy pneumoniae PCR Adenovirus (PCR) B. pertussis DNA (PCR) B.parapertussis DNA PCR Campylobacter (PCR) Not detected C. difficile Tox (PCR) Not detected Coronavirus OC43 (PCR) Coronavirus HKU1 (PCR) Coronavirus 229E (PCR) SARS-CoV-2 (PCR) Coronavirus NL63 (PCR) Human Metapneumovir PCR Influenza Type A (PCR) Influenza Type B (PCR) M. pneumoniae (PCR) Parainfluenza 1 (PCR) Parainfluenza 2 (PCR) Parainfluenza 3 (PCR) Parainfluenza 4 (PCR) RSV (PCR) Entero/Rhino (PCR) Salmonella (PCR) Not detected [facility] Medical History (Updated 01/09/25 @ 22:20 by Navid Silverman DO) History of alcoholism Arthritis Depression Anxiety Hemorrhoids Fibroids Skin cancer Thyroid disease Breast cancer, left (2019) Surgical History (Updated 06/07/22 @ 12:48 by Esther Loaiza MD) Hx of bilateral breast reduction surgery History of lumpectomy of left breast (2019) Social History household members: other Tobacco & Substance Use Smoking Status: Never smoker alcohol intake: former substance use type: does not use Assessment & Plan Assessment and plan (1) Generalized weakness: Status: Acute Plan Based on the CT and her clinical picture I do not suspect she has a small-bowel obstruction. Her diarrhea and the appearance of her bowel on CT could reflect a viral infection or a drug reaction. Recommend supportive care. Time-Based Coding :: [TOTAL MINUTES] spent with patient and on the chart (including review of chart, obtaining history, exam, reviewing outside data, placing orders, documenting exam and treatment plan, and counseling patient) on [DATE]. PROFEE Charge Codes Inpatient or Observation consultation: 26344
[2025-01-10] MEDS: SODIUM CHLORIDE 0.9% 1,000 ML 100 ML IV ×2 (10:00→18:48)
[2025-01-10] MEDS: HEPARIN 5,000 UNIT/ML VIAL 5000 UNIT SUBCUT (10:36)
--- NOTE | 2025-01-10 10:46 | PT-IP ANOTE ---
PT checked in with Marry this am, she reports she is exhausted and wants to sleep. She denied working with PT this am. PT to check back in this afternoon with her this PM
--- NOTE | 2025-01-10 13:35 | PT-IP ANOTE ---
PT attempted to work with pt again however she just got back to bed from being up in the chair for lunch. I spoke with nursing who said she had gotten up to use the commode and sat in bedside chair for lunch. PT to assess tomorrow
[2025-01-10] MEDS: CALCIUM GLUCONATE 9.3 MEQ in SODIUM CHLORIDE 0.9% 50 ML 140 MEQ IV (14:56)
--- NOTE | 2025-01-10 15:19 | CM.DANOTE ---
DCP Assessment Note: Pt is a 75yo female, resident of [place], is admitted for gastroenteritis and weakness. Hx of breast CA. Pt lives in an apartment alone. Pt's Primary Care Provider is Dr. Chiquita Larson and insurance is [facility] Medicare. Reviewed chart and discussed with multidisciplinary team pt's medical status and initial discharge needs. Per hospitalist, plan is for pt to be NPO and consult with general surgery for suspected SBO, hopes to discharge home in 1-2 days at this time. It is noted that pt has an active chemotherapy plan at [facility]. Per General Surgeon, no SBO detected. Per PT, two attempts were made today for evaluation but pt is too fatigued to participate; CM team to follow for recommendations. DCP met w/patient at bedside; introduced self and role. Present in the room are pt's son, Gautam, and his partner. Patient was found in bed, fatigued but cooperative with assessment. Pt confirmed living situation and good support in son. Pt expressed preference in discharge home when cleared to continue with CA treatments. Pt has no prior history of home health or SNF Rehab. Pt and son state preference to discuss treatment plan with hospitalist when available. JOB TRAINING SUPERVISOR notified RN and hospitalist of above request. Plan: Awaiting PT/OT evaluations and recommendation for evolving discharge plans, anticipating dc home with son to transport on 01/12 or when medically cleared. CM team will follow closely for coordination of discharge plans. CYNTHIA Brown Discharge Planning/Care Management Advanced directive, confirm from FAMILY Start: 01/10/25 00:55 Freq: Q24H Status: Active Protocol: Document 01/10/25 00:55 (Rec: 01/10/25 01:15 [id number]) Advance Directive, confirm on record Time 23:45 Person contacted pt Copy received No CM Discharge Assessment Start: 01/09/25 22:53 Freq: Status: Active Protocol: Document 01/10/25 15:17 MW (Rec: 01/10/25 15:19 MW [id number]) Discharge Planning Assessment Assigned Discharge JESSICA Vitale Single Needle Tufting Machine Operator Provider Dr. Chiquita Larson Insurance [facility] DPOA/Assigned Anselmo Yeh Designee Name Contact Information [phone] Advance Directives? Yes Advance Directives No on File History Provided By Patient Has Patient been No admitted in last 30 days? Prior Living Apartment/Condo Arrangements Household Members none Independent with ADL Yes 's Is patient alert and Yes oriented? Discharge Plan Home Review Status In Process Please Provide Date 01/10/25 Initial DC Assessment Was Performed Next Review Type Continued Stay Review
--- NOTE | 2025-01-10 17:50 | P.HP_ITS ---
History of Present Illness History of Present Illness Date Patient Seen: 01/10/25 Chief complaint: Generalized weakness leukopenia post chemotherapy Narrative: Chief complaint: Generalized weakness and leukopenia post chemotherapy History of present illness: 01/10: (per nocturnal physician) 75-year-old female with past medical history of metastatic and recurrent breast cancer currently on chemotherapy, alcoholism in remission for the last 4 years, anxiety, and hypothyroidism presents with generalized weakness. Per the patient report the patient had treatment for her recurrent metastatic left breast cancer 14 days ago. Since then the patient has had increasing generalized weakness. The patient however denies any recent fever, chills, nausea, vomiting, diarrhea, chest pain or shortness of breath. Denies any dysuria or coughing. When EMS arrived the patient was found to be slightly hypotensive and IV fluid bolus was given. In the emergency room, the patient was having low normal blood pressure with initial blood pressure 109/55. The patient however was saturating well on room air without any signs of fever. Labs shows a WBC of 2.8 potassium 3.3 sodium 130 and the rest are relatively benign with negative viral respiratory panel. Lactate is also normal. The patient was initially given vancomycin and Zosyn due to concern of sepsis with hypotension. The patient was in sinus tachycardic with heart rate in the [address] angio of the chest shows no PE and chest x-ray shows no acute finding. CT scan of the abdomen shows enteritis versus possible early partial small bowel obstruction. General surgeon Dr. Urena was consulted who agreed that the patient should be admitted for medical management and will see the patient in the morning. Hospital course: 01/10: White blood cell count de-escalated slightly to 2.1 overnight patient has not had any fevers or chills abdominal pain nausea vomiting or diarrhea no cough Review of systems: As above No headache diplopia blurred vision No changes In level of consciousness no paresthesia paresis Physical examination: Very fatigued ill appearing elderly female HEENT unremarkable oropharynx without lesions Neck no adenopathy Heart rate and rhythm regular Lungs clear no rales Abdomen nondistended nontender bowel sounds present Extremities no edema Assessment and plan Enteritis with possible early small obstruction but clinical picture favors ileus. * General surgery Dr. Butler consulted. * NPO. Advanced to clear liquid diet * IV fluid. * IV antiemetics. * Hold off any antibiotics for now. Generalized weakness. * Likely due to dehydration as above. Dehydration. * IV fluid. Leukopenic. Likely related to recent chemotherapy. * Monitor for now. * Lactate normal and patient afebrile. * No signs of infection. * still pending so we will continue to follow-up follow that. * Patient did receive empiric vancomycin and Zosyn in the ER. * Will hold off any further antibiotics until evidence of infection. Anxiety. * Resume home medication. Hypothyroidism. * Resume home Synthroid. DVT prophylaxis * Heparin subcu. CODE STATUS * DNR/DNI. Disposition * Likely home in 1 to 2 days. Time based billing: * 55 minutes were involved evaluating this patient's pruning [id number] evaluation physical examination review of medical records review of objective laboratory and imaging findings discussion with patient and family [facility] Medical History (Updated 01/09/25 @ 22:20 by Navid Silverman DO) History of alcoholism Arthritis Depression Anxiety Hemorrhoids Fibroids Skin cancer Thyroid disease Breast cancer, left (2018) Surgical History (Updated 06/07/22 @ 12:48 by Esther Loaiza MD) Hx of bilateral breast reduction surgery History of lumpectomy of left breast (2019) Social History household members: none Smoking Status: Never smoker alcohol intake: former substance use type: does not use Meds Home Medications and Allergies Home Medications ?Medication ?Instructions ?Recorded ?Confirmed ?Type acetaminophen 325 mg capsule 325 mg PO QID PRN Pain (S desirae 06/18/22 01/10/25 History (Tylenol) Score 4-6) zoledronic acid 4 mg/5 mL 4 mg IV .q3 mos 05/13/23 History intravenous solution alprazolam 1 mg tablet 1 mg PO Q6H PRN anxiety 08/11/0401/10/25 History calcium carb 1,000 mg-mag hydrox 1 tab PO DAILY 01/10/25 History 200 mg-simeth 40 mg chewable tablet levothyroxine 125 mcg tablet 62.5 mcg (1/2 x 125 mcg) PO DAILY 11/24/24 01/10/25 Rx #45 tabs allopurinol 100 mg tablet 100 mg PO DAILY #90 tabs 01/10/25 Rx capecitabine 500 mg tablet 500 mg PO .COMPLEX 12/26/24 01/10/25 History lidocaine-prilocaine 2.5 %-2.5 % See Rx Instructions t opical 12/26/24 01/10/25 History topical cream .COMPLEX metronidazole 0.75 % topical gel 1 applic topical BID 12/26/24 01/10/25 History olanzapine 5 mg tablet 5 mg PO ONCE PM 12/26/24 History Allergies Allergy/AdvReac Type Severity Reaction Status Date / Time No Known Drug Allergies Allergy Verified 01/09/25 19:13 Exam Vital Signs (past 8 hours): - 01/10/25 15:03 Temperature 98.3 F Pulse Rate 81 Respiratory Rate 16 Blood Pressure 124/78 Pulse Oximetry 98 Fraction of Inspired Oxygen 28 SaO2/FiO2 Ratio 353 Oxygen Delivery Method Nasal Cannula Oxygen Flow Rate 2 Objective Labs 01/10/25 07:00 01/10/25 07:00 Labs: Laboratory Results - last 24 hr 01/09/25 01/09/25 01/09/25 19:00 19:00 19:39 WBC 2.8 L RBC 3.65 L Hgb 13.2 Hct 38.6 MCV 105.9 H MCH 36.1 H MCHC 34.1 RDW 17.2 H Plt Count 219 Neut % (Auto) 71.4 Lymph % (Auto) 9.7 L [place] % (Auto) 17.1 H Eos % (Auto) 1.3 L Baso % (Auto) 0.5 Neut # (Auto) 2000 Lymph # (Auto) 300 L [place] # (Auto) 500 Eos # (Auto) 0 Baso # (Auto) 0 Total Counted Seg Neutrophils % Band Neutrophils % Lymphocytes % (Manual) Monocytes % (Manual) Eosinophils % (Manual) Neutrophils # (Manual) Toxic Granulation RBC Morphology Anisocytosis Macrocytosis PT 28.0 H INR 2.5 H APTT 29 Sodium 130 L Potassium 3.3 L Chloride 95 L Carbon Dioxide 28 BUN 17 Creatinine 0.58 Estimated GFR > 60 BUN/Creatinine Ratio 29.3 H Glucose 151 H Lactate 2.0 Calcium 7.5 L Magnesium 1.9 Total Bilirubin 1.3 AST 54 H ALT 24 Alkaline Phosphatase 111 Total Creatine Kinase Cancelled 131 Troponin I < 0.012 NT-Pro-B Natriuret Pep 1150 H Total Protein 5.6 L Albumin 2.9 L Globulin 2.7 Albumin/Globulin Ratio 1.1 Lipase 67 Urine Color Urine Appearance Urine pH Ur Specific [place] Urine Protein Urine Glucose (UA) Urine Ketones Urine Occult Blood Urine Nitrate Urine Bilirubin Ur Bilirubin Confirm Urine Urobilinogen Ur Leukocyte Esterase Urine RBC Urine WBC Ur Squamous Epith Cells Urine Bacteria Ur Culture Indicated? Vol Urine Centrifuged Stl C. cayetanensis PCR Stool Rotavirus (PCR) Stool Adenovirus (PCR) Stool Astrovirus (PCR) Stool Cryptosporidium PCR Stl E.coli Shiga Tox PCR St Sh/Enteroin Ecoli PCR Stl Enterotoxigenic E PCR Stool EPEC (PCR) Stl E. histolytica PCR Stool Giardia Lamblia PCR Stool Sapovirus (PCR) Stl P. shigelloides PCR St Y.enterocolitica PCR Stool Vibrio (PCR) Stl Vibrio cholerae PCR Stl Enteroaggr Ecoli PCR Stl Norovirus GI/GII PCR Chlamy pneumoniae PCR Not detected Adenovirus (PCR) Not detected B. pertussis DNA (PCR) Not detected B.parapertussis DNA PCR Not detected Campylobacter (PCR) C. difficile Tox (PCR) Coronavirus OC43 (PCR) Not detected Coronavirus HKU1 (PCR) Not detected Coronavirus 229E (PCR) Not detected SARS-CoV-2 (PCR) Not detected Coronavirus NL63 (PCR) Not detected Human Metapneumovir PCR Not detected Influenza Type A (PCR) Not detected Influenza Type B (PCR) Not detected M. pneumoniae (PCR) Not detected Parainfluenza 1 (PCR) Not detected Parainfluenza 2 (PCR) Not detected Parainfluenza 3 (PCR) Not detected Parainfluenza 4 (PCR) Not detected RSV (PCR) Not detected Entero/Rhino (PCR) Not detected Salmonella (PCR) 01/10/25 01/10/25 01/10/25 01:25 01:35 07:00 WBC 2.3 L RBC 2.81 L Hgb 10.1 L Hct 29.9 L MCV 106.2 H MCH 35.9 H MCHC 33.8 RDW 17.4 H Plt Count 154 Neut % (Auto) Not Reportable Lymph % (Auto) Not Reportable [place] % (Auto) Not Reportable Eos % (Auto) Not Reportable Baso % (Auto) Not Reportable Neut # (Auto) Lymph # (Auto) Not Reportable [place] # (Auto) Not Reportable Eos # (Auto) Baso # (Auto) Not Reportable Total Counted 100 Seg Neutrophils % 57.0 Band Neutrophils % 6.0 Lymphocytes % (Manual) 14.0 L Monocytes % (Manual) 18.0 H Eosinophils % (Manual) 5.0 H Neutrophils # (Manual) 1449 L Toxic Granulation Present H RBC Morphology See below Anisocytosis 1+ H Macrocytosis 1+ H PT INR APTT Sodium 131 L Potassium 3.1 L Chloride 105 Carbon Dioxide 23 BUN 15 Creatinine 0.48 L Estimated GFR > 60 BUN/Creatinine Ratio 31.3 H Glucose 120 H Lactate Calcium 6.3 L* Magnesium Total Bilirubin AST ALT Alkaline Phosphatase Total Creatine Kinase Troponin I NT-Pro-B Natriuret Pep Total Protein Albumin Globulin Albumin/Globulin Ratio Lipase Urine Color Yellow Urine Appearance Clear Urine pH 5.5 Ur Specific [place] 1.015 Urine Protein 1+ H Urine Glucose (UA) Negative Urine Ketones 1+ H Urine Occult Blood Negative Urine Nitrate Positive H Urine Bilirubin 2+ H Ur Bilirubin Confirm Negative Urine Urobilinogen 0.2 Ur Leukocyte Esterase Negative Urine RBC None seen Urine WBC 0-1/hpf Ur Squamous Epith Cells 1-5 /hpf Urine Bacteria Occasional (0-1) Ur Culture Indicated? Specimen cultured Vol Urine Centrifuged 10ml (spun) Stl C. cayetanensis PCR Not detected Stool Rotavirus (PCR) Not detected Stool Adenovirus (PCR) Not detected Stool Astrovirus (PCR) Not detected Stool Cryptosporidium PCR Not detected Stl E.coli Shiga Tox PCR Not detected St Sh/Enteroin Ecoli PCR Not detected Stl Enterotoxigenic E PCR Not detected Stool EPEC (PCR) Not detected Stl E. histolytica PCR Not detected Stool Giardia Lamblia PCR Not detected Stool Sapovirus (PCR) Not detected Stl P. shigelloides PCR Not detected St Y.enterocolitica PCR Not detected Stool Vibrio (PCR) Not detected Stl Vibrio cholerae PCR Not detected Stl Enteroaggr Ecoli PCR Not detected Stl Norovirus GI/GII PCR Not detected Chlamy pneumoniae PCR Adenovirus (PCR) B. pertussis DNA (PCR) B.parapertussis DNA PCR Campylobacter (PCR) Not detected C. difficile Tox (PCR) Not detected Coronavirus OC43 (PCR) Coronavirus HKU1 (PCR) Coronavirus 229E (PCR) SARS-CoV-2 (PCR) Coronavirus NL63 (PCR) Human Metapneumovir PCR Influenza Type A (PCR) Influenza Type B (PCR) M. pneumoniae (PCR) Parainfluenza 1 (PCR) Parainfluenza 2 (PCR) Parainfluenza 3 (PCR) Parainfluenza 4 (PCR) RSV (PCR) Entero/Rhino (PCR) Salmonella (PCR) Not detected Assessment & Plan Time-Based Coding :: [TOTAL MINUTES] spent with patient and on the chart (including review of chart, obtaining history, exam, reviewing outside data, placing orders, documenting exam and treatment plan, and counseling patient) on [DATE].
[2025-01-11] VITALS (8 sets, daily range): BP systolic 83–115; BP diastolic 47–78; PULSE 65–100; RESP 16–19; TEMP 36.1–36.6; O2SAT 92–97
[2025-01-11] MEDS: LOPERAMIDE 2 MG CAPSULE PO ×2 (00:07→21:16)
[2025-01-11] MEDS: SODIUM CHLORIDE 0.9% 1,000 ML 100 ML IV ×2 (04:15→06:08)
[2025-01-11] MEDS: SODIUM CHLORIDE 0.9% 500 ML 1000 ML IV (04:41)
[2025-01-11] MEDS: LEVOTHYROXINE 125 MCG TABLET 62.5 MCG PO (06:06)
[2025-01-11] MEDS: SODIUM CHLORIDE 0.9% 1,000 ML 1000 ML IV (07:50)
[2025-01-11] MEDS: HEPARIN 5,000 UNIT/ML VIAL 5000 UNIT SUBCUT ×2 (08:19→20:17)
[2025-01-11 08:33] LABS: Add Manual Diff / Slide Review NO; Hematocrit 30.8 % (36-46); Hemoglobin 10.5 g/dL (12.0-16.0); Lymphocytes Absolute Auto 100 /uL (1100-4500); Mean Corpuscular HGB Conc 33.9 % (30-36); Mean Corpuscular Hemoglobin 36.0 PG (26-34); Mean Corpuscular Volume 106.2 fL (80-100); Platelet Count 172 X10^3/uL (150-400)
[2025-01-11 08:34] LABS: Alanine Aminotransferase 18 IU/L (<35); Albumin 1.8 g/dL (3.5-5.0); Albumin Globulin Ratio 0.8 (1.0-2.8); Alkaline Phosphatase 105 U/L (38-126); Blood Urea Nitrogen 12 mg/dL (7-17); Carbon Dioxide 23 mmol/L (22-32); Chloride 110 mmol/L (98-107); Estimated Glomerular Filt Rate > 60 mL/min (>60); Globulin 2.2 g/dL (1.7-4.1); Glucose 139 mg/dL (70-99); HEMOLYSIS < 15 (0-50); Sodium 134 mmol/L (137-145); Total Protein 4.0 g/dL (6.3-8.2)
[2025-01-11 08:40] LABS: Potassium 2.7 mmol/L (3.4-5.1)
[2025-01-11 08:41] LABS: Calcium 6.3 mg/dL (8.4-10.2)
[2025-01-11] MEDS: POTASSIUM CHLORIDE IN WATER 10 MEQ/100 ML PIGGYBACK 100 MEQ IV ×6 (10:00→16:50)
[2025-01-11] MEDS: PIPERACILLIN/TAZO 3.375 GM in SODIUM CHLORIDE 0.9% 100 ML IV ×2 (10:00→17:04)
--- NOTE | 2025-01-11 11:01 | PT.IIE ---
Current Diagnoses Noninfective gastroenteritis and colitis, unspecified (01/09/25) Weakness (01/09/25) Surgical History (Last Updated 05/11/22 @ 13:18 by Sabrina Do RN) History of lumpectomy of left breast (2019) Hx of bilateral breast reduction surgery Medical History (Last Updated 04/03/23 @ 14:24 by Chiquita Larson DO) Anxiety Arthritis Breast cancer, left (2019) Depression Fibroids Hemorrhoids History of alcoholism Skin cancer Thyroid disease Physical Therapy Inpatient Evaluation/Re-Eval M1 PT IP Prior Functional Status Start: 01/10/25 08:30 Freq: NEEDED Status: Active Protocol: Document 01/11/25 08:43 LRN (Rec: 01/11/25 09:12 LRN Laptop) Medical Review Prior Functional Status Medical History Yes Reviewed Diet/Fluid Regular Consistency Communication Normal Mobility and Gait Normal, no assistive device needed. Pt reports being active taking Jacques Chi, Balance and strength classes and walked daily ~3000 steps. Activities of Daily Independent Living and IADL's Drives independently Works at [employer] 20 hrs/week. Social History Household Members none Living Arrangements Apartment/Condo Number of Floors ( One Floor Floors) Number of Stairs To 48 from garage to condo, pt chooses not to take Enter/Railing? elevator due to not liking to be in confined spaces. Home Environment Standard Height Toilet Employment Status Healthcare Specialist Employed Additional Social Has walking sticks. History Comment M2 PT-IP Current Condition Start: 01/10/25 08:30 Freq: NEEDED Status: Active Protocol: Document 01/11/25 08:43 LRN (Rec: 01/11/25 09:12 LRN Laptop) Physical Therapy Current Condition Current Condition Evaluation Date 01/11/25 Treatment Diagnosis Weakness, decreased mobility, balance, and activity tolerance Onset Date 01/08/25 M3 PT-IP Subjective Start: 01/10/25 08:30 Freq: NEEDED Status: Active Protocol: Document 01/11/25 08:43 LRN (Rec: 01/11/25 09:12 LRN Laptop) Subjective Physical Therapy Visit Type Type Initial Evaluation Visit Start Time 08:43 Visit Stop Time 09:23 Notes Pt sitting in chair comfortably at start of therapy. Breakfast completed previously. Physical Therapy Visit Comments Patient Comments Pt states she plans to not leave the hospital alive. 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 Patient Goals Prior level of function or not at all. Therapy Pain Assessment Pain When Pain Assessed No pain Location Right Abdomen Intensity 0 Scale Used Numeric (0 - 10) M4 PT-IP Mobility and Gait Start: 01/10/25 08:30 Freq: NEEDED Status: Active Protocol: Document 01/11/25 08:43 LRN (Rec: 01/11/25 09:12 LRN Laptop) PT-Transfer Assessment Sit to and From Stand Sit to and from Contact Guard Assistance,Minimal Assistance Stand Equipment Transfer Assistive Gait Belt,Front Wheeled Walker Device Transfers Transfer Destination Chair Transfer Ability Level of Assist Contact Guard Assistance,Minimal Assistance Comments Mobility Comments At start: HR 120 BP 105/67 O2 97 Gait Assessment Gait Gait Assistance Standby Assistance,Contact Guard Assist Required: Distance (Feet) 60 Able to Maintain Yes Weight Bearing Status During Gait Assistive Devices Assistive Device Gait Belt,Front Wheeled Walker Gait Deviations General Gait Pattern Decreased Stride Length,Decreased Feet Clearance,Narrow Based Gait Factors Limiting Gait Function Factors Limiting Decreased Activity Tolerance Gait Function Comments Gait Comments PT assist was needed for lines. Stair Climbing Assessment Comments Stair Climbing Pt has elevator at her apartment that she doesn't like Comments to use because of claustrophobia complaints, therefore she chooses to use stairs to get into her apartment. She has no stairs inside her apartment. PT-Balance Assessment Sitting Balance and Reactions Static Sitting Good Balance Ability Dynamic Sitting Fair Balance Ability Standing Balance and Reactions Static Standing Good Balance Ability Dynamic Standing Fair Balance Ability Device Used FWW Functional Assessments Other Functional Tests Egress Test Passed. Performed M5 PT-IP Objective Assessments Start: 01/10/25 08:30 Freq: NEEDED Status: Active Protocol: Document 01/11/25 08:43 LRN (Rec: 01/11/25 10:19 LRN Laptop) Orientation Orientation/Cognition Level of Alertness Alert Orientation Name,Age,Month,Date,Year,Day of Week,Place,Situation Language Function No Deficits Noted Ability Safety Awareness Understands Safety Issues Memory Description No Deficits Noted Gross Range of Motion Upper Extremity ROM Assessment Within Functional Limits Impairments Jourdan shoulder flexion 90 deg's Lower Extremity ROM Assessment Within Functional Limits Strength Upper Extremity Strength Assessment Within Functional Limits Elbow Jourdan elbow flexion 3+/5 Lower Extremity Strength Assessment Within Functional Limits Hip R hip flexion 3/5 Knee Jourdan knee flexion 4/5 Sensation Assessment Sensation Light Touch Intact Other Assessments Other Other Assessments See Transfer Assessment for Vitals taken M6 PT-IP Treatment Start: 01/10/25 08:30 Freq: NEEDED Status: Active Protocol: Document 01/11/25 08:43 LRN (Rec: 01/11/25 10:19 LRN Laptop) Physical Therapy Treatment Exercises Exercises Seated Knee Flexion/Extension Other Treatments Other Treatment Standing with FWW/CGA, for UE Jacques Chi movements that Performed the pt was familiar with. Transfer training from chair with use of walker. M7 PT-IP Assessment and Plan Start: 01/10/25 08:30 Freq: NEEDED Status: Active Protocol: Document 01/11/25 08:43 LRN (Rec: 01/11/25 10:19 LRN Laptop) PT Summary Assessment and Plan Potential Rehabilitation Good Potential Status of Condition Evolving at Evaluation Summary Impairments Transfers,Gait,Activity Tolerance Progress Towards Progressing Toward Goals,Slow Progress due to Activity Goals Tolerance Assessment Summary Pt is a 75-year-old female with PMH of metastatic and recurrent breast cancer currently on chemotherapy. Per records review, pt's alcoholism in remission for the last 4 years, anxiety, and hypothyroidism presents with generalized weakness, she had treatment for her recurrent metastatic left breast cancer 15 days ago and since then the patient has had increasing generalized weakness. Today, her strength is generally 4-5/5 except with R hip flexion and jourdan biceps strength 3-4/5 . She is alert and oriented and was sitting at start of therapy in bedside chair. She was able to transfer sit<>stand with min to CGA assist and followed directions very well. She was able to pass the Egress Test showing safety with gait. Her extremity strengthx4 is functional and good, her endurance is limited. Her prognosis is good for physical return to function if she is able to get the rehabilitation needed to improve her strength, and endurance, which would probably best be met at a SNF for rehab setting. She has voiced thoughts of not leaving the hospital alive and would benefit from assessment for possible depression as she is dealing with her other health issues that appear to be affecting her emotionally, as the pt became teary eyed at end of therapy. Goals Bed Mobility Goal Independent Transfer Goal Independent Gait Goal Independent Gait Distance 100 ft Other Goals 48 Stairs Days to Meet Goals 14 Frequency of Treatment Frequency Of Once a Day Treatment Treatment Plan Physical Therapy Bed Mobility Training,Transfer Training,Gait Training, Treatment Plan Therapeutic Exercise,Balance Retraining,Discharge Planning Precautions Other Precautions DO NOT TAKE BLOOD PRESSURE ON LEFT ARM. Weight Bearing Status Weight Bearing Full Weight Bearing Status Recommendations To Nursing Amount of Assist 1 Person Assist Needed Discharge Recommendations PT Discharge SNF Rehab Recommendations Transportation Needs Private Vehicle,Wheelchair/Cabulance at Discharge
[2025-01-11] MEDS: CALCIUM GLUCONATE 9.3 MEQ in SODIUM CHLORIDE 0.9% 50 ML 140 MEQ IV (11:09)
--- NOTE | 2025-01-11 12:55 | OT.IP.EVAL ---
Current Diagnoses Noninfective gastroenteritis and colitis, unspecified (01/09/25) Weakness (01/09/25) Past Medical History (Last Updated 04/03/23 @ 14:24 by Chiquita Larson DO) Anxiety Arthritis Breast cancer, left (2018) Depression Fibroids Hemorrhoids History of alcoholism Skin cancer Thyroid disease Surgical History (Last Updated 05/11/22 @ 13:18 by Sabrina Do RN) History of lumpectomy of left breast (2019) Hx of bilateral breast reduction surgery Occupational Therapy Inpatient Evaluation/Re-Eval M1 OT IP Prior Functional Status Start: 01/11/25 12:39 Freq: Status: Active Protocol: Document 01/11/25 11:20 OZZIE (Rec: 01/11/25 12:54 OZZIE [id number]) Medical Review Prior Functional Status Medical History Yes Reviewed Diet/Fluid Regular Consistency Communication Pt able to make needs known Mobility and Gait Normal, no assistive device needed. Pt reports being active taking [employer], Balance and strength classes and walked daily ~3000 steps. Activities of Daily Independent Living and IADL's Drives independently Works at [employer] 20 hrs/week. Social History Household Members none Living Arrangements Apartment/Condo Number of Floors ( One Floor Floors) Number of Stairs To 48 from garage to condo, pt chooses not to take Enter/Railing? elevator due to not liking to be in confined spaces. Home Environment Standard Height Toilet,Tub/Shower Home Equipment Hand Held Shower,Grab Bars Near Toilet,Grab Bars In Shower Employment Status Shop Helper Employed Additional Social Has walking sticks. History Comment M2 OT-IP Current Condition Start: 01/11/25 12:39 Freq: Status: Active Protocol: Document 01/11/25 11:20 OZZIE (Rec: 01/11/25 12:54 OZZEI [id number]) Occupational Therapy Current Condition Current Condition Evaluation Date 01/11/25 Treatment Diagnosis generalized weakness, gastroenteritis, decreased self care Diagnosis Onset Date 01/09/25 Post Operative Precautions Other Precautions No BP on L UE M3 OT- IP Subjective and Pain Start: 01/11/25 12:39 Freq: Status: Active Protocol: Document 01/11/25 11:20 OZZIE (Rec: 01/11/25 12:54 [facility] [id number]) OT- Subjective Occupational Therapy Visit Type Type Initial Evaluation Visit Start Time 11:20 Visit Stop Time 11:42 Notes Pt was agreeable to participating in OT eval. Occupational Therapy Visit Comments Patient Comments I don't think I can take care of myself alone. I don't think it would be safe for me to shower without someone there. I couldn't drive right now. I'm too weak . Patient/Caregiver To get stronger. Goals OT Pain Assessment Pain Present Pain Present Denied Pain M4 OT- IP ADL's Start: 01/11/25 12:39 Freq: Status: Active Protocol: Document 01/11/25 11:20 OZZIE (Rec: 01/11/25 12:54 [facility] [id number]) OT [id number] Comments OT Self-Feeding not a meal time Comments OT ADL-Grooming General Evaluation Grooming Ability Standby Assistance Areas Needing Retrieving/Set-up of Grooming Items Assistance OT ADL-Oral Care Comments Oral Care Comments pt declined performing at time of eval OT ADL-Dressing General Eval Lower Body Dressing Standby Assistance Ability Areas Needing Socks Assistance OT ADL-Toileting Comments OT Toileting pt declines need to use Comments OT ADL-Bathing Comments OT Bathing Comments not observed, pt is concerned about safely performing on her own. OT recommends purchasing a shower chair or extended tub bench for increased safety and I at home. M5 OT- IP IADL's Start: 01/11/25 12:39 Freq: Status: Active Protocol: Document 01/11/25 11:20 OZZIE (Rec: 01/11/25 12:54 [facility] [id number]) OT-Instrumental Activities of Daily Living Deficits IADL Deficits Deficits Identified Home Safety Awareness Awareness of Need Good Awareness for Assistance at Home Ability to Problem Able to Problem Solve Solve Emergency Situations Home Safety Comments Pt is concerned about performing her IADLs and is unsure if she has anyone she can ask to assist her at home. She has help when she is at work. Medication Management Medication No Deficits Identified Management Money Management Money Management No Deficits Identified Meal Preparation Meal Preparation pt may need assist due to activity intolerance Comments Shop Supervisor Shop Supervisor pt may need assist due to activity intolerance Comments Driving Driving Comments pt may need assist due to activity intolerance M6 OT- IP Functional Cognition Start: 01/11/25 12:39 Freq: Status: Active Protocol: Document 01/11/25 11:20 BELIARODDY (Rec: 01/11/25 12:54 [facility] [id number]) Cognitive Factors Limiting Selfcare Function Cognitive Ability Level of Alertness Alert Patient Orientation Name,Age,Birthday,Month,Date,Year,Day of Week,Place, Situation Attention Span Capable of Focused Attention,Capable of Sustained Ability Attention Ability to Follow Able to Follow One Step Commands,Able to Follow Multi- Commands Step Commands Memory Description No Deficits Noted Safety Awareness No Deficits Noted Problem Solving No deficits Noted Ability OT- Vision and Hearing OT- Hearing Assessment OT- Hearing WFL Assessment OT- Vision Assessment Vision History Blindness Visual Acuity Glasses For Reading Vision Assessment 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 affecting her depth perception Comments M7 OT- IP Mobility and Balance Start: 01/11/25 12:39 Freq: Status: Active Protocol: Document 01/11/25 11:20 BELIAFLORINDABOLIVARDANIEL (Rec: 01/11/25 12:54 [facility] [id number]) OT- Bed Mobility Assessment Supine to Sit Supine to Sit Assist Standby Assistance Scooting Scooting to Edge of Standby Assistance Bed OT-Transfer Assessment Sit to and From Stand Sit to and from Contact Guard Assistance Stand Transfers Transfer Ability Contact Guard Assistance Technique Transfer Destination Chair Transfer Technique Stand Step Pivot Devices Transfer Assistive Gait Belt,Front Wheeled Walker Devices OT- Gait Assessment Gait Gait Assistance Standby Assistance,Contact Guard Assist Required: Distance (Feet) 10 Assistive Devices Assistive Device Gait Belt,Front Wheeled Walker Comments Gait Ability OT manages IV pole while pt amb with FWW. Pt needs vcs Comments for hand placement when during sit<>stand for safety. OT- Balance Assessment Sitting Balance and Reactions Static Sitting Good Balance Ability Dynamic Sitting Fair Balance Ability Standing Balance and Reactions Static Standing Good Balance Ability Dynamic Standing Fair Balance Ability M8 OT- IP Objective Assessments Start: 01/11/25 12:39 Freq: Status: Active Protocol: Document 01/11/25 11:20 BELIAFLORINDABOLIVARDANIEL (Rec: 01/11/25 12:54 [facility] [id number]) OT Gross Range of Motion Upper Extremity Range of Motion Assessment Within Functional Limits OT Strength Upper Extremity Strength Assessment Bilaterally Impaired Shoulder 4 Elbow 4 Hand 5 Hand Trailer Steerer Strength Hand Dominance Left OT Sensation Assessment Edema Edema Present Edema Comments Pts hands and feet appear swollen, pt reports this is a side effect of one of her cancer medications. M9 OT- IP Assessment and Plan Start: 01/11/25 12:39 Freq: Status: Active Protocol: Document 01/11/25 11:20 OZZIE (Rec: 01/11/25 12:54 OZZIE [id number]) OT Summary Assessment and Plan Potential Rehabilitation Excellent Potential Analytic Complexity Low at Evaluation Summary OT Impairments Strength,Balance,Functional Mobility,Grooming,Dressing, Toileting,Bathing,Toilet Transfers,Shower Transfers, Activity Tolerance Progress Towards Progressing Toward Goals Goals Assessment Summary Pt is a 75 yo F who has an ongoing history of metastatic breast cancer. She has had a recent onset of generalized weakness and gastroenteritis for several weeks and has been admitted for care. Pt expresses concerns/fears about dc home by herself. She says she does not have anyone who can be with her all of the time. She is especially concerned with her ability to safely bathe herself and drive herself to work. Pt presents with activity intolerance, decreased BADLs, decreased functional tfs, and muscle weakness. Skilled OT services are appropriate to address these deficits and promote return towards PLOF. Recommend dc home with assist and HH vs SNF. Goals Grooming Goal Independent Dressing Goal Independent Toileting Goal Independent Bathing Goal Independent Toilet Transfer Goal Independent Shower Transfer Goal Independent Days to Meet Goals 5 Frequency of Treatment Other frequency 5x/wk Treatment Plan OT Treatment Plan ADL Training,Functional Mobility,Therapeutic Exercises, Patient/Family Education,Discharge Planning Other Treatment Shower, activity tolerance, standing sink side ADLs Recommendations and Next Treatment Focus Discharge Recommendations OT Discharge Home with Assistance,Home Health,Home vs SNF Recommendations Transportation Needs Private Vehicle,Wheelchair/Cabulance at Discharge
--- NOTE | 2025-01-11 15:59 | CM.DPC ---
DCP COnt: Per MD, anticipate pt might be stable for discharge tomorrow pending her progress. Per PT, pt was able to mobilize but fatigued quickly and needing some assist and pt tearful and recommending SNF. PT also feels pt could benefit from SW discussion around pt's concern with not getting out of the hospital alive. Due to triage needs, unfortunately SW unable to meet bedside with pt today but will follow up closely in AM. Barriers to SNF are pt's insurance if she is ambulating as she was today and pt currently on chemo treatment for her metastatic cancer and would not be able to continue with Oncology Tx while at SNF. JESSICA Sofia
[2025-01-11] MEDS: LACTOBACILLUS ACIDOPHILUS TABLET 1 EACH PO (18:59)
[2025-01-11 20:08] LABS: Blood Urea Nitrogen 10 mg/dL (7-17); Calcium 6.8 mg/dL (8.4-10.2); Carbon Dioxide 20 mmol/L (22-32); Chloride 108 mmol/L (98-107); Estimated Glomerular Filt Rate > 60 mL/min (>60); Glucose 151 mg/dL (70-99); HEMOLYSIS < 15 (0-50); Potassium 3.4 mmol/L (3.4-5.1); Sodium 131 mmol/L (137-145)
[2025-01-12] VITALS (7 sets, daily range): BP systolic 97–166; BP diastolic 52–89; PULSE 68–111; RESP 15–20; TEMP 36.3–36.9; O2SAT 92–99
[2025-01-12] MEDS: PIPERACILLIN/TAZO 3.375 GM in SODIUM CHLORIDE 0.9% 100 ML IV ×3 (01:33→17:07)
[2025-01-12] MEDS: SODIUM CHLORIDE 0.9% 1,000 ML 100 ML IV ×2 (01:33→17:17)
[2025-01-12] MEDS: LOPERAMIDE 2 MG CAPSULE PO ×3 (04:28→21:26)
[2025-01-12 06:10] LABS: Blood Urea Nitrogen 9 mg/dL (7-17); Calcium 6.6 mg/dL (8.4-10.2); Carbon Dioxide 21 mmol/L (22-32); Chloride 110 mmol/L (98-107); Estimated Glomerular Filt Rate > 60 mL/min (>60); Glucose 115 mg/dL (70-99); HEMOLYSIS < 15 (0-50); Magnesium 1.5 mg/dL (1.6-2.3); Potassium 2.8 mmol/L (3.4-5.1); Sodium 133 mmol/L (137-145)
[2025-01-12] MEDS: LEVOTHYROXINE 125 MCG TABLET 62.5 MCG PO (06:24)
[2025-01-12] MEDS: POTASSIUM CHLORIDE 20 MEQ/15 ML UDC 40 MEQ PO ×2 (06:50→13:57)
--- NOTE | 2025-01-12 07:57 | P.PN_ITS ---
Subjective Subjective Date Patient Seen: 01/11/25 Interval history: Patient is seen 01/11/2025: Chief complaint: Generalized weakness and leukopenia post chemotherapy History of present illness: 01/10: (per nocturnal physician) 75-year-old female with past medical history of metastatic and recurrent breast cancer currently on chemotherapy, alcoholism in remission for the last 4 years, anxiety, and hypothyroidism presents with generalized weakness. Per the patient report the patient had treatment for her recurrent metastatic left breast cancer 14 days ago. Since then the patient has had increasing generalized weakness. The patient however denies any recent fever, chills, nausea, vomiting, diarrhea, chest pain or shortness of breath. Denies any dysuria or coughing. When EMS arrived the patient was found to be slightly hypotensive and IV fluid bolus was given. In the emergency room, the patient was having low normal blood pressure with initial blood pressure 109/55. The patient however was saturating well on room air without any signs of fever. Labs shows a WBC of 2.8 potassium 3.3 sodium 130 and the rest are relatively benign with negative viral respiratory panel. Lactate is also normal. The patient was initially given vancomycin and Zosyn due to concern of sepsis with hypotension. The patient was in sinus tachycardic with heart rate in the [address] angio of the chest shows no PE and chest x-ray shows no acute finding. CT scan of the abdomen shows enteritis versus possible early partial small bowel obstruction. General surgeon Dr. Urena was consulted who agreed that the patient should be admitted for medical management and will see the patient in the morning. Hospital course: 01/10: White blood cell count de-escalated slightly to 2.1 overnight patient has not had any fevers or chills abdominal pain nausea vomiting or diarrhea no cough 01/11: White blood cell count increased to 3.6 patient however is having diarrhea but is feeling a bit stronger tolerating diet calcium still low and potassium was also low at 2 point IV replacement ordered with resultant correction of potassium to 3.4 and calcium to 6.8 Review of systems: As above No headache diplopia blurred vision No changes In level of consciousness no paresthesia paresis Physical examination: Very fatigued ill appearing elderly female but less fatigued in yesterday HEENT unremarkable oropharynx without lesions Neck no adenopathy Heart rate and rhythm regular Lungs clear no rales Abdomen nondistended nontender bowel sounds present Extremities no edema Assessment and plan Enteritis with possible early small obstruction but clinical picture favors ileus. * Resume doses of Zosyn today * Repletion of calcium and potassium intravenously Generalized weakness. * Likely due to dehydration as above. Dehydration. * IV fluid. Leukopenic. Likely related to recent chemotherapy. * Improving zeinab at 2.1 now 3.6 Anxiety. * Resume home medication. Hypothyroidism. * Resume home Synthroid. DVT prophylaxis * Heparin subcu. CODE STATUS * DNR/DNI. Disposition * Likely home tomorrow Time based billing: * 35 minutes were involved evaluating this patient's pruning ares-kq-ywoc evaluation physical examination review of medical records review of objective laboratory and imaging findings discussion with patient and family Exam Vital Signs (past 8 hours): - 01/12/25 02:00 01/12/25 03:00 01/12/25 04:00 Temperature 97.9 F 98.0 F Pulse Rate 95 H 96 H Respiratory Rate 20 20 Blood Pressure 98/52 L 97/54 L Pulse Oximetry 92 93 97 Oxygen Flow Rate 0 2 2 Fraction of Inspired Oxygen 28 SaO2/FiO2 Ratio 353 Oxygen Delivery Method Room Air Oxygen Flow Rate 2 Objective Labs 01/11/25 08:15 01/12/25 05:44 Labs: Laboratory Results - last 24 hr 01/11/25 01/11/25 01/12/25 08:15 19:40 05:44 WBC 3.6 L D RBC 2.90 L Hgb 10.5 L Hct 30.8 L MCV 106.2 H MCH 36.0 H MCHC 33.9 RDW 16.9 H Plt Count 172 Neut % (Auto) 76.2 H Lymph % (Auto) 4.1 L [place] % (Auto) 16.9 H Eos % (Auto) 2.4 Baso % (Auto) 0.4 Neut # (Auto) 2700 Lymph # (Auto) 100 L [place] # (Auto) 600 Eos # (Auto) 100 Baso # (Auto) 0 Sodium 134 L 131 L 133 L Potassium 2.7 L* 3.4 2.8 L Chloride 110 H 108 H 110 H Carbon Dioxide 23 20 L 21 L BUN 12 10 9 Creatinine 0.46 L 0.50 L 0.50 L Estimated GFR > 60 > 60 > 60 BUN/Creatinine Ratio 26.1 H 20.0 18.0 Glucose 139 H 151 H 115 H Calcium 6.3 L* 6.8 L 6.6 L Magnesium 1.5 L Total Bilirubin 0.6 AST 39 H ALT 18 Alkaline Phosphatase 105 Total Protein 4.0 L Albumin 1.8 L Globulin 2.2 Albumin/Globulin Ratio 0.8 L PFSH Medical History (Updated 01/09/25 @ 22:20 by Navid Silverman DO) History of alcoholism Arthritis Depression Anxiety Hemorrhoids Fibroids Skin cancer Thyroid disease Breast cancer, left (2019) Surgical History (Updated 06/07/22 @ 12:48 by Esther Loaiza MD) Hx of bilateral breast reduction surgery History of lumpectomy of left breast (2019) Social History household members: other Smoking Status: Never smoker alcohol intake: former substance use type: does not use Assessment & Plan Time-Based Coding :: [TOTAL MINUTES] spent with patient and on the chart (including review of chart, obtaining history, exam, reviewing outside data, placing orders, documenting exam and treatment plan, and counseling patient) on [DATE].
[2025-01-12] MEDS: CALCIUM GLUCONATE 9.3 MEQ in SODIUM CHLORIDE 0.9% 50 ML 140 MEQ IV (08:23)
[2025-01-12] MEDS: MAGNESIUM CHLORIDE 64 MG TABLET 128 MG PO (08:23)
[2025-01-12] MEDS: LACTOBACILLUS ACIDOPHILUS TABLET 1 EACH PO (08:23)
[2025-01-12] MEDS: HEPARIN 5,000 UNIT/ML VIAL 5000 UNIT SUBCUT (08:23)
--- NOTE | 2025-01-12 10:40 | P.DS_ITS ---
History of Present Illness History of Present Illness Date Patient Seen: 01/13/25 Chief complaint: Generalized weakness leukopenia post chemotherapy Narrative: Chief complaint: Generalized weakness and leukopenia post chemotherapy History of present illness: 01/10: (per nocturnal physician) 75-year-old female with past medical history of metastatic and recurrent breast cancer currently on chemotherapy, alcoholism in remission for the last 4 years, anxiety, and hypothyroidism presents with generalized weakness. Per the patient report the patient had treatment for her recurrent metastatic left breast cancer 14 days ago. Since then the patient has had increasing generalized weakness. The patient however denies any recent fever, chills, nausea, vomiting, diarrhea, chest pain or shortness of breath. Denies any dysuria or coughing. When EMS arrived the patient was found to be slightly hypotensive and IV fluid bolus was given. In the emergency room, the patient was having low normal blood pressure with initial blood pressure 109/55. The patient however was saturating well on room air without any signs of fever. Labs shows a WBC of 2.8 potassium 3.3 sodium 130 and the rest are relatively benign with negative viral respiratory panel. Lactate is also normal. The patient was initially given vancomycin and Zosyn due to concern of sepsis with hypotension. The patient was in sinus tachycardic with heart rate in the [address] angio of the chest shows no PE and chest x-ray shows no acute finding. CT scan of the abdomen shows enteritis versus possible early partial small bowel obstruction. General surgeon Dr. Urena was consulted who agreed that the patient should be admitted for medical management and will see the patient in the morning. Hospital course: 01/10: White blood cell count de-escalated slightly to 2.1 overnight patient has not had any fevers or chills abdominal pain nausea vomiting or diarrhea no cough 01/11: White blood cell count increased to 3.6 patient however is having diarrhea but is feeling a bit stronger tolerating diet calcium still low and potassium was also low at 2 point IV replacement ordered with resultant correction of potassium to 3.4 and calcium to 6.8 01/12: Potassium dropped to 2.8 calcium stable at 6.6 magnesium low at 1.5 patient is feeling very fatigued weak discussed discharge planning we will replace magnesium calcium intravenously potassium orally today plan for possible discharge at 3:30 a.m. this afternoon case management to coordinate supportive measures at home and home health care 01/13: Magnesium potassium sodium and calcium all came back at normal range disposition and change patient wants to go to rehab and also wants to have a visit with hospice Review of systems: As above No headache diplopia blurred vision No changes In level of consciousness no paresthesia paresis Physical examination: Very fatigued ill appearing elderly female HEENT unremarkable oropharynx without lesions Neck no adenopathy Heart rate and rhythm regular Lungs clear no rales Abdomen nondistended nontender bowel sounds present Extremities no edema Assessment and plan Enteritis with possible early small obstruction but clinical picture favors ileus. * No diarrhea in 12 hours * Replacing magnesium potassium and calcium * Possible discharge this afternoon Generalized weakness. * Likely due to dehydration as above. Dehydration. * IV fluid. Leukopenic. Likely related to recent chemotherapy. * White blood cell count improving Anxiety. * Resume home medication. Hypothyroidism. * Resume home Synthroid. DVT prophylaxis * Heparin subcu. CODE STATUS * DNR/DNI. Disposition * Acute rehab and hospice services Time based billing: * 35 minutes were involved evaluating this patient's pruning nylp-ss-azsy evaluation physical examination review of medical records review of objective laboratory and imaging findings discussion with patient and family Discharge Providers Provider Date of admission: 01/09/25 22:47 Discharge Date: 01/12/25 Primary care physician: Chiquita Larson DO Consults: 01/09/25 22:48 Consult to Occupational Therapy Evaluate & Treat Comment: Physician Instructions: Evaluate and treat Consult to Physical Therapy Evaluate & Treat Comment: Physician Instructions: Evaluate and Treat 01/10/25 10:33 Consult to Pharmacy Routine Comment: fall risk 01/11/25 15:55 Consult to Pharmacy Routine Comment: fall risk Discharge provider: Jens Petit MD Exam Vital Signs (past 8 hours): - 01/12/25 03:00 01/12/25 04:00 01/12/25 08:57 Temperature 98.0 F 98.5 F Pulse Rate 96 H 98 H Respiratory Rate 20 18 Blood Pressure 97/54 L 106/68 Pulse Oximetry 93 97 98 Oxygen Flow Rate 2 2 0 Fraction of Inspired Oxygen 28 SaO2/FiO2 Ratio 353 Oxygen Delivery Method Room Air Oxygen Flow Rate 0 Objective Labs 01/11/25 08:15 01/13/25 04:30 Labs: Laboratory Results - last 24 hr 01/11/25 01/12/25 19:40 05:44 Sodium 131 L 133 L Potassium 3.4 2.8 L Chloride 108 H 110 H Carbon Dioxide 20 L 21 L BUN 10 9 Creatinine 0.50 L 0.50 L Estimated GFR > 60 > 60 BUN/Creatinine Ratio 20.0 18.0 Glucose 151 H 115 H Calcium 6.8 L 6.6 L Magnesium 1.5 L PFSH Medical History (Updated 01/09/25 @ 22:20 by Navid Silverman DO) History of alcoholism Arthritis Depression Anxiety Hemorrhoids Fibroids Skin cancer Thyroid disease Breast cancer, left (2019) Surgical History (Updated 06/07/22 @ 12:48 by Esther Loaiza MD) Hx of bilateral breast reduction surgery History of lumpectomy of left breast (2019) Social History household members: other Smoking Status: Never smoker alcohol intake: former substance use type: does not use Discharge Plan Discharge Plan Patient Disposition: Home Discharge orders & Medications Prescriptions: New loperamide 2 mg Capsule 2 mg PO Q6H PRN (Reason: Diarrhea) Qty: 10 0RF potassium chloride [Klor-Con M20] 20 mEq Tablet,Er Particles/Crystals 40 meq PO BIDWM Qty: 6 0RF magnesium oxide 500 mg capsule 500 mg PO BID Qty: 10 0RF calcium carbonate 400 mg calcium (1,000 mg) tablet,chewable 400 mg PO BID Qty: 10 0RF Continued alprazolam 1 mg tablet 1 mg PO Q6H PRN (Reason: anxiety) Rx Instructions: as needed prior to MRI olanzapine 5 mg tablet 5 mg PO ONCE PM capecitabine 500 mg tablet 500 mg PO .COMPLEX Rx Instructions: 500 mg orally; lidocaine-prilocaine 2.5-2.5 % cream See Rx Instructions topical .COMPLEX Rx Instructions: topically once every 3 weeks; metronidazole 0.75 % gel 1 applic topical BID levothyroxine 125 mcg tablet 62.5 mcg PO DAILY Qty: 45 1RF Rx Instructions: Take one half tablet by mouth once a day allopurinol 100 mg tablet 100 mg PO DAILY Qty: 90 1RF zoledronic acid 4 mg/5 mL solution 4 mg IV .q3 mos Rx Instructions: administer over at least 15 mins calcium carb-mag hydrox-simeth 1,000-200-40 mg tablet,chewable 1 tab PO DAILY acetaminophen [Tylenol] 325 mg Capsule 325 mg PO QID PRN (Reason: Pain (Scale Score 4-6)) Follow up/Referrals: Chiquita Larson DO [Primary Care Provider, Family Practice] Visit Report/Discharge Packet Stand Alone Forms: Patient Portal/API, Stroke Signs & Symptoms Discharge Data Primary Care Provider: Chiquita Larson
--- NOTE | 2025-01-12 10:45 | OT.IPNOTE ---
Pt not wanting to get up for OT today but agreed to have home health and bath aid at home.
[2025-01-12] MEDS: MAGNESIUM SULFATE 2 GM/50 ML PIGGYBACK IV (11:04)
--- NOTE | 2025-01-12 16:02 | CM.DPNOTE ---
DCP Continued: Reviewed EMR and team rounds for pt?s medical status. Per hospitalist, patient requiring magnesium and calcium treatment this afternoon but should be medically cleared for discharge. Per OT, pt fatigued to do treatment today but agreeable to home health recommendation for bath aide. LINK WIRE FABRIC MACHINE TENDER entered room, pt found to be fatigued and appearing weak. Pt states she had a bowel movement this morning and [she] does not feel safe with discharging home in this state. I don't want to put myself or anyone else like my son in a bad predicament. Pt requested to stay one more night and will feel better with discharge tomorrow as well as the following referrals for additional support. Pt has cancelled her appt with [facility] on 01/13 due to her weakness and will reschedule at later date. LINK WIRE FABRIC MACHINE TENDER discussed home health, pt agreeable to referral. Reviewed [facility] choice list and pt did not identify a preference. LINK WIRE FABRIC MACHINE TENDER sent referral to [facility] with signed MD orders, pending acceptance and start of care early next week. Pt stated she would be interested in a Hospice of the referral for an informational visit. Pt states she would like to speak with Oncologist at [facility] before electing into Hospice but would like to speak with Hospice to get more information. LINK WIRE FABRIC MACHINE TENDER sent referral and request for informational visit on pt's behalf via fax. LINK WIRE FABRIC MACHINE TENDER updated pt RN and hospitalist of above conversation. Plan: Anticipating dc home with home health and possible Hospice follow up. CM Team will continue to follow for coordination of discharge plans. CYNTHIA Brown
[2025-01-12] MEDS: POTASSIUM CHLORIDE 20 MEQ TAB 40 MEQ PO (17:08)
--- NOTE | 2025-01-12 18:02 | P.PN_ITS ---
Subjective Subjective Date Patient Seen: 01/12/25 Interval history: Chief complaint: Generalized weakness and leukopenia post chemotherapy History of present illness: 01/10: (per nocturnal physician) 75-year-old female with past medical history of metastatic and recurrent breast cancer currently on chemotherapy, alcoholism in remission for the last 4 years, anxiety, and hypothyroidism presents with generalized weakness. Per the patient report the patient had treatment for her recurrent metastatic left breast cancer 14 days ago. Since then the patient has had increasing generalized weakness. The patient however denies any recent fever, chills, nausea, vomiting, diarrhea, chest pain or shortness of breath. Denies any dysuria or coughing. When EMS arrived the patient was found to be slightly hypotensive and IV fluid bolus was given. In the emergency room, the patient was having low normal blood pressure with initial blood pressure 109/55. The patient however was saturating well on room air without any signs of fever. Labs shows a WBC of 2.8 potassium 3.3 sodium 130 and the rest are relatively benign with negative viral respiratory panel. Lactate is also normal. The patient was initially given vancomycin and Zosyn due to concern of sepsis with hypotension. The patient was in sinus tachycardic with heart rate in the [address] angio of the chest shows no PE and chest x-ray shows no acute finding. CT scan of the abdomen shows enteritis versus possible early partial small bowel obstruction. General surgeon Dr. Urena was consulted who agreed that the patient should be admitted for medical management and will see the patient in the morning. Hospital course: 01/10: White blood cell count de-escalated slightly to 2.1 overnight patient has not had any fevers or chills abdominal pain nausea vomiting or diarrhea no cough 01/11: White blood cell count increased to 3.6 patient however is having diarrhea but is feeling a bit stronger tolerating diet calcium still low and potassium was also low at 2 point IV replacement ordered with resultant correction of potassium to 3.4 and calcium to 6.8 01/12: Still hyponatremic having to and with low magnesium still replacing IV probable discharge tomorrow Review of systems: As above No headache diplopia blurred vision No changes In level of consciousness no paresthesia paresis Physical examination: Very fatigued ill appearing elderly female but less fatigued in yesterday HEENT unremarkable oropharynx without lesions Neck no adenopathy Heart rate and rhythm regular Lungs clear no rales Abdomen nondistended nontender bowel sounds present Extremities no edema Assessment and plan Enteritis with possible early small obstruction but clinical picture favors ileus. * Resume doses of Zosyn today * Repletion of calcium and potassium intravenously Generalized weakness. * Likely due to dehydration as above. Dehydration. * IV fluid. Leukopenic. Likely related to recent chemotherapy. * Improving zeinab at 2.1 now 3.6 Anxiety. * Resume home medication. Hypothyroidism. * Resume home Synthroid. DVT prophylaxis * Heparin subcu. CODE STATUS * DNR/DNI. Disposition * Likely home tomorrow Time based billing: * 35 minutes were involved evaluating this patient's pruning [id number] evaluation physical examination review of medical records review of objective laboratory and imaging findings discussion with patient and family Exam Vital Signs (past 8 hours): - 01/12/25 12:00 Temperature 97.3 F L Pulse Rate 105 H Respiratory Rate 17 Blood Pressure 166/89 H Pulse Oximetry 99 Oxygen Flow Rate 0 Fraction of Inspired Oxygen 28 SaO2/FiO2 Ratio 353 Oxygen Delivery Method Room Air Oxygen Flow Rate 0 Objective Labs 01/11/25 08:15 01/12/25 05:44 Labs: Laboratory Results - last 24 hr 01/11/25 01/12/25 01/12/25 19:40 05:44 17:49 Sodium 131 L 133 L Potassium 3.4 2.8 L Cancelled Chloride 108 H 110 H Carbon Dioxide 20 L 21 L BUN 10 9 Creatinine 0.50 L 0.50 L Estimated GFR > 60 > 60 BUN/Creatinine Ratio 20.0 18.0 Glucose 151 H 115 H Calcium 6.8 L 6.6 L Magnesium 1.5 L PFS Medical History (Updated 01/09/25 @ 22:20 by Navid Silverman DO) History of alcoholism Arthritis Depression Anxiety Hemorrhoids Fibroids Skin cancer Thyroid disease Breast cancer, left (2019) Surgical History (Updated 06/07/22 @ 12:48 by Esther Loaiza MD) Hx of bilateral breast reduction surgery History of lumpectomy of left breast (2019) Social History household members: other Smoking Status: Never smoker alcohol intake: former substance use type: does not use Assessment & Plan Time-Based Coding :: [TOTAL MINUTES] spent with patient and on the chart (including review of chart, obtaining history, exam, reviewing outside data, placing orders, documenting exam and treatment plan, and counseling patient) on [DATE].
[2025-01-12 18:11] LABS: Alanine Aminotransferase 19 IU/L (<35); Albumin 1.9 g/dL (3.5-5.0); Albumin Globulin Ratio 0.9 (1.0-2.8); Alkaline Phosphatase 156 U/L (38-126); Blood Urea Nitrogen 9 mg/dL (7-17); Calcium 7.3 mg/dL (8.4-10.2); Carbon Dioxide 20 mmol/L (22-32); Chloride 111 mmol/L (98-107); Estimated Glomerular Filt Rate > 60 mL/min (>60); Globulin 2.1 g/dL (1.7-4.1); Glucose 126 mg/dL (70-99); HEMOLYSIS < 15 (0-50); Potassium 4.0 mmol/L (3.4-5.1); Sodium 134 mmol/L (137-145); Total Protein 4.0 g/dL (6.3-8.2)
[2025-01-13] MEDS: PIPERACILLIN/TAZO 3.375 GM in SODIUM CHLORIDE 0.9% 100 ML IV ×3 (02:03→17:28)
[2025-01-13] MEDS: SODIUM CHLORIDE 0.9% 1,000 ML 100 ML IV ×2 (04:42→20:45)
[2025-01-13 05:07] LABS: Alanine Aminotransferase 18 IU/L (<35); Albumin 1.9 g/dL (3.5-5.0); Albumin Globulin Ratio 0.9 (1.0-2.8); Alkaline Phosphatase 120 U/L (38-126); Blood Urea Nitrogen 9 mg/dL (7-17); Calcium 6.9 mg/dL (8.4-10.2); Carbon Dioxide 18 mmol/L (22-32); Chloride 113 mmol/L (98-107); Estimated Glomerular Filt Rate > 60 mL/min (>60); Globulin 2.1 g/dL (1.7-4.1); Glucose 107 mg/dL (70-99); HEMOLYSIS < 15 (0-50); Magnesium 1.9 mg/dL (1.6-2.3); Potassium 4.0 mmol/L (3.4-5.1); Sodium 135 mmol/L (137-145); Total Protein 4.0 g/dL (6.3-8.2)
[2025-01-13 06:00] VITALS: BP 115/56; PULSE 82; RESP 17; TEMP 36.7; O2SAT 95
[2025-01-13] MEDS: LEVOTHYROXINE 125 MCG TABLET 62.5 MCG PO (06:28)
[2025-01-13] MEDS: LACTOBACILLUS ACIDOPHILUS TABLET 1 EACH PO (08:21)
[2025-01-13] MEDS: POTASSIUM CHLORIDE 20 MEQ TAB 40 MEQ PO ×2 (08:21→17:28)
[2025-01-13] MEDS: HEPARIN 5,000 UNIT/ML VIAL 5000 UNIT SUBCUT ×2 (08:21→20:45)
--- NOTE | 2025-01-13 09:37 | PT.IPTN ---
Current Diagnoses Malignant neoplasm of unspecified site of unspecified female breast (01/09/25) Decreased white blood cell count, unspecified (01/09/25) Noninfective gastroenteritis and colitis, unspecified (01/09/25) Tachycardia, unspecified (01/09/25) Weakness (01/09/25) Physical Therapy Treatment Note M2 PT-IP Current Condition Start: 01/10/25 08:30 Freq: NEEDED Status: Active Protocol: Document 01/13/25 09:12 SP (Rec: 01/13/25 10:03 SP Laptop) Physical Therapy Current Condition Current Condition Evaluation Date 01/11/25 Treatment Diagnosis Weakness, decreased mobility, balance, and activity tolerance Onset Date 01/08/25 M3 PT-IP Subjective Start: 01/10/25 08:30 Freq: NEEDED Status: Active Protocol: Document 01/13/25 09:12 SP (Rec: 01/13/25 10:03 SP Laptop) Subjective Physical Therapy Visit Type Type Treatment Note Visit Start Time 09:12 Visit Stop Time 09:37 Notes Vitals: seated RUE BP 122/77 HR 108 SaO2 97% on RA pre mobility Friend (retired nurse) in room, observed tx and gave feedback as needed per pt request to support explanation pt wants. Number of PRICING ASSOCIATE Visits 1 Physical Therapy Visit Comments Patient Comments Pt agreeable to working with therapy. Patient Goals going to SNF for progression with mobility M4 PT-IP Mobility and Gait Start: 01/10/25 08:30 Freq: NEEDED Status: Active Protocol: Document 01/13/25 09:12 SP (Rec: 01/13/25 10:03 SP Laptop) PT-Transfer Assessment Sit to and From Stand Sit to and from Standby Assistance,Contact Guard Assistance,1 Person Stand Assistance,Use of Upper Extremities Equipment Transfer Assistive Gait Belt,Front Wheeled Walker Device Transfers Transfer Destination Chair Transfer Technique ambulated with FWW Transfer Ability Level of Assist Standby Assistance,Contact Guard Assistance,Use of Upper Extremities Comments Mobility Comments Pt up in chair, friend (retired nurse) in room when arrived. Cues for pushing from chair to support into standing, due to noted weakness with out UE support. Hospitalist arrived once pt in standing, pt stood approx 5 min with FWW support. Gait around room no AD little unsteady but no LOB CG, CG/close SBA with FWW support endurance further distance into hallway (rm [id number] <>staff break room) approx 120 ft total before returning to chair in room, PRICING ASSOCIATE managing IV pole. Pt improved but reports continued low endurance during mobility. Pt doesn't have the endurance to perform stair management has to enter home at this time, 48+. Is reports is claustrophobia and unable to utilize apartment complex elevator. PRICING ASSOCIATE recommending SNF at this time, to support strength and balance activity pt can tolerate and is motiviated to work on at this time for the time she has. Gait Assessment Gait Gait Assistance Standby Assistance,Contact Guard Assist Required: Distance (Feet) 120 Able to Maintain Yes Weight Bearing Status During Gait Assistive Devices Assistive Device Gait Belt,Front Wheeled Walker Gait Deviations General Gait Pattern Antalgic,Decreased Stride Length,Decreased Feet Clearance,Narrow Based Gait Factors Limiting Gait Function Factors Limiting Decreased Activity Tolerance,Decreased Strength,Poor Gait Function Safety Awareness Comments Gait Comments PRICING ASSOCIATE assists IV Pole, see mobility comments Stair Climbing Assessment Comments Stair Climbing Pt has elevator at her apartment that she doesn't like Comments to use because of claustrophobia complaints, therefore she chooses to use her 48+ stairs to get into her apartment. Unable to assess at this time, due to decreased strength and endurance at this time. She has no stairs inside her apartment once there. PT-Balance Assessment Sitting Balance and Reactions Static Sitting Normal Balance Ability Dynamic Sitting Good Balance Ability Standing Balance and Reactions Static Standing Normal Balance Ability Dynamic Standing Good Balance Ability Device Used FWW, Fair with AD (CGA) M5 PT-IP Objective Assessments Start: 01/10/25 08:30 Freq: NEEDED Status: Active Protocol: Document 01/11/25 08:43 LRN (Rec: 01/11/25 10:19 LRN Laptop) Orientation Orientation/Cognition Level of Alertness Alert Orientation Name,Age,Month,Date,Year,Day of Week,Place,Situation Language Function No Deficits Noted Ability Safety Awareness Understands Safety Issues Memory Description No Deficits Noted Gross Range of Motion Upper Extremity ROM Assessment Within Functional Limits Impairments Juancarlos shoulder flexion 90 deg's Lower Extremity ROM Assessment Within Functional Limits Strength Upper Extremity Strength Assessment Within Functional Limits Elbow Juancarlos elbow flexion 3+/5 Lower Extremity Strength Assessment Within Functional Limits Hip R hip flexion 3/5 Knee Juancarlos knee flexion 4/5 Sensation Assessment Sensation Light Touch Intact Other Assessments Other Other Assessments See Transfer Assessment for Vitals taken M6 PT-IP Treatment Start: 01/10/25 08:30 Freq: NEEDED Status: Active Protocol: Document 01/13/25 09:12 SP (Rec: 01/13/25 10:03 SP Laptop) Physical Therapy Treatment Other Treatments Other Treatment Education safety and endurance support, recommend FWW Performed for support and staff with her for safety, pt in agreement. M7 PT-IP Assessment and Plan Start: 01/10/25 08:30 Freq: NEEDED Status: Active Protocol: Document 01/13/25 09:12 SP (Rec: 01/13/25 10:03 SP Laptop) PT Summary Assessment and Plan Potential Rehabilitation Good Potential Status of Condition Evolving at Evaluation Summary Impairments Transfers,Gait,Activity Tolerance Progress Towards Progressing Toward Goals,Slow Progress due to Activity Goals Tolerance Assessment Summary Pt is a 75-year-old female with PMH of metastatic and recurrent breast cancer currently on chemotherapy. Per records review, pt's alcoholism in remission for the last 4 years, anxiety, and hypothyroidism presents with generalized weakness, she had treatment for her recurrent metastatic left breast cancer 15 days ago and since then the patient has had increasing generalized weakness. Today, Pt improved CG/closeSBA with FWW, CGA with no AD needed for stability, gait further distance into hallway approx 120 ft total before tires, decreased strength to assess stair mgt, has 48+ to get to apartment. PRICING ASSOCIATE recommending and pt in agreement would like to go to a SNF for progression strength, balance and endurance to keep up her mobility as long as she has at this time. Goals Bed Mobility Goal Independent Transfer Goal Independent Gait Goal Independent Gait Distance 100 ft Other Goals 48 Stairs Days to Meet Goals 14 Frequency of Treatment Frequency Of Once a Day Treatment Treatment Plan Physical Therapy Bed Mobility Training,Transfer Training,Gait Training, Treatment Plan Therapeutic Exercise,Balance Retraining,Discharge Planning Other bed mobility, transfers and gait with her personal PF Recommendations and 4WW, balance activities. Next Treatment Focus Precautions Other Precautions No BP on L UE Weight Bearing Status Weight Bearing Full Weight Bearing Status Recommendations To Nursing Amount of Assist Standby Assistance,1 Person Assist Needed Discharge Recommendations PT Discharge SNF Rehab Recommendations Transportation Needs Private Vehicle,Wheelchair/Cabulance at Discharge - PT assist 1
--- NOTE | 2025-01-13 11:30 | OT.IP.TRT ---
Current Diagnoses Malignant neoplasm of unspecified site of unspecified female breast (01/09/25) Decreased white blood cell count, unspecified (01/09/25) Noninfective gastroenteritis and colitis, unspecified (01/09/25) Tachycardia, unspecified (01/09/25) Weakness (01/09/25) Occupational Therapy Treatment Note M2 OT-IP Current Condition Start: 01/11/25 12:39 Freq: Status: Active Protocol: Document 01/11/25 11:20 OZZIE (Rec: 01/11/25 12:54 BELIASCEVAN [id number]) Occupational Therapy Current Condition Current Condition Evaluation Date 01/11/25 Treatment Diagnosis generalized weakness, gastroenteritis, decreased self care Diagnosis Onset Date 01/09/25 Post Operative Precautions Other Precautions No BP on L UE M3 OT- IP Subjective and Pain Start: 01/11/25 12:39 Freq: Status: Active Protocol: Document 01/13/25 11:42 [facility] (Rec: 01/13/25 11:50 [facility] Desktop) OT- Subjective Occupational Therapy Visit Type Type Treatment Note Visit Start Time 11:15 Visit Stop Time 11:30 Occupational Therapy Visit Comments Patient Comments Pt agreed to get up to brush her teeth. Patient/Caregiver TO get stronger. Goals M4 OT- IP ADL's Start: 01/11/25 12:39 Freq: Status: Active Protocol: Document 01/13/25 11:42 [facility] (Rec: 01/13/25 11:50 [facility] Desktop) OT ADL-Grooming General Evaluation Grooming Ability Standby Assistance OT ADL-Oral Care General Eval Oral Care Ability Standby Assistance OT ADL-Toileting Comments OT Toileting Pt states used the toilet prior. Comments M5 OT- IP IADL's Start: 01/11/25 12:39 Freq: Status: Active Protocol: Document 01/11/25 11:20 OZZIE (Rec: 01/11/25 12:54 BELIASCEVAN [id number]) OT-Instrumental Activities of Daily Living Deficits IADL Deficits Deficits Identified Home Safety Awareness Awareness of Need Good Awareness for Assistance at Home Ability to Problem Able to Problem Solve Solve Emergency Situations Home Safety Comments Pt is concerned about performing her IADLs and is unsure if she has anyone she can ask to assist her at home. She has help when she is at work. Medication Management Medication No Deficits Identified Management Money Management Money Management No Deficits Identified Meal Preparation Meal Preparation pt may need assist due to activity intolerance Comments Manager Mobility Manager Mobility pt may need assist due to activity intolerance Comments Driving Driving Comments pt may need assist due to activity intolerance M6 OT- IP Functional Cognition Start: 01/11/25 12:39 Freq: Status: Active Protocol: Document 01/13/25 11:42 [facility] (Rec: 01/13/25 11:50 [facility] Desktop) Cognitive Factors Limiting Selfcare Function Cognitive Comments Cognitive Assessment Pt very tearful and upset of the thought of going home Comments due to bothersome/harassing neighbor. Not able to find case management but able to leave a note for CM. M7 OT- IP Mobility and Balance Start: 01/11/25 12:39 Freq: Status: Active Protocol: Document 01/13/25 11:42 [facility] (Rec: 01/13/25 11:50 [facility] Desktop) OT-Transfer Assessment Sit to and From Stand Sit to and from Standby Assistance Stand Transfers Transfer Ability Standby Assistance Technique Transfer Destination Chair Transfer Technique Stand Step Pivot Devices Transfer Assistive Gait Belt,Front Wheeled Walker Devices OT- Gait Assessment Comments Gait Ability Pt able to use the FWW to and from the recliner to sink Comments with SBA but get very SOB afterwards and needing several minutes to recover. M8 OT- IP Objective Assessments Start: 01/11/25 12:39 Freq: Status: Active Protocol: Document 01/11/25 11:20 OZZIE (Rec: 01/11/25 12:54 OZZIE [id number]) OT Gross Range of Motion Upper Extremity Range of Motion Assessment Within Functional Limits OT Strength Upper Extremity Strength Assessment Bilaterally Impaired Shoulder 4 Elbow 4 Hand 5 Hand Baker Strength Hand Dominance Left OT Sensation Assessment Edema Edema Present Edema Comments Pts hands and feet appear swollen, pt reports this is a side effect of one of her cancer medications. M9 OT- IP Assessment and Plan Start: 01/11/25 12:39 Freq: Status: Active Protocol: Document 01/13/25 11:42 [facility] (Rec: 01/13/25 11:50 [facility] Desktop) OT Summary Assessment and Plan Potential Rehabilitation Excellent Potential Analytic Complexity Low at Evaluation Summary OT Impairments Strength,Balance,Functional Mobility,Grooming,Dressing, Toileting,Bathing,Toilet Transfers,Shower Transfers, Activity Tolerance Assessment Summary Pt doing better and able to get to the sink and back to the recliner to brush her teeth with SBA. Pt still decreased activity tolerance and needing several minutes to recover. Pt was tearful today as telling OT about her bothersome/harassing neighbor and that she is scared to go home. Able to leave a note for CM of pt's concerns. Pt will benefit from short skilled rehab versus home with assist and home health. Goals Grooming Goal Independent Dressing Goal Independent Toileting Goal Independent Bathing Goal Independent Toilet Transfer Goal Independent Shower Transfer Goal Independent Days to Meet Goals 4 Treatment Plan OT Treatment Plan ADL Training,Functional Mobility,Therapeutic Exercises, Patient/Family Education,Discharge Planning Discharge Recommendations OT Discharge Home with Assistance,Home Health,Home vs SNF Recommendations Transportation Needs Private Vehicle,Wheelchair/Cabulance at Discharge
[2025-01-13 12:00] VITALS: BP 120/80; PULSE 90; RESP 17; TEMP 36.7; O2SAT 98
[2025-01-13 18:00] VITALS: BP 127/83; PULSE 66; RESP 17; O2SAT 97
[2025-01-13 19:00] VITALS: BP 106/65; PULSE 111; RESP 19; TEMP 36.1; O2SAT 96
[2025-01-14] MEDS: PIPERACILLIN/TAZO 3.375 GM in SODIUM CHLORIDE 0.9% 100 ML IV ×2 (01:14→08:27)
[2025-01-14] MEDS: LEVOTHYROXINE 125 MCG TABLET 62.5 MCG PO (05:26)
[2025-01-14] MEDS: SODIUM CHLORIDE 0.9% 1,000 ML 100 ML IV (05:26)
[2025-01-14 05:32] VITALS: BP 130/86; PULSE 107; RESP 18; TEMP 36.4; O2SAT 97
[2025-01-14] MEDS: LOPERAMIDE 2 MG CAPSULE PO (07:02)
[2025-01-14 08:19] VITALS: BP 97/50; PULSE 88; RESP 14; TEMP 36.9; O2SAT 97
--- NOTE | 2025-01-14 08:21 | PM.PN.1 ---
Subjective Subjective Date Patient Seen: 01/13/25 Interval history: Chief complaint: Generalized weakness and leukopenia post chemotherapy History of present illness: 01/10: (per nocturnal physician) 75-year-old female with past medical history of metastatic and recurrent breast cancer currently on chemotherapy, alcoholism in remission for the last 4 years, anxiety, and hypothyroidism presents with generalized weakness. Per the patient report the patient had treatment for her recurrent metastatic left breast cancer 14 days ago. Since then the patient has had increasing generalized weakness. The patient however denies any recent fever, chills, nausea, vomiting, diarrhea, chest pain or shortness of breath. Denies any dysuria or coughing. When EMS arrived the patient was found to be slightly hypotensive and IV fluid bolus was given. In the emergency room, the patient was having low normal blood pressure with initial blood pressure 109/55. The patient however was saturating well on room air without any signs of fever. Labs shows a WBC of 2.8 potassium 3.3 sodium 130 and the rest are relatively benign with negative viral respiratory panel. Lactate is also normal. The patient was initially given vancomycin and Zosyn due to concern of sepsis with hypotension. The patient was in sinus tachycardic with heart rate in the [address] angio of the chest shows no PE and chest x-ray shows no acute finding. CT scan of the abdomen shows enteritis versus possible early partial small bowel obstruction. General surgeon Dr. Urena was consulted who agreed that the patient should be admitted for medical management and will see the patient in the morning. Hospital course: 01/10: White blood cell count de-escalated slightly to 2.1 overnight patient has not had any fevers or chills abdominal pain nausea vomiting or diarrhea no cough 01/11: White blood cell count increased to 3.6 patient however is having diarrhea but is feeling a bit stronger tolerating diet calcium still low and potassium was also low at 2 point IV replacement ordered with resultant correction of potassium to 3.4 and calcium to 6.8 01/12: Still hyponatremic having to and with low magnesium still replacing IV probable discharge tomorrow 01/13: Patient doing much better however having severe anxiety depression about her treatment failure for her breast cancer case management working on arranging to meet her needs and will be discharged in the morning Review of systems: As above No headache diplopia blurred vision No changes In level of consciousness no paresthesia paresis Physical examination: Very fatigued ill appearing elderly female but less fatigued in yesterday HEENT unremarkable oropharynx without lesions Neck no adenopathy Heart rate and rhythm regular Lungs clear no rales Abdomen nondistended nontender bowel sounds present Extremities no edema Assessment and plan Enteritis with possible early small obstruction but clinical picture favors ileus. Resume doses of Zosyn today Repletion of calcium and potassium intravenously Generalized weakness. Likely due to dehydration as above. Dehydration. IV fluid. Leukopenic. Likely related to recent chemotherapy. Improving zeinab at 2.1 now 3.6 Anxiety. Resume home medication. Hypothyroidism. Resume home Synthroid. DVT prophylaxis Heparin subcu. CODE STATUS DNR/DNI. Disposition Likely home tomorrow Time based billin minutes were involved evaluating this patient's pruning [id number] evaluation physical examination review of medical records review of objective laboratory and imaging findings discussion with patient and family Exam Vital Signs (past 8 hours): - 01/14/25 05:32 01/14/25 08:19 Temperature 97.6 F 98.4 F Pulse Rate 107 H 88 Respiratory Rate 18 14 Blood Pressure 130/86 97/50 L Pulse Oximetry 97 97 Oxygen Flow Rate 0 0 Fraction of Inspired Oxygen 28 SaO2/FiO2 Ratio 353 Oxygen Delivery Method Room Air Oxygen Flow Rate 0 Objective Labs 01/11/25 08:15 01/13/25 04:30 PFSH Medical History (Updated 01/09/25 @ 22:20 by Navid Silverman DO) History of alcoholism Arthritis Depression Anxiety Hemorrhoids Fibroids Skin cancer Thyroid disease Breast cancer, left (2018) Surgical History (Updated 06/07/22 @ 12:48 by Esther Loaiza MD) Hx of bilateral breast reduction surgery History of lumpectomy of left breast (2019) Social History household members: other Smoking Status: Never smoker alcohol intake: former substance use type: does not use Assessment & Plan Time-Based Coding :: [TOTAL MINUTES] spent with patient and on the chart (including review of chart, obtaining history, exam, reviewing outside data, placing orders, documenting exam and treatment plan, and counseling patient) on [DATE].
--- NOTE | 2025-01-14 08:23 | P.DS_ITS ---
History of Present Illness History of Present Illness Date Patient Seen: 01/14/25 Chief complaint: Generalized weakness leukopenia post chemotherapy Narrative: Chief complaint: Generalized weakness and leukopenia post chemotherapy History of present illness: 01/10: (per nocturnal physician) 75-year-old female with past medical history of metastatic and recurrent breast cancer currently on chemotherapy, alcoholism in remission for the last 4 years, anxiety, and hypothyroidism presents with generalized weakness. Per the patient report the patient had treatment for her recurrent metastatic left breast cancer 14 days ago. Since then the patient has had increasing generalized weakness. The patient however denies any recent fever, chills, nausea, vomiting, diarrhea, chest pain or shortness of breath. Denies any dysuria or coughing. When EMS arrived the patient was found to be slightly hypotensive and IV fluid bolus was given. In the emergency room, the patient was having low normal blood pressure with initial blood pressure 109/55. The patient however was saturating well on room air without any signs of fever. Labs shows a WBC of 2.8 potassium 3.3 sodium 130 and the rest are relatively benign with negative viral respiratory panel. Lactate is also normal. The patient was initially given vancomycin and Zosyn due to concern of sepsis with hypotension. The patient was in sinus tachycardic with heart rate in the [address] angio of the chest shows no PE and chest x-ray shows no acute finding. CT scan of the abdomen shows enteritis versus possible early partial small bowel obstruction. General surgeon Dr. Urena was consulted who agreed that the patient should be admitted for medical management and will see the patient in the morning. Hospital course: 01/10: White blood cell count de-escalated slightly to 2.1 overnight patient has not had any fevers or chills abdominal pain nausea vomiting or diarrhea no cough 01/11: White blood cell count increased to 3.6 patient however is having diarrhea but is feeling a bit stronger tolerating diet calcium still low and potassium was also low at 2 point IV replacement ordered with resultant correction of potassium to 3.4 and calcium to 6.8 01/12: Still hyponatremic having to and with low magnesium still replacing IV probable discharge tomorrow 01/13:-12-4: Patient with good return of strength walking with PT arrangements made for discharge home case management Review of systems: As above No headache diplopia blurred vision No changes In level of consciousness no paresthesia paresis Physical examination: Very fatigued ill appearing elderly female but less fatigued in yesterday HEENT unremarkable oropharynx without lesions Neck no adenopathy Heart rate and rhythm regular Lungs clear no rales Abdomen nondistended nontender bowel sounds present Extremities no edema Assessment and plan Enteritis with possible early small obstruction but clinical picture favors ileus. * Resume doses of Zosyn today * Repletion of calcium and potassium intravenously Generalized weakness. * Likely due to dehydration as above. Dehydration. * IV fluid. Leukopenic. Likely related to recent chemotherapy. * Improving zeinab at 2.1 now 3.6 Anxiety. * Resume home medication. Hypothyroidism. * Resume home Synthroid. DVT prophylaxis * Heparin subcu. CODE STATUS * DNR/DNI. Disposition * Discharge to home Time based billing: * 35 minutes were involved evaluating this patient's pruning [id number] evaluation physical examination review of medical records review of objective laboratory and imaging findings discussion with patient and family Discharge Providers Provider Date of admission: 01/09/25 22:47 Discharge Date: 01/14/25 Primary care physician: Chiquita Larson DO Consults: 01/09/25 22:48 Consult to Occupational Therapy Evaluate & Treat Comment: Physician Instructions: Evaluate and treat Consult to Physical Therapy Evaluate & Treat Comment: Physician Instructions: Evaluate and Treat 01/10/25 10:33 Consult to Pharmacy Routine Comment: fall risk 01/11/25 15:55 Consult to Pharmacy Routine Comment: fall risk 01/12/25 15:18 Consult to Home Health Routine Comment: Reason For Exam: RN, Aide Discharge provider: Jens Petit MD Exam Vital Signs (past 8 hours): - 01/14/25 05:32 01/14/25 08:19 Temperature 97.6 F 98.4 F Pulse Rate 107 H 88 Respiratory Rate 18 14 Blood Pressure 130/86 97/50 L Pulse Oximetry 97 97 Oxygen Flow Rate 0 0 Fraction of Inspired Oxygen 28 SaO2/FiO2 Ratio 353 Oxygen Delivery Method Room Air Oxygen Flow Rate 0 Objective Labs 01/11/25 08:15 01/13/25 04:30 [facility] Medical History (Updated 01/09/25 @ 22:20 by Navid Silverman DO) History of alcoholism Arthritis Depression Anxiety Hemorrhoids Fibroids Skin cancer Thyroid disease Breast cancer, left (2019) Surgical History (Updated 06/07/22 @ 12:48 by Esther Loaiza MD) Hx of bilateral breast reduction surgery History of lumpectomy of left breast (2019) Social History household members: other Smoking Status: Never smoker alcohol intake: former substance use type: does not use Discharge Plan Discharge Plan Patient Disposition: Home Discharge orders & Medications Prescriptions: New loperamide 2 mg Capsule 2 mg PO Q6H PRN (Reason: Diarrhea) Qty: 10 0RF potassium chloride [Klor-Con M20] 20 mEq Tablet,Er Particles/Crystals 40 meq PO BIDWM Qty: 6 0RF magnesium oxide 500 mg capsule 500 mg PO BID Qty: 10 0RF calcium carbonate 400 mg calcium (1,000 mg) tablet,chewable 400 mg PO BID Qty: 10 0RF Continued alprazolam 1 mg tablet 1 mg PO Q6H PRN (Reason: anxiety) Rx Instructions: as needed prior to MRI olanzapine 5 mg tablet 5 mg PO ONCE PM capecitabine 500 mg tablet 500 mg PO .COMPLEX Rx Instructions: 500 mg orally; lidocaine-prilocaine 2.5-2.5 % cream See Rx Instructions topical .COMPLEX Rx Instructions: topically once every 3 weeks; metronidazole 0.75 % gel 1 applic topical BID levothyroxine 125 mcg tablet 62.5 mcg PO DAILY Qty: 45 1RF Rx Instructions: Take one half tablet by mouth once a day allopurinol 100 mg tablet 100 mg PO DAILY Qty: 90 1RF zoledronic acid 4 mg/5 mL solution 4 mg IV .q3 mos Rx Instructions: administer over at least 15 mins calcium carb-mag hydrox-simeth 1,000-200-40 mg tablet,chewable 1 tab PO DAILY acetaminophen [Tylenol] 325 mg Capsule 325 mg PO QID PRN (Reason: Pain (Scale Score 4-6)) Follow up/Referrals: Chiquita Larson DO [Primary Care Provider, Family Practice] Visit Report/Discharge Packet Stand Alone Forms: Patient Portal/API, Stroke Signs & Symptoms Discharge Data Primary Care Provider: Chiquita Larson
[2025-01-14] MEDS: POTASSIUM CHLORIDE 20 MEQ TAB 40 MEQ PO (08:26)
[2025-01-14] MEDS: HEPARIN 5,000 UNIT/ML VIAL 5000 UNIT SUBCUT (08:27)
[2025-01-14] MEDS: LACTOBACILLUS ACIDOPHILUS TABLET 1 EACH PO (08:27)
[2025-01-14] MEDS: ONDANSETRON 4 MG/2 ML INJ IV (10:52)
--- NOTE | 2025-01-14 11:10 | PC.NURSE ---
Addendum entered by Yadira Mix RN 01/14/25 11:17: Deaccessed pt port with help of Jessica Bell, pt tolerated well. All VSWNL. All belongings with pt son. Provided discharge education on medications and referrals. Pt and son stated all questions answered. No belongings in pharm, drawer, or safe. Pt escorted out via WC by LUIS Barker with family member. Original Note: Pt reported BLE edema, SOB with exertion, heartburn, and vomiting. Informed MD Petit; provided verbal orders for IV Zofran. Pt reporting feeling much better after zofran, thinks that vomiting and SOB d/t nerves, no other new orders at this time.
--- NOTE | 2025-01-14 11:23 | CM.DPC ---
CM spoke with patient at bedside. Patient is still agreeable to DC with [facility]ELD[facility] and [facility]. Jose Raul's son, Gautam, will be transporting patient home around 11 AM today.
== END 2025-01-14 11:10 | disposition home health service (06) | DRG 392 ==
LOC: ED 22:25 → AC 22:48
PROVIDERS: Internal Medicine; Admitting Provider Internal Medicine; Emergency Provider Student in an Organized Health Care Education/Training Program; PCP Family Medicine; Referring Provider Student in an Organized Health Care Education/Training Program; Visit Provider Internal Medicine
DX: K52.9 Noninfective gastroenteritis and colitis, unspecified (principal); K56.609 Unspecified intestinal obstruction, unspecified as to partial versus complete obstruction; K56.7 Ileus, unspecified; E86.0 Dehydration; F10.21 Alcohol dependence, in remission; C50.912 Malignant neoplasm of unspecified site of left female breast; R00.0 Tachycardia, unspecified; F41.9 Anxiety disorder, unspecified; E03.9 Hypothyroidism, unspecified; R53.1 Weakness; E83.42 Hypomagnesemia; D70.1 Agranulocytosis secondary to cancer chemotherapy; F32.A Depression, unspecified; T45.1X5A Adverse effect of antineoplastic and immunosuppressive drugs, initial encounter; Z66 Do not resuscitate; Z79.890 Hormone replacement therapy
CPT/HCPCS: 36415; 70450; 71045; 71275; 74177; 80048; 80053; 81001; 82550; 83605; 83690; 83735; 83880; 84484; 85007; 85025; 85610; 85730; 87040; 87086; 87507; 87633; 93005; 94762; 96365; 96366; 96367; 96375; 97116; 97162; 97165; 97530; 97535; 99284; J0612; J1642; J1644; J2060; J2405; J2543; J3375; J3475; J7030; J7050; Q9967